=== PATIENT | male | born 1945 | race Hispanic/Latino ===

== ENCOUNTER 2018-12-12 10:04 | Observation (INO) | payer OTHER ==
--- OUTSIDE RECORDS SUMMARY | 2018-12-12 10:07 | XMS REPORT ---
:1945 [facility] Address [address] [place] [address] Care Team Providers Name Role Phone CLINT DIAZ Primary Care Provider Unavailable CLINT DIAZ Unavailable Unavailable Problems This patient has no known problems. Allergies, Adverse Reactions, Alerts This patient has no known allergies or adverse reactions. Medications This patient has no known medications. Encounters Start End Encounter Admission Attending Care Care Encounter Date/Time Date/Time Type Type Clinicians Facility Department ID 2017-08-19 2017-08-19 Outpatient C [facility] [id number] 15:42:00 15:42:00 CLINT Results Test Description Test Time Test Comments Text Results Atomic Results Result Comments Lipid Profile 2017-08-20 21:28:00 Test Item Value Reference Range Comments Cholesterol (test code=CHOL) 160 mg/dL 0-200 Triglycerides (test code=TRIG) 157 mg/dL 9-200 HDL (test code=HDL) 30 mg/dL 40-60 Chol/HDL (test code=CHOLPHDL) 5.3 Ratio 0.0-5.0 LDL, Calculated (test 99 0-130 (NOTE)RISK OF HEART DISEASEPublished code=LDLC) by [place] Heart AssociationAnalyte Optimal Boderline Increased RiskCHOL <200 200-239 >240TRIG <150 150-199 >200HDL Male: >60 <40HDL Female: >60 <50LDL <100 130-159 >160LDL NEAR OPTIMAL IS 100-129 VLDL (test code=VLDL) 31 mg/dL 5-40 LDL/HDL (test code=LDLPHDL) 3 Lipid [id number] 21:39:00 Test Item Value Reference Range Comments Cholesterol (test 102 mg/dL 0-200 code=CHOL) Triglycerides (test 220 mg/dL 9-200 code=TRIG) HDL (test code=HDL) 20 mg/dL 40-60 Chol/HDL (test 5.1 Ratio 0.0-5.0 code=CHOLPHDL) LDL, Calculated (test 38 0-130 (NOTE)RISK OF HEART code=LDLC) DISEASEPublished by [place] Heart AssociationAnalyte Optimal Boderline Increased RiskCHOL <200 200-239 >240TRIG <150 150-199 >200HDL Male: >60 <40HDL Female: >60 <50LDL <100 130-159 >160LDL NEAR OPTIMAL IS 100-129 VLDL (test code=VLDL) 44 mg/dL 5-40 LDL/HDL (test code=LDLPHDL) 2 Comprehensive Metabolic [id number] 21:39:00 Test Item Value Reference Range Comments Sodium (test code=NA) 132 mmol/L 135-145 Potassium (test code=K) 4.7 mmol/L 3.5-5.1 Chloride (test code=CL) 97 mmol/L 98-105 Carbon Dioxide (test 24 mmol/L 22-29 code=CO2) Glucose (test code=GLU) 249 mg/dL 70-115 Blood Urea Nitrogen (test 18 mg/dL 8-23 code=BUN) Creatinine (test 1.5 mg/dL 0.7-1.2 code=CREAT) Calcium (test code=CA) 9.0 mg/dL 8.3-10.5 Prot Total (test code=TP) 6.2 g/dL 6.4-8.3 Albumin (test code=ALB) 4.2 g/dL 3.5-5.2 A/G Ratio (test 2.1 Ratio code=AGRATIO) Globulin (test code=GLOB) 2.0 2.9-3.1 Bili Total (test 0.4 mg/dL 0.1-0.9 code=TBIL) Alk Phos (test 81 U/L 40-129 code=APHOS) AST (test code=AST) 19 U/L 1-40 ALT (test code=ALT) 15 U/L 1-41 BUN/Creatinine Ratio 12.0 (test code=BCRATIO) Anion Gap (test 11 mmol/L 7-16 code=AGAP) Estimated GFR (test 49 mL/min/1.73m2 eGFR (estimated Glomerular code=GFR) Filtration Rate) is an estimated value,calculated from the patient's serum creatinine using the MDRD equation.It is NOT the patient's actual GFR. The eGFR provides a more clinicallyuseful measure of kidney disease than serum creatinine alone.This calculation takes sex and race into account, if the informationis provided. If the race is not provided, and the patient isAfrican-[place], multiply by 1.212. If sex is not provided, and thepatient is female, multiply by 0.742. Results for patients <18 years ofage have not been validated by the MDRD study and should be interpretedwith caution.eGFR Result Interpretation:eGFR > or=60 is in the Normal RangeeGFR < 60 may mean kidney diseaseeGFR < 15 may mean kidney failureRanges recommended by the National Kidney Foundation,http://nkdep.nih .gov Glycosylated [id number] 21:32:00 Test Item Value Reference Range Comments HBA1c (test code=HBA1C) 7.8 % 4.8-5.9 CBC with [id number] 20:41:00 Test Item Value Reference Range Comments WBC (test code=WBC) 15.1 K/cumm 4.4-10.5 RBC (test code=RBC) 5.02 M/cumm 4.10-5.70 Hemoglobin (test code=HGB) 14.4 gm/dL 13.4-17.4 Hematocrit (test code=HCT) 46.6 % 38.7-52.0 MCV (test code=MCV) 92.7 fL 80-100 MCH (test code=MCH) 28.7 pg 27.0-32.5 MCHC (test code=MCHC) 30.9 g/dL 32.0-37.5 RDW (test code=RDW) 14.3 % 11.5-14.5 Platelet Count (test code=PLTCT) 235 K/cumm 140-440 MPV (test code=MPV) 9.0 fL Diff Method (test code=DIFFM) Auto Neutrophil (test code=NEUT) 38.3 % 36-70 Lymphocyte (test code=LYMPH) 50.0 % 12-44 Monocyte (test code=MONO) 9.3 % 0-11 Eosinophil (test code=EOS) 1.7 % 0-7 Basophil (test code=BASO) 0.8 % 0-2 Neutro Abs (test code=ANEUT) 5.8 K/cumm 1.6-7.4 Lymph Abs (test code=ALYMPH) 7.5 K/cumm 0.5-4.6 Dixon Abs (test code=AMONO) 1.4 K/cumm 0.0-1.2 Eos Abs (test code=AEOS) 0.25 K/cumm 0.00-0.74 Baso Abs (test code=ABASO) 0.1 K/cumm 0.00-0.21
[2018-12-12 11:16] LABS: Protime INR 1.15
[2018-12-12 11:23] LABS: MPV 10.4 fL (7.6-11.3); RBC Red Blood Cell Count 2.17 M/uL (4.33-5.43)
--- NOTE | 2018-12-12 11:25 | RAD REPORT ---
EXAM DESCRIPTION: RAD - Chest Single View - 12/12/2018 10:51 am CLINICAL HISTORY: Anemia, CLL, shortness of breath COMPARISON: April 2007 TECHNIQUE: AP portable chest image was obtained in 1044 hours . FINDINGS: Lungs are clear. Mediastinal and hilar regions show no mass or lymphadenopathy. Heart and vasculature are normal. No measurable pleural effusion and no pneumothorax. No acute bony abnormality seen. No acute aortic findings suspected. IMPRESSION: No acute cardiopulmonary process. No significant change from comparison.
[2018-12-12 11:31] LABS: ALT/SGPT 11 U/L (12-78); AST/SGOT 12 U/L (15-37); Alkaline Phosphatase 72 U/L (45-117); BUN Blood Urea Nitrogen 27 mg/dL (7-18); Bicarbonate 29 mmol/L (21-32); Bilirubin Direct < 0.1 mg/dL (0-0.2); Bilirubin Total 0.2 mg/dL (0.2-1.0); Glucose Level 95 mg/dL (74-106); Magnesium 2.3 mg/dL (1.8-2.4); NT PRO-BNP 386 pg/mL (<450); Potassium 4.6 mmol/L (3.5-5.1); Protein, Total 6.8 g/dL (6.4-8.2); Sodium Level 142 mmol/L (136-145); Troponin (Emerg Dept Use Only) < 0.02 ng/mL (0.0-0.045)
[2018-12-12 12:03] LABS: Platelet Estimate DECR
[2018-12-12 12:05] LABS: Anisocytosis SLIGHT; Blood Morphology Comment NOTED (NOT SEEN); Macrocytosis SLIGHT
--- NOTE | 2018-12-12 12:25 | ER ---
Nurse's Notes [facility] Name: Bhavesh Mary Jr Age: 73 yrs Sex: Male : 1945 Arrival Date: 12/12/2018 Time: 10:06 Bed 18 Private MD: Chanel Silva Diagnosis: Anemia in chronic diseases classified elsewhere Presentation: 12/12 10:37 Presenting complaint: Patient states: was sent by Dr. Riddle for anemia, pt has hx of iw CLL, had labs drawn today. Transition of care: patient was not received from another setting of care. Onset of symptoms was December 12, 2018. Risk Assessment: Do you want to hurt yourself or someone else? Patient reports no desire to harm self or others. Initial Sepsis Screen: Does the patient meet any 2 criteria? No. Patient's initial sepsis screen is negative. Does the patient have a suspected source of infection? No. Patient's initial sepsis screen is negative. Care prior to arrival: None. 10:37 Method Of Arrival: Ambulatory iw 10:37 Acuity: ALTON 3 iw Historical: - Allergies: 10:39 No Known Allergies; iw - PMHx: 13:15 Hypertension; chronic lymphocytic leukemia; Diabetes - IDDM; em - Immunization history:: Adult Immunizations unknown. - Social history:: Smoking status: Patient/guardian denies using tobacco. - Ebola Screening: : Patient negative for fever greater than or equal to 101.5 degrees Fahrenheit, and additional compatible Ebola Virus Disease symptoms Patient denies exposure to infectious person Patient denies travel to an Ebola-affected area in the 21 days before illness onset No symptoms or risks identified at this time. Screenin:19 Abuse screen: Denies threats or abuse. Nutritional screening: No deficits noted. em Tuberculosis screening: No symptoms or risk factors identified. Fall Risk None identified. Assessment: 10:30 General: Appears in no apparent distress. comfortable, Behavior is calm, cooperative, em Denies fever. Pain: Denies pain. Neuro: Level of Consciousness is awake, alert, obeys commands, Oriented to person, place, time, situation, Reports dizziness, several weeks. Cardiovascular: Capillary refill < 3 seconds Patient's skin is warm and dry. Respiratory: Airway is patent Respiratory effort is even, unlabored, Respiratory pattern is regular, symmetrical. GI: Abdomen is flat, Patient currently denies bloody stool. Derm: Skin is intact, is healthy with good turgor, Skin is dry, Skin is pale. Musculoskeletal: Capillary refill < 3 seconds, Range of motion: intact in all extremities. 11:19 Reassessment: Patient appears in no apparent distress at this time. Patient and/or em family updated on plan of care and expected duration. Pain level reassessed. Patient is alert, oriented x 3, equal unlabored respirations, skin warm/dry/pink. Patient denies pain at this time. 12:08 Reassessment: Dr. Arce at bedside. iw 13:07 Reassessment: Patient appears in no apparent distress at this time. Patient and/or em family updated on plan of care and expected duration. Pain level reassessed. Patient is alert, oriented x 3, equal unlabored respirations, skin warm/dry/pink. eating lunch tray, ate 100%, tolerated well Patient denies pain at this time. Vital Signs: 10:19 BP 136 / 43; Pulse 80; Resp 18; Pulse Ox 99% on R/A; Pain 0/10; em 11:19 BP 130 / 44; Pulse 69; Resp 18; Pulse Ox 98% on R/A; em 12:14 BP 127 / 53; Pulse 71; Resp 16; Pulse Ox 100% on R/A; em 13:09 BP 160 / 54; Pulse 80; Resp 16; Temp 97.8(O); Pulse Ox 100% on R/A; Pain 0/10; em ED Course: 10:06 Patient arrived in ED. as 10:06 Chanel Silva MD is Private Physician. as 10:15 Jeanette Suh, SHARLENE is Primary Nurse. iw 10:23 [facility]onsalez [facility]. cp 10:23 Jan Early MD is Attending Physician. cp 10:30 Patient has correct armband on for positive identification. Placed in gown. Bed in low em position. Call light in reach. Adult w/ patient. whitewater rafting guide on. Pulse ox on. NIBP on. 10:38 Triage completed. iw 10:39 Arm band placed on. iw 10:48 Initial lab(s) drawn, by me, sent to lab. T\T\S collected, blood band applied to patient. em1 10:48 Inserted saline lock: 20 gauge in right antecubital area, using aseptic technique. em1 Blood collected. 10:50 X-ray completed. Portable x-ray completed in exam room. Patient tolerated procedure jb2 well. 10:52 XRAY Chest (1 view) In Process Unspecified. EDMS 12:24 Yan Arce DO is Hospitalizing Provider. cp 12:56 EKG done, by hydroelectric plant technician. reviewed by Jerson BRUMFIELD. tc 13:30 No provider procedures requiring assistance completed. Patient admitted, IV remains in em place. Administered Medications: No medications were administered Outcome: 12:24 Decision to Hospitalize by Provider. cp 13:30 Admitted to Med/surg accompanied by tech, family with patient, via wheelchair, room em 425, with chart, Report called to SHARLENE Foster 13:30 Condition: good 13:30 Instructed on the need for admit, Demonstrated understanding of instructions. 13:48 Patient left the ED. em Signatures: Dispatcher [employer] EDMS Horacio Huerta jb2 Gualberto Camarena, LOCOMOTIVE FIRER LOCOMOTIVE FIRER em Gris Vergara Irene, RN SHARLENE Miguel Angel Vergara em1 Heidi Perales, operational risk analyst EKG Ttc Jerson Gonsalez PA PA cp
--- NOTE | 2018-12-12 12:25 | EDPHYS ---
Physician Documentation [facility] Name: Bhavesh Mary Jr Age: 73 yrs Sex: Male : 1945 Arrival Date: 12/12/2018 Time: 10:06 Bed 18 Private MD: Chanel Silva ED Physician Jan Early HPI: 12/12 10:40 This 73 yrs old Male presents to ER via Ambulatory with complaints of Abnormal cp Lab Results. 10:40 Patient reports general fatigue. cp 10:40 Onset: The symptoms/episode began/occurred gradually. Patient referred to ED from cp oncology for anemia. Patient with history of Small Lymphocytic Lymphoma. Patient not currently receiving chemo or radiation. Historical: - Allergies: 10:39 No Known Allergies; iw - PMHx: 13:15 Hypertension; chronic lymphocytic leukemia; Diabetes - IDDM; em - Immunization history:: Adult Immunizations unknown. - Social history:: Smoking status: Patient/guardian denies using tobacco. - Ebola Screening: : Patient negative for fever greater than or equal to 101.5 degrees Fahrenheit, and additional compatible Ebola Virus Disease symptoms Patient denies exposure to infectious person Patient denies travel to an Ebola-affected area in the 21 days before illness onset No symptoms or risks identified at this time. ROS: 10:45 Constitutional: Positive for fatigue, Negative for body aches, chills, fever, poor PO cp intake. 10:45 Eyes: Negative for injury, pain, redness, and discharge. cp 10:45 ENT: Negative for drainage from ear(s), ear pain, sore throat, difficulty swallowing, difficulty handling secretions. 10:45 Cardiovascular: Negative for chest pain, edema, palpitations. 10:45 Respiratory: Negative for cough, shortness of breath, wheezing. 10:45 Abdomen/GI: Negative for abdominal pain, vomiting, diarrhea, constipation, black/tarry stool, rectal bleeding. 10:45 Skin: Negative for cellulitis, rash. 10:45 Neuro: Negative for altered mental status, dizziness, headache, syncope, weakness. 10:45 All other systems are negative. Exam: 11:00 Constitutional: The patient appears in no acute distress, alert, awake, cp non-diaphoretic, non-toxic, well developed, well nourished. 11:00 Head/Face: Normocephalic, atraumatic. cp 11:00 Eyes: Periorbital structures: appear normal, Pupils: equal, round, and reactive to light and accomodation, Extraocular movements: intact throughout, Conjunctiva: normal, no exudate, no injection, Sclera: no appreciated abnormality, Lids and lashes: appear normal, bilaterally. 11:00 ENT: External ear(s): are unremarkable, Nose: is normal, Mouth: Lips: moist, Oral mucosa: moist, Posterior pharynx: Airway: no evidence of obstruction, patent. 11:00 Neck: ROM/movement: is normal, is supple, without pain, no range of motions limitations, no nuchal rigidity. 11:00 Chest/axilla: Inspection: normal, Palpation: is normal, no crepitus, no tenderness. 11:00 Cardiovascular: Rate: normal, Rhythm: regular, Edema: ankle edema, that is mild, JVD: is not appreciated. 11:00 Respiratory: the patient does not display signs of respiratory distress, Respirations: normal, no use of accessory muscles, no retractions, no splinting, no tachypnea, labored breathing, is not present, Breath sounds: are clear throughout, no decreased breath sounds, no stridor, no wheezing. 11:00 Abdomen/GI: Inspection: abdomen appears normal, Bowel sounds: active, all quadrants, Palpation: abdomen is soft and non-tender, Rectal exam: Stool: brown, guaiac negative. 11:00 Back: pain, is absent, ROM is normal. 11:00 Skin: Appearance: normal except for affected area, Color: pale. 11:00 Neuro: Orientation: to person, place \T\ time. Mentation: is normal, Cerebellar function: is grossly normal, Motor: moves all fours, strength is normal. 11:38 ECG was reviewed by the Attending Physician. cp Vital Signs: 10:19 BP 136 / 43; Pulse 80; Resp 18; Pulse Ox 99% on R/A; Pain 0/10; em 11:19 BP 130 / 44; Pulse 69; Resp 18; Pulse Ox 98% on R/A; em 12:14 BP 127 / 53; Pulse 71; Resp 16; Pulse Ox 100% on R/A; em 13:09 BP 160 / 54; Pulse 80; Resp 16; Temp 97.8(O); Pulse Ox 100% on R/A; Pain 0/10; em MDM: 10:35 Patient medically screened. cp 12:10 Data reviewed: vital signs, nurses notes, lab test result(s), EKG, radiologic studies, cp plain films. 12:10 Differential Diagnosis chronic anemia, GI bleed. Test interpretation: by ED physician cp or midlevel provider: ECG, plain radiologic studies. Counseling: I had a detailed discussion with the patient and/or guardian regarding: the historical points, exam findings, and any diagnostic results supporting the discharge/admit diagnosis, lab results, radiology results. 12:20 Physician consultation: Yan Arce DO regarding admission, to the telemetry unit. cp patient's condition, and will see patient in ED, shortly. 12/12 10:33 Order name: Basic Metabolic Panel; Complete Time: 11:40 cp 12/12 11:40 Interpretation: Normal except: BUN 27; CRE 1.94; GFR 34. cp 12/12 10:33 Order name: CBC with Diff cp 12/12 11:41 Interpretation: Normal except: WBC 21.6; RBC 2.17; HGB 7.4; HCT 23.0; MCV 105.9; MCH cp 34.3; PLT 67; RDW 15.6. 12/12 10:33 Order name: LFT's; Complete Time: 11:40 cp 12/12 11:50 Interpretation: Normal except: AST 12; ALT 11. cp 12/12 10:33 Order name: Magnesium; Complete Time: 11:40 cp 12/12 10:33 Order name: NT PRO-BNP; Complete Time: 11:40 cp 12/12 10:33 Order name: PT-INR; Complete Time: 11:40 cp 12/12 10:33 Order name: Troponin (emerg Dept Use Only); Complete Time: 11:40 cp 12/12 10:33 Order name: XRAY Chest (1 view); Complete Time: 11:40 cp 12/12 10:33 Order name: EKG; Complete Time: 10:36 cp 12/12 10:33 Order name: Cardiac monitoring; Complete Time: 12:33 cp 12/12 10:53 Order name: Type And Screen iw 12/12 12:05 Order name: Manual Differential EDMS 12/12 12:28 Order name: Diet Regular; Complete Time: 12:31 em1 12/12 13:02 Order name: ABO/RH no charge EDMT 12/12 10:33 Order name: EKG - Nurse/Tech; Complete Time: 12:33 cp 12/12 10:33 Order name: IV Saline Lock; Complete Time: 11:07 cp 12/12 10:33 Order name: Labs collected and sent; Complete Time: 11:07 cp 12/12 10:33 Order name: O2 Per Protocol; Complete Time: 12:32 cp 12/12 10:33 Order name: O2 Sat Monitoring; Complete Time: 12:32 cp EC:38 Rate is 68 beats/min. Rhythm is regular. [place] interval is normal. QRS interval is cp prolonged at 132 msec. QT interval is normal. Interpreted by me. Reviewed by me. Administered Medications: No medications were administered Disposition: 16:52 Co-signature as Attending Physician, Jan Early MD. Disposition: 12/12/18 12:24 Hospitalization ordered by Yan Arce for Observation. Preliminary diagnosis is Anemia in chronic diseases classified elsewhere. - Bed requested for Telemetry/MedSurg (observation). - Status is Observation. em - Condition is Stable. - Problem is new. - Symptoms are unchanged. UTI on Admission? No Signatures: Dispatcher [employer] [facility] Gualberto Camarena, HAZARDOUS MATERIALS WASTE TECHNICIAN HAZARDOUS MATERIALS WASTE TECHNICIAN em Jeanette Suh RN RN Jerson Monteiro PA PA cp Starr, Gregory, MD MD Hiral Alba Corrections: (The following items were deleted from the chart) 12:41 12:24 Hospitalization Ordered by Yan Arce DO for Observation. Preliminary eb diagnosis is Anemia in chronic diseases classified elsewhere. Bed requested for Telemetry/MedSurg (observation). Status is Observation. Condition is Stable. Problem is new. Symptoms are unchanged. UTI on Admission? No. cp 13:48 12:41 12/12/2018 12:24 Hospitalization Ordered by Yan Arce DO for Observation. em Preliminary diagnosis is Anemia in chronic diseases classified elsewhere. Bed requested for Telemetry/MedSurg (observation). Status is Observation. Condition is Stable. Problem is new. Symptoms are unchanged. UTI on Admission? No. eb
--- NOTE | 2018-12-12 12:42 | P.HP ---
Certification for Inpatient Patient admitted to: Observation With expected LOS: <2 Midnights Patient will require the following post-hospital care: None Practitioner: I am a practitioner with admitting privileges, knowledge of patient current condition, hospital course, and medical plan of care. Services: Services provided to patient in accordance with Admission requirements found in Title 42 Section 412.3 of the Code of Federal Regulations Patient History Date of Service: 12/12/18 Primary Care Provider: Dr. Moura([place], [place]); Oncology-Dr. Howard Reason for admission: Abnormal lab History of Present Illness: 73-year-old male presented to the emergency room due to abnormal lab. Patient has history of CLL/SLL, CAD with prior stent, diabetes mellitus type 2 insulin dependent, hypertension, stage III renal disease and hyperlipidemia. Patient has followed up with Oncology for his CLL/SLL. Patient had lab drawn today at his oncologist office which showed abnormal lab. Hemoglobin was 7.5. This has been different since his baseline. Last hemoglobin 8.3 done last week as reported by oncology. Oncology is currently working up his anemia. Oncology planned for outpatient transfusion but this could not be arranged. Therefore patient was sent for further evaluation. In the ER patient reported no nausea, vomiting, diarrhea, constipation, melena or chest pain. Patient reports no coughing up blood or vomiting of blood. Patient only reports some lightheadedness and fatigue over the last week. No shortness of breath noted. In the ER hemoglobin was 7.4, hematocrit 23. White count 21.6 with a platelet count of 67. Sodium 142, potassium 4.0. Creatinine 1.94 with a GFR 34. Glucose 94. Patient was admitted for further evaluation and transfusion. When I saw the patient ER, he appeared stable. Case discussed with oncology. Due to his cardiac disease oncology recommended admission for observation for transfusion of at least 2 units. Patient reports last EGD colonoscopy done 3 years ago, unremarkable. Home medications list reviewed: Yes - Past Medical/Surgical History Diabetic: Yes -: Diabetes mellitus type 2, insulin dependent -: Hypertension -: CAD with prior stents -: Hyperlipidemia -: CLL/SLL -: Chronic renal disease, stage III -: Heart catheterization with 4 stents -: Appendectomy -: Right knee replacement Psychosocial/ Personal History: Patient is . He has no children - Family History Father -: Cancer (Unknown etiology) - Social History Smoking Status: Former smoker Alcohol use: No CD- Drugs: No Caffeine use: Yes Place of Residence: Home Review of Systems General: Weakness, As per HPI Eyes: Unremarkable ENT: Unremarkable Respiratory: Unremarkable Cardiovascular: Light Headedness, As per HPI Gastrointestinal: Unremarkable Genitourinary: Unremarkable Musculoskeletal: Unremarkable Integumentary: Unremarkable Neurological: Unremarkable Lymphatics: Unremarkable Physical Examination - Physical Exam General: Alert, In no apparent distress, Oriented x3, Cooperative HEENT: Atraumatic, Normocephalic, PERRLA, Mucous membr. moist/pink Neck: Supple, No Thyromegaly Respiratory: Clear to auscultation bilaterally, Normal air movement Cardiovascular: Normal pulses, Regular rate/rhythm Gastrointestinal: Normal bowel sounds, Soft and benign, Non-distended, No tenderness, No masses, No rebound, No guarding Musculoskeletal: No erythema, No tenderness, No warmth Integumentary: Tenderness/swelling (Pedal edema to the lower extremities bilateral noted.) Neurological: Normal speech, Normal strength at 5/5 x4 extr, Normal tone, Normal affect - Studies Laboratory Data (last 24 hrs) 12/12/18 10:48: PT 13.5 H, INR 1.15 12/12/18 10:48: WBC 21.6 H*, Hgb 7.4 L*, Hct 23.0 L, Plt Count 67 L 12/12/18 10:48: Sodium 142, Potassium 4.6, BUN 27 H, Creatinine 1.94 H, Glucose 95, Magnesium 2.3, Total Bilirubin 0.2, AST 12 L, ALT 11 L, Alkaline Phosphatase 72 Assessment and Plan - Plan Impression: Acute on chronic anemia with thrombocytosis related to CLL/SLL CAD with prior stents Diabetes mellitus type 2, insulin-dependent Hypertension Hyperlipidemia Edema to the lower extremities Chronic renal disease, stage III Plan: Acute on chronic anemia with thrombocytosis related to CLL/SLL: Case discussed with oncology. Patient will be admitted for observation. Oncology recommends to transfuse at least 2 units. She prefers to have hemoglobin above 9.0 due to his cardiac history. Oncology is actively working up his anemia as an outpatient. Patient to have CT scans and bone marrow biopsy next week. Patient previously had EGD colonoscopy 3 years ago which was unremarkable. Patient will likely require GI evaluation as an outpatient. Will continue with transfusion. Will provide Lasix 20 mg IV after each unit. Will continue monitor closely. Anticipate discharge tomorrow. CAD with prior stents: Will review and restart home medication. Diabetes mellitus type 2, insulin-dependent: Will start basal insulin and sliding scale. Will monitor and adjust appropriately. Hypertension: Will need to review and restart home medication. Hyperlipidemia: Will need to review and restart home medication. Edema to the lower extremities: Mild pitting edema to the lower extremities bilateral. Will check echocardiogram to evaluate for underlying CHF. Patient will be given Lasix after each transfusion. Will monitor and adjust appropriately. Chronic renal disease, stage III: This can be further addressed as an outpatient. Will monitor closely. Will adjust medication per renal function. Recommended no use of nonsteroidal anti-inflammatories. Future medications will need to be renally dosed. Discharge Plan: Home Plan to discharge in: 24 Hours - Advance Directives Does patient have a Living Will: No Does patient have a Durable POA for Healthcare: No - Code Status/Comfort Care Code Status Assessed: Yes (Patient is full code.) Time Spent Managing Pts Care (In Minutes): 55
[2018-12-12] MEDS ORDERED: GLUCAGON 1 MG/VIAL IM PRN (13:16)
[2018-12-12] MEDS ORDERED: ONDANSETRON 4 MG/2 ML VIAL IV PRN (13:16)
[2018-12-12] MEDS ORDERED: ACETAMINOPHEN 500 MG TAB PO PRN (13:16)
[2018-12-12] MEDS ORDERED: D50W 25 GM/50 ML SYRINGE IV PRN (13:16)
--- NOTE | 2018-12-12 13:22 | EKG ---
Test Date: 2018-12-12 Test Time: 11:30:49 Certified Registered Locksmith: CHU MEASUREMENT RESULTS: Intervals: Rate: 68 IA: 168 QRSD: 132 QT: 422 QTc: 448 Merritt: P: 52 IA: 168 QRS: 12 T: 19 INTERPRETIVE STATEMENTS: Normal sinus rhythm Right bundle branch block Cannot rule out Inferior infarct, age undetermined Abnormal ECG No previous ECG available for comparison Electronically Signed On 12-12-18 13:22:16 CDT by Ian Johnson
[2018-12-12 13:54] VITALS: BMI 25.9
[2018-12-12] MEDS: FAMOTIDINE 20 MG TAB PO SCH (14:31)
[2018-12-12] MEDS ORDERED: NA CHLORIDE 0.9% 250 ML ONE (14:38)
[2018-12-12 14:50] LABS: Urine Appearance CLEAR; Urine Bilirubin NEGATIVE (NEG); Urine Blood NEGATIVE (NEG); Urine Color YELLOW; Urine Glucose NEGATIVE (NEG); Urine Protein TRACE (NEG); Urine Specific Gravity 1.015 (1.005-1.030); Urine pH 7.5 (5.0-7.0)
[2018-12-12 14:57] LABS: Urine Microscopic Reflex ORDER UMIC
[2018-12-12 15:06] LABS: Urine Bacteria <20 /HPF (NONE SEEN); Urine Culture Reflex Order NOT NEEDED; Urine Mucus 1+ /HPF (NONE SEEN); Urine RBC NONE SEEN /HPF (NONE SEEN)
[2018-12-12] MEDS: INSULIN -REGULAR HUMAN 50 UNIT/0.5 ML ML SQ SCH ×2 (15:55→21:00)
[2018-12-12] MEDS: FUROSEMIDE 20 MG/ 2ML VIAL IV SCH (18:39)
[2018-12-12] MEDS ORDERED: ATORVASTATIN 10 MG TAB PO SCH (21:00)
[2018-12-12] MEDS: INSULIN GLARGINE 100 UNITS/ML SQ SCH ×2 (21:00→22:03)
[2018-12-12] MEDS: GABAPENTIN 300 MG CAP PO SCH (22:02)
[2018-12-13] MEDS ORDERED: NA CHLORIDE 0.9% 250 ML ONE (00:03)
[2018-12-13] MEDS: FUROSEMIDE 20 MG/ 2ML VIAL IV SCH (02:54)
[2018-12-13 04:25] LABS: Absolute Lymphocytes (CBC) 23.4 K/uL (0.7-4.9); Basophils % 0.1 % (0-1.3); Eosinophils % 0.3 % (0-4.4); Hematocrit 31.3 % (39.6-49.0); Lymphocytes % 94.7 % (15.3-44.8); Monocytes % 0.8 % (3.3-12.3); RBC Red Blood Cell Count 3.23 M/uL (4.33-5.43)
[2018-12-13 04:33] LABS: Magnesium 2.2 mg/dL (1.8-2.4); Potassium 4.4 mmol/L (3.5-5.1)
[2018-12-13] MEDS: INSULIN -REGULAR HUMAN 50 UNIT/0.5 ML ML SQ SCH ×2 (07:30→11:30)
[2018-12-13 08:54] VITALS: TEMP 98.4
[2018-12-13] MEDS ORDERED: LISINOPRIL 10 MG TAB PO SCH ×2 (09:00)
[2018-12-13] MEDS ORDERED: TAMSULOSIN 0.4 MG SR CAP PO SCH (09:00)
[2018-12-13] MEDS ORDERED: ALLOPURINOL 100 MG TAB PO SCH (09:00)
[2018-12-13] MEDS ORDERED: ASPIRIN EC 81 MG TAB PO SCH (09:00)
[2018-12-13] MEDS ORDERED: SITAGLIPTIN PHOS 100 MG TAB PO SCH (09:00)
[2018-12-13] MEDS: GABAPENTIN 300 MG CAP PO SCH (09:09)
[2018-12-13] MEDS: FAMOTIDINE 20 MG TAB PO SCH (09:10)
[2018-12-13 10:59] VITALS: O2SAT 98
--- NOTE | 2018-12-13 11:58 | P.DS ---
Admission Date: 12/12/18 Discharge Date: 12/13/18 Primary Care Provider: Dr. Moura([place], [place]); Oncology-Dr. Howard Disposition: ROUTINE DISCHARGE Discharge Condition: GOOD Reason for Admission: Abnormal lab Consultations: Hematology/Oncology-Dr. 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 Patient has history of CLL/SLL, CAD with prior stent, diabetes mellitus type 2 insulin dependent, hypertension, stage III renal disease and hyperlipidemia. Patient has followed up with Oncology for his CLL/SLL. Patient had lab drawn today at his oncologist office which showed abnormal lab. Hemoglobin was 7.5. This has been different since his baseline. Last hemoglobin 8.3 done last week as reported by oncology. Oncology is currently working up his anemia. Oncology planned for outpatient transfusion but this could not be arranged. Therefore patient was sent for further evaluation. In the ER patient reported no nausea, vomiting, diarrhea, constipation, melena or chest pain. Patient reports no coughing up blood or vomiting of blood. Patient only reports some lightheadedness and fatigue over the last week. No shortness of breath noted. In the ER hemoglobin was 7.4, hematocrit 23. White count 21.6 with a platelet count of 67. Sodium 142, potassium 4.0. Creatinine 1.94 with a GFR 34. Glucose 94. Patient was admitted for further evaluation and transfusion. When I saw the patient ER, he appeared stable. Case discussed with oncology. Due to his cardiac disease oncology recommended admission for observation for transfusion of at least 2 units. Patient reports last EGD colonoscopy done 3 years ago, unremarkable. Hospital Course: Patient presented with acute on chronic anemia with thrombocytosis related to CLL/SLL. Patient was sent from Oncology office due to low hemoglobin. Hemoglobin was 7.4. Oncology was not able to arrange for outpatient transfusion. Patient required hospitalization for transfusion to maintain hemoglobin above 8.0 due to his underlying CAD. Patient was given 2 units of blood. Hemoglobin improved to 10.2. Patient asymptomatic at this time. Patient will be discharged home today. Patient will follow up with oncology on Saturday. Oncology plans for CT scans and bone marrow biopsy next week. Oncology to further monitor and address closely. Patient may require GI evaluation as an outpatient to further address as well. This may require EGD/ colonoscopy. Patient with history of CAD and prior stents, hypertension. Blood pressure remained stable. At discharge he will continue with lisinopril 20 mg daily. Recommend to maintain blood pressures less 150/80. Further adjustment can be done by his PCP. Patient with diabetes mellitus type 2, insulin dependent. Blood sugar remained stable. At discharge he will continue with his insulin regimen of Levemir 45 units subcu daily and 35 units subcu at supper time. Patient also takes Januvia 100 mg daily. Recommend to maintain blood sugars less 140 fasting and less than 200 after meals. Further adjustment can be done by his PCP. Patient with hyperlipidemia. Patient will continue with Lipitor 10 mg at bedtime. Patient with diabetic neuropathy. Patient will continue with gabapentin 300 mg twice daily. Patient with chronic renal disease, stage III. This remained stable. Patient will continue with allopurinol 100 mg 2 pills daily. Recommend to recheck lab- BMP in 1-2 weeks to monitor his progress. Recommend follow up with nephrology as an outpatient to further address. Recommend no further use of nonsteroidal anti-inflammatories. Future medications will need to be renally dosed. Patient likely with underlying diastolic chronic CHF. Patient will continue with his Lasix regimen as directed. Patient will continue with a 1500 cc per day fluid restriction and low-salt diet. If his weight increases by more than 5 lb he is to contact his PCP or superintendent communications to further address. Vital Signs/Physical Exam: Temp Pulse Resp BP Pulse Ox 98.4 F 66 16 158/68 H 98 12/13/18 08:00 12/13/18 09:09 12/13/18 08:00 12/13/18 09:09 12/13/18 08:00 General: Alert, In no apparent distress, Oriented x3, Cooperative HEENT: Atraumatic Neck: Supple Respiratory: Clear to auscultation bilaterally, Normal air movement Cardiovascular: Normal pulses, Regular rate/rhythm Gastrointestinal: Normal bowel sounds, Soft and benign, Non-distended, No tenderness, No masses, No rebound, No guarding Musculoskeletal: No erythema, No tenderness, No warmth Integumentary: No tenderness/swelling, No erythema, No warmth, No cyanosis Neurological: Normal speech, Normal strength at 5/5 x4 extr, Normal tone, Normal affect Laboratory Data at Discharge: WBC 24.6 K/uL (4.3-10.9) H* 12/13/18 03:50 Hgb 10.2 g/dL (13.6-17.9) L D 12/13/18 03:50 Hct 31.3 % (39.6-49.0) L D 12/13/18 03:50 Plt Count 62 K/uL (152-406) L 12/13/18 03:50 PT 13.5 SECONDS (9.5-12.5) H 12/12/18 10:48 INR 1.15 12/12/18 10:48 Sodium 140 mmol/L (136-145) 12/13/18 03:50 Potassium 4.4 mmol/L (3.5-5.1) 12/13/18 03:50 BUN 28 mg/dL (7-18) H 12/13/18 03:50 Creatinine 2.07 mg/dL (0.55-1.3) H 12/13/18 03:50 Glucose 79 mg/dL (74-106) 12/13/18 03:50 Magnesium 2.2 mg/dL (1.8-2.4) 12/13/18 03:50 Total Bilirubin 0.2 mg/dL (0.2-1.0) 12/12/18 10:48 AST 12 U/L (15-37) L 12/12/18 10:48 ALT 11 U/L (12-78) L 12/12/18 10:48 Alkaline Phosphatase 72 U/L (45-117) 12/12/18 10:48 Home Medications: Allopurinol 2 tab PO DAILY 12/12/18 Atorvastatin Calcium 1 tab PO BEDTIME 12/12/18 Furosemide 0.5 tab PO SEECOM 12/12/18 Gabapentin 1 tab PO BID 12/12/18 Insulin Detemir [Levemir Flextouch] 35 unit SQ DAILY AT SUPPER 12/12/18 Insulin Detemir [Levemir Flextouch] 45 unit SQ DAILY 12/12/18 Lisinopril [Prinivil*] 1 tab PO DAILY 12/12/18 Sitagliptin Phosphate [Januvia*] 1 tab PO DAILY 12/12/18 Tamsulosin [Flomax*] 1 tab PO DAILY 12/12/18 Patient Discharge Instructions: 1. Recommend a follow up with his PCP in 1-2 weeks to follow up this hospitalization. 2. Patient presented with acute on chronic anemia with thrombocytosis related to CLL/SLL. Patient was sent from Oncology office due to low hemoglobin. Hemoglobin was 7.4. Oncology was not able to arrange for outpatient transfusion. Patient required hospitalization for transfusion to maintain hemoglobin above 8.0 due to his underlying CAD. Patient was given 2 units of blood. Hemoglobin improved to 10.2. Patient asymptomatic at this time. Patient will be discharged home today. Patient will follow up with oncology on Saturday. Oncology plans for CT scans and bone marrow biopsy next week. Oncology to further monitor and address closely. Patient may require GI evaluation as an outpatient to further address as well. This may require EGD/colonoscopy. 3. Patient with history of CAD and prior stents, hypertension. Blood pressure remained stable. At discharge he will continue with lisinopril 20 mg daily. Recommend to maintain blood pressures less 150/80. Further adjustment can be done by his PCP. 4. Patient with diabetes mellitus type 2, insulin dependent. Blood sugar remained stable. At discharge he will continue with his insulin regimen of Levemir 45 units subcu daily and 35 units subcu at supper time. Patient also takes Januvia 100 mg daily. Recommend to maintain blood sugars less 140 fasting and less than 200 after meals. Further adjustment can be done by his PCP. 5. Patient with hyperlipidemia. Patient will continue with Lipitor 10 mg at bedtime. 6. Patient with diabetic neuropathy. Patient will continue with gabapentin 300 mg twice daily. 7. Patient with chronic renal disease, stage III. This remained stable. Patient will continue with allopurinol 100 mg 2 pills daily. Recommend to recheck lab-BMP in 1-2 weeks to monitor his progress. Recommend follow up with nephrology as an outpatient to further address. Recommend no further use of nonsteroidal anti-inflammatories. Future medications will need to be renally dosed. 8. Patient likely with underlying diastolic chronic CHF. Patient will continue with his Lasix regimen as directed. Patient will continue with a 1500 cc per day fluid restriction and low-salt diet. If his weight increases by more than 5 lb he is to contact his PCP or superintendent communications to further address. Diet: Renal Activity: Fall precautions Followup: Pant Dhodapkar,Chanel, MD [ACTIVE - CAN ADMIT] - (call to schedule appointment ) Time spent managing pt's care (in minutes): 55
[2018-12-13 12:41] VITALS: BP 154/60
--- NOTE | 2018-12-15 07:34 | ECHO ---
HEIGHT: 5 ft 8 in WEIGHT: 171 lb 0 oz DATE OF STUDY: 12/12/[address]: Yan Arce DO 2-DIMENSIONAL: YES M.MODE: YES DOPPLER: YES COLOR FLOW: YES TDS: PORTABLE: DEFINITY: BUBBLE STUDY: DIAGNOSIS: CORNARY ARTERY DISEASE, HYPERTENSION CARDIAC HISTORY: CATHERIZATION: YES SURGERY: NO PROSTHETIC VALVE: NO PACEMAKER: NO MEASUREMENTS (cm) DIASTOLIC (NORMALS) SYSTOLIC (NORMALS) IVSd 1.0 (0.6-1.2) LA Diam 4.1 (1.9-4.0) LVEF 66% LVIDd 3.9 (3.5-5.7) LVIDs 2.5 (2.0-3.5) %FS 36% LVPWd 1.0 (0.6-1.2) Ao Diam 2.8 (2.0-3.7) 2 DIMENSIONAL ASSESSMENT: RIGHT ATRIUM: NORMAL LEFT ATRIUM: DILATED RIGHT VENTRICLE: NORMAL LEFT VENTRICLE: NORMAL TRICUSPID VALVE: NORMAL MITRAL VALVE: NORMAL PULMONIC VALVE: NORMAL AORTIC VALVE: NORMAL PERICARDIAL EFFUSION: NONE AORTIC ROOT: NORMAL LEFT VENTRICULAR WALL MOTION: NORMAL DOPPLER/COLOR FLOW: MILD MITRAL AND TRICUSPID REGURGITATION. NORMAL RIGHT VENTRICULAR SYSTOLIC PRESSURE. COMMENTS: NORMAL LEFT VENTRICULAR EJECTION FRACTION. DILATED LEFT ATRIUM. MILD MITRAL AND TRICUSPID REGURGITATION. TECHNOLOGIST: CARLO GAMBOA
== END 2018-12-13 11:35 | disposition home or self-care (01) ==
LOC: ER 10:04 → ERHOLD 12:38 → 4TH 13:19
PROVIDERS: ADMIT Family Medicine; ATTEND Family Medicine
PROC: 30233N1 Transfusion of Nonautologous Red Blood Cells into Peripheral Vein, Percutaneous Approach (ICD-10-PCS; principal; 2018-12-13)
DX: D64.9 Anemia, unspecified (principal); D47.3 Essential (hemorrhagic) thrombocythemia; C91.10 Chronic lymphocytic leukemia of B-cell type not having achieved remission; I25.10 Atherosclerotic heart disease of native coronary artery without angina pectoris; E78.5 Hyperlipidemia, unspecified; R60.9 Edema, unspecified; I12.9 Hypertensive chronic kidney disease with stage 1 through stage 4 chronic kidney disease, or unspecified chronic kidney disease; E11.22 Type 2 diabetes mellitus with diabetic chronic kidney disease; N18.3 Chronic kidney disease, stage 3 (moderate); Z95.5 Presence of coronary angioplasty implant and graft; E11.40 Type 2 diabetes mellitus with diabetic neuropathy, unspecified
CPT/HCPCS: 36430 ×2; 93005; 93306; 85025 ×2; 80048 ×2; 36415 ×2; 86900; 83735 ×2; 86850; 85610; 85044; 86901; 82962 ×4; 80076; 84484; 82746; 82607; 83880; 82668; 71045; 99285; J1940 ×2; P9016 ×2; 81003; 81015

== ENCOUNTER 2018-12-29 14:22 | Emergency (ER) | payer OTHER ==
--- OUTSIDE RECORDS SUMMARY | 2018-12-29 14:27 | XMS REPORT ---
:1945 [facility] Address [address] [place] [address] [address]. [address] [place] [address] Care Team Providers Name Role Phone CLINT [...] Department ID 2017-08-19 2017-08-19 Outpatient C [facility] [id number] 15:42:00 15:42:00 CLINT Results Test Description Test Time Test Comments Text Results Atomic Results Result Comments Lipid Profile 2017-08-20 21:28:00 Test Item Value Reference Range Comments Cholesterol (test code=CHOL) 160 mg/dL 0-200 Triglycerides (test code=TRIG) 157 mg/dL 9-200 HDL (test code=HDL) 30 mg/dL 40-60 Chol/HDL (test code=CHOLPHDL) 5.3 Ratio 0.0-5.0 LDL, Calculated (test 99 0-130 (NOTE)RISK OF HEART DISEASEPublished code=LDLC) by [place] Heart AssociationAnalyte Optimal Boderline Increased RiskCHOL <200 200-239 >240TRIG <150 150-199 >200HDL Male: >60 <40HDL Female: >60 <50LDL <100 130-159 >160LDL NEAR OPTIMAL IS 100-129 VLDL (test code=VLDL) 31 mg/dL 5-40 LDL/HDL (test code=LDLPHDL) 3 Lipid [id number] 21:39:00 Test Item Value Reference Range Comments Cholesterol (test 102 mg/dL 0-200 code=CHOL) Triglycerides (test 220 mg/dL 9-200 code=TRIG) HDL (test code=HDL) 20 mg/dL 40-60 Chol/HDL (test 5.1 Ratio 0.0-5.0 code=CHOLPHDL) LDL, Calculated (test 38 0-130 (NOTE)RISK OF HEART code=LDLC) DISEASEPublished by [place] Heart AssociationAnalyte Optimal Boderline Increased RiskCHOL <200 200-239 >240TRIG <150 150-199 >200HDL Male: >60 <40HDL Female: >60 <50LDL <100 130-159 >160LDL NEAR OPTIMAL IS 100-129 VLDL (test code=VLDL) 44 mg/dL 5-40 LDL/HDL (test code=LDLPHDL) 2 Comprehensive Metabolic [id number] 21:39:00 Test Item Value Reference Range Comments [...] race is not provided, and the patient isAfrican-Congolese, multiply by 1.212. If sex is not provided, and thepatient is female, multiply by 0.742. Results for patients <18 years ofage have not been validated by the MDRD study and should be interpretedwith caution.eGFR Result Interpretation:eGFR > or=60 is in the Normal RangeeGFR < 60 may mean kidney diseaseeGFR < 15 may mean kidney failureRanges recommended by the National Kidney Foundation,http://nkdep.nih .gov Glycosylated [id number] 21:32:00 Test Item Value Reference Range Comments HBA1c (test code=HBA1C) 7.8 % 4.8-5.9 CBC with [id number] 20:41:00 Test Item Value Reference Range Comments [...] Lymph Abs (test code=ALYMPH) 7.5 K/cumm 0.5-4.6 [place] Abs (test code=AMONO) 1.4 K/cumm 0.0-1.2 Eos Abs (test code=AEOS) 0.25 K/cumm 0.00-0.74 Baso Abs (test code=ABASO) 0.1 K/cumm 0.00-0.21
[2018-12-29] MEDS ORDERED: D5 0.45 NS 1,000 ML IV ONE (15:12)
[2018-12-29 15:16] LABS: Absolute Lymphocytes (CBC) 23.7 K/uL (0.7-4.9); Eosinophils % 0.3 % (0-4.4); Hematocrit 25.1 % (39.6-49.0); Lymphocytes % 96.9 % (15.3-44.8); MPV 9.7 fL (7.6-11.3); Monocytes % 0.9 % (3.3-12.3); RBC Red Blood Cell Count 2.57 M/uL (4.33-5.43)
[2018-12-29 15:28] LABS: Potassium 4.4 mmol/L (3.5-5.1)
--- NOTE | 2018-12-29 15:45 | EDPHYS ---
Physician Documentation [facility] Name: Bhavesh Mary Jr Age: 73 yrs Sex: Male : 1945 Arrival Date: 12/29/2018 Time: 14:25 Bed 14 Private MD: ED Physician Rubio Robledo HPI: 12/29 15:52 This 73 yrs old Male presents to ER via Ambulatory with complaints of Abnormal kdr Lab Results. 15:52 The patient has been intermittently lightheaded for some weeks. He was sent for a CBC kdr today and his Hgb was noted to be 7.[address] Maldonado asked that he go to the ED. He has no acute or new aspect to his feeling or presentation. Onset: The symptoms/episode began/occurred at an unknown time. Severity of symptoms: At their worst the symptoms were very mild in the emergency department the symptoms are unchanged. The patient has experienced similar episodes in the past, several times. The patient has been recently seen by a physician: the patient's primary care provider. Historical: - Allergies: 14:32 No Known Allergies; aa5 - PMHx: 14:32 chronic lymphocytic leukemia; Diabetes - IDDM; Hypertension; aa5 - Immunization history:: Adult Immunizations unknown. - Social history:: Smoking status: Patient/guardian denies using tobacco. - Ebola Screening: : No symptoms or risks identified at this time. ROS: 15:52 Constitutional: Negative for fever, chills, and weight loss, Eyes: Negative for injury, kdr pain, redness, and discharge, ENT: Negative for injury, pain, and discharge, Neck: Negative for injury, pain, and swelling, Cardiovascular: Negative for chest pain, palpitations, and edema, Respiratory: Negative for shortness of breath, cough, wheezing, and pleuritic chest pain, Abdomen/GI: Negative for abdominal pain, nausea, vomiting, diarrhea, and constipation, Back: Negative for injury and pain, : Negative for injury, bleeding, discharge, and swelling, MS/Extremity: Negative for injury and deformity, Skin: Negative for injury, rash, and discoloration, Psych: Negative for depression, anxiety, suicide ideation, homicidal ideation, and hallucinations, Allergy/Immunology: Negative for hives, rash, and allergies, Endocrine: Negative for neck swelling, polydipsia, polyuria, polyphagia, and marked weight changes, Hematologic/Lymphatic: Negative for swollen nodes, abnormal bleeding, and unusual bruising. 15:52 Neuro: Positive for Light headed - for lack of a better description. Exam: 15:52 Constitutional: This is a well developed, well nourished patient who is awake, alert, kdr and in no acute distress. Head/Face: Normocephalic, atraumatic. Eyes: Pupils equal round and reactive to light, extra-ocular motions intact. Lids and lashes normal. Conjunctiva and sclera are non-icteric and not injected. Cornea within normal limits. Periorbital areas with no swelling, redness, or edema. Neck: Trachea midline, no thyromegaly or masses palpated, and no cervical lymphadenopathy. Supple, full range of motion without nuchal rigidity, or vertebral point tenderness. No Meningismus. Chest/axilla: Normal chest wall appearance and motion. Nontender with no deformity. No lesions are appreciated. Cardiovascular: Regular rate and rhythm with a normal S1 and S2. No gallops, murmurs, or rubs. Normal PMI, no JVD. No pulse deficits. Respiratory: Lungs have equal breath sounds bilaterally, clear to auscultation and percussion. No rales, rhonchi or wheezes noted. No increased work of breathing, no retractions or nasal flaring. Abdomen/GI: Soft, non-tender, with normal bowel sounds. No distension or tympany. No guarding or rebound. No evidence of tenderness throughout. Back: No spinal tenderness. No costovertebral tenderness. Full range of motion. Skin: Warm, dry with normal turgor. Normal color with no rashes, no lesions, and no evidence of cellulitis. MS/ Extremity: Pulses equal, no cyanosis. Neurovascular intact. Full, normal range of motion. Neuro: Awake and alert, GCS 15, oriented to person, place, time, and situation. Cranial nerves II-XII grossly intact. Motor strength 5/5 in all extremities. Sensory grossly intact. Cerebellar exam normal. Normal gait. Psych: Awake, alert, with orientation to person, place and time. Behavior, mood, and affect are within normal limits. Vital Signs: 14:32 BP 130 / 60; Pulse 78; Resp 18 S; Temp 98.8(TE); Pulse Ox 99% on R/A; Weight 78.47 kg aa5 (M); Height 5 ft. 8 in. (172.72 cm); Pain 0/10; 15:55 BP 128 / 58; Pulse 75; Resp 18; Pulse Ox 100% on R/A; hj 14:32 Body Mass Index 26.30 (78.47 kg, 172.72 cm) aa5 MDM: 15:43 ED course: Spoke with Dr. Janessa Adrian d/c and he will contact office for repeat CBC on [facility] Saturday next. 15:44 Patient medically screened. [facility] 15:56 Data reviewed: vital signs, nurses notes, lab test result(s). Counseling: I had a kdr detailed discussion with the patient and/or guardian regarding: the historical points, exam findings, and any diagnostic results supporting the discharge/admit diagnosis, lab results, the need for outpatient follow up. 12/29 14:37 Order name: CBC with Diff kdr 12/29 14:37 Order name: Chem 7; Complete Time: 15:31 kdr 12/29 14:37 Order name: Type And Screen [facility] 12/29 15:53 Order name: CBC Smear Scan EDNM Administered Medications: No medications were administered Disposition: 12/29/18 15:44 Discharged to Home. Impression: Anemia: chronic; CLL. - Condition is Stable. - Discharge Instructions: Anemia, Nonspecific, Aplastic Anemia. - Medication Reconciliation Form, Thank You Letter form. - Follow up: Private Physician; When: 2 - 3 days; Reason: If symptoms return, Further diagnostic work-up, Recheck today's complaints, Continuance of care, Re-evaluation by your physician. - Problem is an ongoing problem. - Symptoms are unchanged. - Notes: Follow-up with Dr. Riddle's office for a possible repeat CBC on Saturday Signatures: Dispatcher [employer] [facility] Rubio Robledo MD MD [facility] Velvet Christina RN RN aa5 Juan Taylor RN RN hj Corrections: (The following items were deleted from the chart) 15:53 15:27 Manual Differential ordered. [facility] 15:59 15:44 12/29/2018 15:44 Discharged to Home. Impression: Anemia: chronic; CLL. Condition hj is Stable. Forms are Medication Reconciliation Form, Thank You Letter, Antibiotic Education, Prescription Opioid Use. Follow up: Private Physician; When: 2 - 3 days; Reason: If symptoms return, Further diagnostic work-up, Recheck today's complaints, Continuance of care, Re-evaluation by your physician. Problem is an ongoing problem. Symptoms are unchanged. kdr
--- NOTE | 2018-12-29 15:45 | ER ---
Nurse's Notes [facility] Name: Bhavesh Mary Jr Age: 73 yrs Sex: Male : 1945 Arrival Date: 12/29/2018 Time: 14:25 Bed 14 Private MD: Diagnosis: Anemia: chronic; CLL Presentation: 12/29 14:30 Presenting complaint: Patient states: "I got a blood transfusion 2 weeks ago and the aa5 doctor thinks I need another one". Pt reports labs today: Hemoglobin 7.6 and Hematocrit 22.2. Pt reports feeling weak and lightheaded. Transition of care: patient was not received from another setting of care. Onset of symptoms was December 29, 2018. Risk Assessment: Do you want to hurt yourself or someone else? Patient reports no desire to harm self or others. Initial Sepsis Screen: Does the patient meet any 2 criteria? No. Patient's initial sepsis screen is negative. Does the patient have a suspected source of infection? No. Patient's initial sepsis screen is negative. Care prior to arrival: None. 14:30 Method Of Arrival: Ambulatory aa5 14:30 Acuity: ALTON 3 aa5 Triage Assessment: 14:40 General: Appears in no apparent distress. uncomfortable, Behavior is calm, cooperative, hj appropriate for age. Pain: Denies pain. Historical: - Allergies: 14:32 No Known Allergies; aa5 - PMHx: 14:32 chronic lymphocytic leukemia; Diabetes - IDDM; Hypertension; aa5 - Immunization history:: Adult Immunizations unknown. - Social history:: Smoking status: Patient/guardian denies using tobacco. - Ebola Screening: : No symptoms or risks identified at this time. Screenin:40 Abuse screen: Denies threats or abuse. Denies injuries from another. Nutritional hj screening: No deficits noted. Tuberculosis screening: No symptoms or risk factors identified. Fall Risk None identified. Assessment: 14:45 General: Appears in no apparent distress. uncomfortable, Behavior is calm, cooperative, hj appropriate for age. Pain: Denies pain. Neuro: Level of Consciousness is awake, alert, obeys commands, Oriented to person, place, time, situation, Appropriate for age. Cardiovascular: Capillary refill < 3 seconds Patient's skin is warm and dry. Respiratory: Airway is patent Respiratory effort is even, unlabored, Respiratory pattern is regular, symmetrical. GI: No signs and/or symptoms were reported involving the gastrointestinal system. : No signs and/or symptoms were reported regarding the genitourinary system. EENT: No signs and/or symptoms were reported regarding the EENT system. Derm: No signs and/or symptoms reported regarding the dermatologic system. Musculoskeletal: No signs and/or symptoms reported regarding the musculoskeletal system. Vital Signs: 14:32 BP 130 / 60; Pulse 78; Resp 18 S; Temp 98.8(TE); Pulse Ox 99% on R/A; Weight 78.47 kg aa5 (M); Height 5 ft. 8 in. (172.72 cm); Pain 0/10; 15:55 BP 128 / 58; Pulse 75; Resp 18; Pulse Ox 100% on R/A; hj 14:32 Body Mass Index 26.30 (78.47 kg, 172.72 cm) aa5 ED Course: 14:25 Patient arrived in ED. rg4 14:30 Arm band placed on. aa5 14:32 Triage completed. aa5 14:34 Juan Taylor, RN is Primary Nurse. hj 14:37 Rubio Robledo MD is Attending Physician. kdr 14:41 Patient has correct armband on for positive identification. Placed in gown. Bed in low hj position. Call light in reach. Side rails up X 1. Adult w/ patient. 14:45 Inserted saline lock: 20 gauge in left antecubital area, using aseptic technique. Blood hj collected. 14:45 Initial lab(s) drawn, by me, sent to lab. First set of blood cultures drawn by me. hj 15:59 No provider procedures requiring assistance completed. IV discontinued, intact, hj bleeding controlled, No redness/swelling at site. Pressure dressing applied. Administered Medications: No medications were administered Outcome: 15:44 Discharge ordered by . kdr 15:59 Discharged to home ambulatory, with family. hj 15:59 Condition: stable 15:59 Discharge instructions given to patient, family, Instructed on discharge instructions, follow up and referral plans. Demonstrated understanding of instructions, follow-up care. 15:59 Patient left the ED. hj Signatures: Rubio Robledo MD MD kdr Calderon, Audri RN RN aa Brandon, Jaun, RN RN hj Hal, Debra rg4
[2018-12-29 15:51] LABS: Blood Morphology Comment NOT SEEN (NOT SEEN); Platelet Estimate DECR; Urine White Blood Cell Casts OK
[2018-12-29 17:13] VITALS: BP 130/60; TEMP 98.8; O2SAT 99
== END 2018-12-29 15:59 | disposition home or self-care (01) ==
LOC: ER 14:22
DX: C91.10 Chronic lymphocytic leukemia of B-cell type not having achieved remission (principal); D63.8 Anemia in other chronic diseases classified elsewhere; I10 Essential (primary) hypertension
CPT/HCPCS: 36415; 80048; 85025; 86850; 86900; 86901; 99283

== ENCOUNTER 2019-01-02 07:22 | Day surgery (SDC) | payer OTHER ==
--- OUTSIDE RECORDS SUMMARY | 2019-01-02 07:25 | XMS REPORT ---
:1945 [facility] Address [address] [place] [address] [address]. [address] [place] [address] Care Team Providers Name Role Phone CLINT [...] Department ID 2017-08-19 2017-08-19 Outpatient C [facility] MED [id number] 15:42:00 15:42:00 CLINT Results Test Description Test Time Test Comments Text Results Atomic Results Result Comments Lipid Profile 2017-08-20 21:28:00 Test Item Value Reference Range Comments Cholesterol (test code=CHOL) 160 mg/dL 0-200 Triglycerides (test code=TRIG) 157 mg/dL 9-200 HDL (test code=HDL) 30 mg/dL 40-60 Chol/HDL (test code=CHOLPHDL) 5.3 Ratio 0.0-5.0 LDL, Calculated (test 99 0-130 (NOTE)RISK OF HEART DISEASEPublished code=LDLC) by [place] Heart AssociationAnalyte Optimal Boderline Increased RiskCHOL <200 200-239 >240TRIG <150 150-199 >200HDL Male: >60 <40HDL Female: >60 <50LDL <100 130-159 >160LDL NEAR OPTIMAL IS 100-129 VLDL (test code=VLDL) 31 mg/dL 5-40 LDL/HDL (test code=LDLPHDL) 3 Lipid [id number] 21:39:00 Test Item Value Reference Range Comments Cholesterol (test 102 mg/dL 0-200 code=CHOL) Triglycerides (test 220 mg/dL 9-200 code=TRIG) HDL (test code=HDL) 20 mg/dL 40-60 Chol/HDL (test 5.1 Ratio 0.0-5.0 code=CHOLPHDL) LDL, Calculated (test 38 0-130 (NOTE)RISK OF HEART code=LDLC) DISEASEPublished by [place] Heart AssociationAnalyte Optimal Boderline Increased RiskCHOL <200 200-239 >240TRIG <150 150-199 >200HDL Male: >60 <40HDL Female: >60 <50LDL <100 130-159 >160LDL NEAR OPTIMAL IS 100-129 VLDL (test code=VLDL) 44 mg/dL 5-40 LDL/HDL (test code=LDLPHDL) 2 Comprehensive Metabolic [id number] 21:39:00 Test Item Value Reference Range Comments [...] race is not provided, and the patient isAfrican-Brazilian, multiply by 1.212. If sex is not provided, and thepatient is female, multiply by 0.742. Results for patients <18 years ofage have not been validated by the MDRD study and should be interpretedwith caution.eGFR Result Interpretation:eGFR > or=60 is in the Normal RangeeGFR < 60 may mean kidney diseaseeGFR < 15 may mean kidney failureRanges recommended by the National Kidney Foundation,http://nkdep.nih .gov Glycosylated [id number] 21:32:00 Test Item Value Reference Range Comments HBA1c (test code=HBA1C) 7.8 % 4.8-5.9 CBC with [id number] 20:41:00 Test Item Value Reference Range Comments [...] Lymph Abs (test code=ALYMPH) 7.5 K/cumm 0.5-4.6 [place] Abs (test code=AMONO) 1.4 K/cumm 0.0-1.2 Eos Abs (test code=AEOS) 0.25 K/cumm 0.00-0.74 Baso Abs (test code=ABASO) 0.1 K/cumm 0.00-0.21
[2019-01-02] MEDS ORDERED: NA CHLORIDE 0.9% 500 ML ONE ×2 (08:16→10:49)
[2019-01-02 08:46] VITALS: O2SAT 97; BMI 26.3
[2019-01-02 13:28] VITALS: BP 140/45; TEMP 98.7
[2019-01-02 16:17] LABS: Hematocrit 29.2 % (39.6-49.0)
== END 2019-01-02 16:00 | disposition home or self-care (01) ==
LOC: DS 07:22
PROVIDERS: ATTEND Internal Medicine Medical Oncology
DX: D64.9 Anemia, unspecified (principal); C83.00 Small cell B-cell lymphoma, unspecified site; C91.10 Chronic lymphocytic leukemia of B-cell type not having achieved remission; C61 Malignant neoplasm of prostate; D72.829 Elevated white blood cell count, unspecified
CPT/HCPCS: 36415; 86900; 86850; 86901; 82962; 85018; 85014; 36430; P9016 ×2

== ENCOUNTER 2019-01-21 07:38 | Day surgery (SDC) | payer OTHER ==
[2019-01-20 15:26] LABS: Albumin 3.7 g/dL (3.4-5.0); Bilirubin Total 0.6 mg/dL (0.2-1.0); Potassium 5.1 mmol/L (3.5-5.1); Protein, Total 6.4 g/dL (6.4-8.2); Uric Acid 12.1 mg/dL (3.5-7.2)
--- OUTSIDE RECORDS SUMMARY | 2019-01-21 07:40 | XMS REPORT ---
:1945 [facility] Address [address] [place] [address] [address]. [address] [place] [address] Care Team Providers Name Role Phone CLINT [...] Department ID 2017-08-19 2017-08-19 Outpatient C [facility] MED [id number] 15:42:00 15:42:00 CLINT Results Test Description Test Time Test Comments Text Results Atomic Results Result Comments Lipid Profile 2017-08-20 21:28:00 Test Item Value Reference Range Comments Cholesterol (test code=CHOL) 160 mg/dL 0-200 Triglycerides (test code=TRIG) 157 mg/dL 9-200 HDL (test code=HDL) 30 mg/dL 40-60 Chol/HDL (test code=CHOLPHDL) 5.3 Ratio 0.0-5.0 LDL, Calculated (test 99 0-130 (NOTE)RISK OF HEART DISEASEPublished code=LDLC) by [place] Heart AssociationAnalyte Optimal Boderline Increased RiskCHOL <200 200-239 >240TRIG <150 150-199 >200HDL Male: >60 <40HDL Female: >60 <50LDL <100 130-159 >160LDL NEAR OPTIMAL IS 100-129 VLDL (test code=VLDL) 31 mg/dL 5-40 LDL/HDL (test code=LDLPHDL) 3 Lipid [id number] 21:39:00 Test Item Value Reference Range Comments Cholesterol (test 102 mg/dL 0-200 code=CHOL) Triglycerides (test 220 mg/dL 9-200 code=TRIG) HDL (test code=HDL) 20 mg/dL 40-60 Chol/HDL (test 5.1 Ratio 0.0-5.0 code=CHOLPHDL) LDL, Calculated (test 38 0-130 (NOTE)RISK OF HEART code=LDLC) DISEASEPublished by [place] Heart AssociationAnalyte Optimal Boderline Increased RiskCHOL <200 200-239 >240TRIG <150 150-199 >200HDL Male: >60 <40HDL Female: >60 <50LDL <100 130-159 >160LDL NEAR OPTIMAL IS 100-129 VLDL (test code=VLDL) 44 mg/dL 5-40 LDL/HDL (test code=LDLPHDL) 2 Comprehensive Metabolic [id number] 21:39:00 Test Item Value Reference Range Comments [...] race is not provided, and the patient isAfrican-Serbian, multiply by 1.212. If sex is not provided, and thepatient is female, multiply by 0.742. Results for patients <18 years ofage have not been validated by the MDRD study and should be interpretedwith caution.eGFR Result Interpretation:eGFR > or=60 is in the Normal RangeeGFR < 60 may mean kidney diseaseeGFR < 15 may mean kidney failureRanges recommended by the National Kidney Foundation,http://nkdep.nih .gov Glycosylated [id number] 21:32:00 Test Item Value Reference Range Comments HBA1c (test code=HBA1C) 7.8 % 4.8-5.9 CBC with [id number] 20:41:00 Test Item Value Reference Range Comments [...] Lymph Abs (test code=ALYMPH) 7.5 K/cumm 0.5-4.6 [place] Abs (test code=AMONO) 1.4 K/cumm 0.0-1.2 Eos Abs (test code=AEOS) 0.25 K/cumm 0.00-0.74 Baso Abs (test code=ABASO) 0.1 K/cumm 0.00-0.21
[2019-01-21] MEDS ORDERED: NA CHLORIDE 0.9% 500 ML ONE (08:09)
[2019-01-21 09:01] VITALS: BMI 26.3
[2019-01-21] MEDS ORDERED: NA CHLORIDE 0.9% 250 ML ONE ×2 (10:19→13:25)
[2019-01-21 14:24] VITALS: O2SAT 100
[2019-01-21 14:59] LABS: Hematocrit 24.9 % (39.6-49.0)
[2019-01-21 15:01] VITALS: BP 166/50; TEMP 97.9
[2019-01-21 15:49] LABS: Platelet Estimate DECR
== END 2019-01-21 14:57 | disposition home or self-care (01) ==
LOC: DS 07:38
PROVIDERS: ATTEND Internal Medicine Medical Oncology
DX: D64.81 Anemia due to antineoplastic chemotherapy (principal); D69.59 Other secondary thrombocytopenia; C91.10 Chronic lymphocytic leukemia of B-cell type not having achieved remission
CPT/HCPCS: 36415 ×2; 86900; 86850; 83615; 85049; 86901; 82962; 84550; 85018; 85014; 80053; 36430; P9035; P9016 ×2

== ENCOUNTER 2019-01-27 07:20 | Day surgery (SDC) | payer OTHER ==
--- OUTSIDE RECORDS SUMMARY | 2019-01-27 07:45 | XMS REPORT ---
:1945 [facility] [address] [place] [address] [address]. [address] [place] [address] Care Team Providers Name Role Phone CLINT [...] Department ID 2017-08-19 2017-08-19 Outpatient C [facility] MED [id number] 15:42:00 15:42:00 CLINT Results Test Description Test Time Test Comments Text Results Atomic Results Result Comments Lipid Profile 2017-08-20 21:28:00 Test Item Value Reference Range Comments Cholesterol (test code=CHOL) 160 mg/dL 0-200 Triglycerides (test code=TRIG) 157 mg/dL 9-200 HDL (test code=HDL) 30 mg/dL 40-60 Chol/HDL (test code=CHOLPHDL) 5.3 Ratio 0.0-5.0 LDL, Calculated (test 99 0-130 (NOTE)RISK OF HEART DISEASEPublished code=LDLC) by [place] Heart AssociationAnalyte Optimal Boderline Increased RiskCHOL <200 200-239 >240TRIG <150 150-199 >200HDL Male: >60 <40HDL Female: >60 <50LDL <100 130-159 >160LDL NEAR OPTIMAL IS 100-129 VLDL (test code=VLDL) 31 mg/dL 5-40 LDL/HDL (test code=LDLPHDL) 3 Lipid [id number] 21:39:00 Test Item Value Reference Range Comments Cholesterol (test 102 mg/dL 0-200 code=CHOL) Triglycerides (test 220 mg/dL 9-200 code=TRIG) HDL (test code=HDL) 20 mg/dL 40-60 Chol/HDL (test 5.1 Ratio 0.0-5.0 code=CHOLPHDL) LDL, Calculated (test 38 0-130 (NOTE)RISK OF HEART code=LDLC) DISEASEPublished by Lao Heart AssociationAnalyte Optimal Boderline Increased RiskCHOL <200 200-239 >240TRIG <150 150-199 >200HDL Male: >60 <40HDL Female: >60 <50LDL <100 130-159 >160LDL NEAR OPTIMAL IS 100-129 VLDL (test code=VLDL) 44 mg/dL 5-40 LDL/HDL (test code=LDLPHDL) 2 Comprehensive Metabolic [id number] 21:39:00 Test Item Value Reference Range Comments [...] race is not provided, and the patient isAfrican-Lao, multiply by 1.212. If sex is not provided, and thepatient is female, multiply by 0.742. Results for patients <18 years ofage have not been validated by the MDRD study and should be interpretedwith caution.eGFR Result Interpretation:eGFR > or=60 is in the Normal RangeeGFR < 60 may mean kidney diseaseeGFR < 15 may mean kidney failureRanges recommended by the National Kidney Foundation,http://nkdep.nih .gov Glycosylated [id number] 21:32:00 Test Item Value Reference Range Comments HBA1c (test code=HBA1C) 7.8 % 4.8-5.9 CBC with [id number] 20:41:00 Test Item Value Reference Range Comments [...] Lymph Abs (test code=ALYMPH) 7.5 K/cumm 0.5-4.6 [place] Abs (test code=AMONO) 1.4 K/cumm 0.0-1.2 Eos Abs (test code=AEOS) 0.25 K/cumm 0.00-0.74 Baso Abs (test code=ABASO) 0.1 K/cumm 0.00-0.21
[2019-01-27] MEDS ORDERED: NA CHLORIDE 0.9% 250 ML ONE ×2 (09:08→11:18)
[2019-01-27 09:43] LABS: Potassium 4.8 mmol/L (3.5-5.1)
[2019-01-27 14:35] VITALS: O2SAT 100; BMI 26.3
[2019-01-27 14:37] VITALS: BP 129/44; TEMP 98.5
== END 2019-01-27 15:30 | disposition home or self-care (01) ==
LOC: DS 07:20
PROVIDERS: ATTEND Internal Medicine Medical Oncology
DX: D63.0 Anemia in neoplastic disease (principal); C91.10 Chronic lymphocytic leukemia of B-cell type not having achieved remission
CPT/HCPCS: 80048; 36415; 86900; 86850; 86901; 85018; 85014; 36430; P9016 ×2

== ENCOUNTER 2019-06-10 21:29 | Inpatient (IN) | payer OTHER ==
--- OUTSIDE RECORDS SUMMARY | 2019-06-11 03:10 | XMS REPORT ---
:1945 [facility] Address [address] [place] [address] Dr. [address] [place] [id number] Care Team Providers Name Role Phone CLINT [...] Department ID 2017-08-19 2017-08-19 Outpatient C [facility] [id number] 15:42:00 15:42:00 CLINT Results Test Description Test Time Test Comments Text Results Atomic Results Result Comments Lipid Profile 2017-08-20 21:28:00 Test Item Value Reference Range Comments Cholesterol (test code=CHOL) 160 mg/dL 0-200 Triglycerides (test code=TRIG) 157 mg/dL 9-200 HDL (test code=HDL) 30 mg/dL 40-60 Chol/HDL (test code=CHOLPHDL) 5.3 Ratio 0.0-5.0 LDL, Calculated (test 99 0-130 (NOTE)RISK OF HEART DISEASEPublished code=LDLC) by [place]mese Heart AssociationAnalyte Optimal Boderline Increased RiskCHOL <200 200-239 >240TRIG <150 150-199 >200HDL Male: >60 <40HDL Female: >60 <50LDL <100 130-159 >160LDL NEAR OPTIMAL IS 100-129 VLDL (test code=VLDL) 31 mg/dL 5-40 LDL/HDL (test code=LDLPHDL) 3 Lipid [id number] 21:39:00 Test Item Value Reference Range Comments Cholesterol (test 102 mg/dL 0-200 code=CHOL) Triglycerides (test 220 mg/dL 9-200 code=TRIG) HDL (test code=HDL) 20 mg/dL 40-60 Chol/HDL (test 5.1 Ratio 0.0-5.0 code=CHOLPHDL) LDL, Calculated (test 38 0-130 (NOTE)RISK OF HEART code=LDLC) DISEASEPublished by Burmese Heart AssociationAnalyte Optimal Boderline Increased RiskCHOL <200 200-239 >240TRIG <150 150-199 >200HDL Male: >60 <40HDL Female: >60 <50LDL <100 130-159 >160LDL NEAR OPTIMAL IS 100-129 VLDL (test code=VLDL) 44 mg/dL 5-40 LDL/HDL (test code=LDLPHDL) 2 Comprehensive Metabolic [id number] 21:39:00 Test Item Value Reference Range Comments [...] race is not provided, and the patient isAfrican-Burmese, multiply by 1.212. If sex is not provided, and thepatient is female, multiply by 0.742. Results for patients <18 years ofage have not been validated by the MDRD study and should be interpretedwith caution.eGFR Result Interpretation:eGFR > or=60 is in the Normal RangeeGFR < 60 may mean kidney diseaseeGFR < 15 may mean kidney failureRanges recommended by the National Kidney Foundation,http://nkdep.nih .gov Glycosylated [id number] 21:32:00 Test Item Value Reference Range Comments HBA1c (test code=HBA1C) 7.8 % 4.8-5.9 CBC with [id number] 20:41:00 Test Item Value Reference Range Comments [...] Lymph Abs (test code=ALYMPH) 7.5 K/cumm 0.5-4.6 [place] Abs (test code=AMONO) 1.4 K/cumm 0.0-1.2 Eos Abs (test code=AEOS) 0.25 K/cumm 0.00-0.74 Baso Abs (test code=ABASO) 0.1 K/cumm 0.00-0.21
--- OUTSIDE RECORDS SUMMARY | 2019-06-11 03:12 | XMS REPORT | Continuity of Care Document ---
:1945 Author Organization [facility] Address [address] [place] [address] Allergies, Adverse Reactions, Alerts No known allergies. Medications Medication Status Dose Units Route Sig Qty Days Start Date End Date Instructions Acetamin/Codeine 300/30 Discontinued 1 ORAL Every 4 Hours August 15, 2018 Mg * As Needed as 3:49pm (One-Time) needed for Acetaminophen W/ Codeine Discontinued 1-2 ORAL Every 4-6 60 October Hours As 1:53pm (One-Time) Needed as needed for Pain Aspirin Active ORAL Once Daily Atorvastatin Active 10 ORAL Once Daily 30 30 Calcium At Bedtime Bacitracin Discontinued 1 TOPICAL Twice A Day 60 August apply to (Topical) for , affected Infection 2018 2018 area(s) 3:49pm Clopidogrel Active 75 ORAL Daily Bisulfate Detemir Active 45 SUBCUTANEOUS Every Insulin * Morning- Insulin Gabapentin Active 300 ORAL Twice A Day Insulin Active 35 SUBCUTANEOUS Once Daily Detemir At Bedtime Lisinopril Active ORAL Once Daily Metoprolol Active 100 ORAL Daily Succinate Ranolazine Active 500 ORAL Twice A Day Sitagliptin Active 50 ORAL Daily Phosphate Tramadol Hcl Discontinued 1-2 ORAL Every 4-6 Hours As 60 October 25, 2015 1:53pm Needed as needed (One-Time) for Pain Amlodipine Discontinued 2.5 ORAL Daily August 192013 Clindamycin Hcl Discontinued 300 ORAL Every 6 Hours 28 7 August 15April for Infection 2019 3:49pm 2018 Clopidogrel Discontinued 75 ORAL Daily November Bisulfate 2014 Doxycycline Discontinued 100 ORAL Every 12 14 7 March Hyclate Hours for 2018 Infection 6:17pm Furosemide Discontinued 20 ORAL Every Other 15 30 April Day 2018 Gabapentin Discontinued 300 ORAL Twice A Day February 17, 2019 Glipizide Discontinued 2.5 ORAL Twice A Day May 09, 2015 Isosorbide Discontinued ORAL Once Daily April Mononitrate 2014 Metformin Hcl Discontinued 1000 ORAL Twice A Day May 09, 2015 Metoprolol Discontinued 50 ORAL Daily April Tartrate 2014 Rosuvastatin Discontinued 20 ORAL Daily April Calcium 2018 Rosuvastatin Discontinued 40 ORAL Daily April Calcium 2014 Tamsulosin Hcl Discontinued 1 ORAL Once Daily April 20, 2019 Trimethoprim/Sul Discontinued 1 ORAL Twice A Day 14 7 August 15April famethoxazole for Infection 2018 3:49pm 2018 Problems Active Problems Medical Problem Onset Date Status Abdominal pain Active CLL (chronic lymphocytic leukemia) Active [id number] Active Lymphadenopathy, abdominal Active Osteoarthritis of right knee Active Osteoarthritis of right knee Active Right knee pain Active Symptomatic anemia Active UTI (urinary tract infection) Active Uncontrolled diabetes mellitus Active Total knee replacement status Active Inactive/Resolved Problems Medical Problem Onset Date Status Abrasion of leg, left Resolved Abscess Resolved Abscess of buttock, right Resolved Allergic rhinitis Resolved Anemia Resolved Anemia Resolved Balanitis Resolved CLL (chronic lymphocytic leukemia) Resolved Cellulitis and abscess of trunk Resolved Cellulitis of left leg Resolved Cellulitis of tragus of left ear Resolved Dizziness Resolved Encounter for wound re-check Resolved Fever Resolved Lira catheter in place Resolved HTN (hypertension) Resolved Hyperglycemia Resolved Hypoglycemia associated with diabetes Resolved Iron deficiency anemia Resolved Leukemia Resolved Pre-syncope Resolved Retention of urine Resolved Type II diabetes mellitus Resolved Upper respiratory infection Resolved Urinary retention Resolved Procedures Procedure Date Performed Status L HRT ARTERY/VENTRICLE ANGIO April 22, 2019 completed COMPLETE CBC W/AUTO DIFF WBC April 22, 2019 completed PROTHROMBIN TIME April 22, 2019 completed THROMBOPLASTIN TIME PARTIAL April 22, 2019 completed ROUTINE VENIPUNCTURE April 22, 2019 completed COMPREHEN METABOLIC PANEL April 22, 2019 completed X-RAY EXAM CHEST 2 VIEWS April 22, 2019 completed ELECTROCARDIOGRAM TRACING April 22, 2019 completed ASSAY GLUCOSE BLOOD QUANT April 22, 2019 completed ROUTINE VENIPUNCTURE April 22, 2019 completed April 22, 2019 completed CATHETER,TRANSLUMINAL ANGIOPLASTY April 22, 2019 completed COMPREHEN METABOLIC PANEL April 29, 2019 completed COMPLETE CBC W/AUTO DIFF WBC April 29, 2019 completed LACTATE (LD) (LDH) ENZYME April 29, 2019 completed ASSAY OF BLOOD/URIC ACID April 29, 2019 completed ROUTINE VENIPUNCTURE April 29, 2019 completed LIPID PANEL May 04, 2019 completed GLYCOSYLATED HEMOGLOBIN TEST May 04, 2019 completed ROUTINE VENIPUNCTURE May 04, 2019 completed ASSAY OF CALCIUM May 20, 2019 completed GLYCOSYLATED HEMOGLOBIN TEST May 20, 2019 completed METABOLIC PANEL TOTAL CA May 20, 2019 completed COMPLETE CBC W/AUTO DIFF WBC May 20, 2019 completed ASSAY OF MAGNESIUM May 20, 2019 completed ASSAY OF SERUM ALBUMIN May 20, 2019 completed ASSAY OF PHOSPHORUS May 20, 2019 completed ASSAY OF BLOOD/URIC ACID May 20, 2019 completed ROUTINE VENIPUNCTURE May 20, 2019 completed PROSTATE SCREENING May 20, 2019 completed X-ray of chest, two views April 20, 2019 completed X-ray of chest, single view June 09, 2019 completed X-ray of chest, single view June 10, 2019 completed Computed tomography of head without contrast June 10, 2019 completed Relevant Diagnostic Tests and/or Laboratory Data Laboratory Results Test Date/Time Result Interpretation Reference Result Comment Performing Range Site White Blood May 2.2 4.0-12.3 [facility], [address] Count 2018 6:40pm [place] [address] Red Blood May 3.66 3.80-5.80 [facility], 104 Count 2018 6:40pm [place] [address] Hemoglobin May 10.7 11.7-17.2 [facility], 104 2018 6:40pm [place] [address] Hematocrit Deangelo 34.6 35.0-51.0 [facility], 104 2018 6:40pm [place] [address] Mean May 94.5 83-100 [facility], 104 Corpuscular 2018 Volume 6:40pm [place] [address] Mean May 29.2 26.8-33.4 [facility], 104 Corpuscular 2018 Hemoglobin 6:40pm [place] [address] Mean May 30.9 30-35 [facility], 104 Corpuscular 2018 Hemoglobin 6:40pm [place] [address] Concent Red Cell May 13.5 12.0-14.0 [facility] [address] Distribution 2018 Width 6:40pm [place] [address] Platelet May 190 175-450 [facility], [address] Count 2018 6:40pm [place] [address] Absolute November 5.9 [facility], [address] [facility] Immature 2018 Platelet 11:35[place] [address] Fraction Immature April 3.9 0-8 [facility], [address] Platelet 2018 Fraction 11:35am [place] [address] Mean Deangelo 11.0 9.4-12.6 [facility], [address] Platelet 2018 Volume 6:40pm [place] [address] Neutrophils Deangelo 0.0 44.7-82.4 [facility] [address] (%) (Auto) 2018 6:40pm [place] [address] Immature Deangelo 0.0 0.0-0.4 [facility] [address] Granulocyte 2018 % (Auto) 6:40pm [place] [address] Lymphocytes Deangelo 77.6 10.0-50.0 [facility] [address] (%) (Auto) 2018 6:40pm [place] [address] Monocytes Deangelo 21.5 3.9-13.4 [facility] [address] (%) (Auto) 2018 6:40pm [place] [address] Eosinophils Deangelo 0 0.0-6.4 [facility] [address] (%) (Auto) 2018 6:40pm [place] [address] Basophils Deangelo 0.9 0.2-1.2 [facility] [address] (%) (Auto) 2018 6:40pm [place] [address] Neutrophils Deangelo 0.00 1.78-5.38 [facility] [address] # (Auto) 2018 6:40pm [place] [address] Absolute Deangelo 0.0 0.0-0.03 [facility] [address] Immature 2018 Granulocyte 6:40pm [place] [address] (auto Lymphocytes Deangelo 1.7 1.32-3.57 [facility] [address] # (Auto) 2018 6:40pm [place] [address] Monocytes # Deangelo 0.48 0.30-0.82 [facility] [address] (Auto) 2018 6:40pm [place] [address] Eosinophils Deangelo 0.00 0.04-0.54 [facility] [address] # (Auto) 2018 6:40pm [place] [address] Basophils # Deangelo 0.02 0.01-0.08 [facility] [address] (Auto) 2018 6:40pm [place] [address] Neutrophils April 5 37.0-80.0 [facility] [address] 2018 12:42pm [place] [address] Lymphocytes April 10-50 [facility] [address] (Manual) 2018 12:42pm [facility] [address] Monocytes April 3 0-12 [facility], [address] [facility] (Manual) 2018 12:42pm [facility] [address] Nucleated May 0 0-0.2 [facility], [address] [facility] Red Blood 2018 Cells % 6:40pm [facility] [address] Nucleated May 0 0 [facility], [address] [facility] Red Blood 2018 Cells # 6:40pm [facility] [address] Platelet April ADEQUATE ADEQUATE [facility], [address] [facility] Estimate 2018 12:42pm [place] [address] Abnormal April NORMAL NORMAL [facility], [address] [facility] Platelet 2018 Morphology 12:42pm [facility] [address] Hypochromasi April 17+ [facility], [address] [facility] a 2018 12:42pm [facility] [address] Macrocytosis April 17+ [facility], [address] [facility] 2018 12:42pm [facility] [address] Iron Level May 31 59-158 [facility], [address] [place] [address] 2018 9:05pm [facility] [address] Total Iron May 324 260-445 [facility], [address] [facility] Binding 2018 Capacity 9:05pm [facility] [address] Iron May 10 15-50 [facility], [address] [place] [address] Saturation 2018 9:05pm [facility] [address] Prothrombin May 11.8 10.3-12.3 THERAPEUTIC [facility], [address] [place] [address] Time 2018 LEVEL: 1.5 to 6:40pm 1.9 times [facility] [address] normal range of PT Prothromb May 1.10 Recommended [facility], [address] [place] [address] Time 2018 therapeutic Internationa 6:40pm range for [place] [id number] l Ratio patients receiving warfarin (coumadin) therapy: INR is 2.0 to 3.0Recommended range for patients with mechanical prosthetic heart valves: INR is 2.5 to 3.5 Activated May 41.4 22.5-37.0 [facility], [address] [place] [address] Partial 2018 Thromboplast 6:40pm [place] [id number] Time Urine Color May LT. YELLOW [facility], [address] [facility] 2018 6:50pm [facility] 33569 Urine May CLEAR CLEAR [facility], [address] [place] [address] Appearance 2018 6:50pm [place] [id number] Urine May 17+ (100 NEGATIVE [facility], [address] Glucose (UA) 2018 mg/dL) 6:50pm [facility] [address] Urine Deangelo NEGATIVE NEGATIVE [facility], [address] Bilirubin 2018 6:50pm [place] [address] Urine Deangelo NEGATIVE NEGATIVE [facility], [address] Ketones 2018 6:50pm [facility] 97897 Urine Deangeol 1.015 1.003-1.03 [facility], 104 Specific 2018 0 [place] 6:50pm [facility] 78995 Urine Blood Deangelo SMALL NEGATIVE [facility], 104 2018 6:50pm [place] [address] Urine pH Deangelo 5.500 5-9 [facility], 104 2018 6:50pm [place] [address] Urine Deangelo TRACE NEGATIVE [facility], [address] [facility] Protein 2018 6:50pm [facility] [address]47 Urine Deangelo 0.2 0.2-1.0 [facility], [address] Urobilinogen 2018 6:50pm [facility] [address] Urine Deangelo NEGATIVE NEGATIVE [facility], [address] [facility] [address] Nitrate 2018 6:50pm [place] [address] Urine Deangelo NEGATIVE NEGATIVE [facility], [address] [facility] Leukocyte 2018 Esterase 6:50pm [facility] [address]2628 Urine RBC Deangelo 0-3 0-5 [facility], 104 2018 6:50pm [facility] 38189 Urine WBC Deangelo 0-2 0-5 [facility], 104 2018 6:50pm [facility] [address] Urine Deangelo OCCASSIONAL 0-5 [facility], [address] [facility] Epithelial 2018 Cells 6:50pm [facility] 80707 Urine Deangelo TRACE None [facility], 104 Bacteria 2018 Detect 6:50pm [facility] [address]68[address] Urine Deangelo NO [facility], [address] [facility] Culture 2018 Reflexed 6:50pm [facility] 577[address] POC April 54 70 - 110 [facility], [address] [facility] [address] Capillary 2018 Blood 6:04am [facility] 32652 Glucose (Chem) Lactic Acid May 0.95 0.5-2.2 [facility], [address] [facility] Level 2018 6:40pm [facility] 359[address] Random Deangelo 149 82-115 [facility], [address] Glucose 2018 6:40pm [facility] 90007 Blood Urea May 32 8-23 [facility], [address] [facility] Nitrogen 2018 6:40pm [place] [address] Serum May 276 280-300 [facility], [address] [facility] Osmolality 2018 6:40pm [place] [address] Creatinine Deangelo 1.8 0.70-1.20 [facility], [address] [facility] 2018 6:40pm [place] [address] Glomerular Deangelo 36.97 GFR RESULTS ARE [facility], [address] [place] [address] Filtration 2018 REPORTED IN Rate Calc 6:40pm mL/min/1.73[place]2.[place] [address] ormal GFR: >60mL/minModera tely decreased GFR: 30-59 mL/minSeverely decreased GFR: 15-29 mL/minKidney Failure (or Dialysis): <15 mL/minThe calculated eGFR is not valid for patients younger than 18 years or older than 75 years. BUN/Creatini May 17.8 12-20 [facility], [address] [facility] ne Ratio 2018 6:40pm [facility] [address] Sodium Level May 133 135-145 [facility], [address] [place] [address] 2018 6:40pm [place] [address] Potassium Deangelo 4.8 3.5-5.2 [facility], [address] [place] [address] Level 2018 6:40pm [place] [address] Chloride May 95 98-108 [facility], [address] [facility] [address] Level 2018 6:40pm [place] [address] Carbon May 22 21-32 [facility], [address] [facility] Dioxide 2018 Level 6:40pm [place] [address] Anion Gap May 20.8 06-05 [facility], [address] [facility] 2018 6:40pm [place] [address] Uric Acid May 6.1 3.4-7.0 [facility], [address] [place] [address] 2018 8:55am [place] [address] Calcium Deangelo 9.2 8.8-10.2 [facility], [address] [place] [address] ST Level 2018 6:40pm [place] [address] Phosphorus Deangelo 4.0 2.5-4.5 [facility], [address] [place] [address] Level 2018 8:55am [place] [address] Magnesium Deangelo 2.2 1.6-2.4 [facility], [address] [place] [address] Level 2018 6:40pm [place] [address] Total Deangelo 7.1 6.6-8.7 [facility], [address] [place] [address] Protein 2018 6:40pm [facility] 94247 Albumin May 4.1 3.5-5.2 [facility], [address] [facility] 2018 6:40pm [facility] 65897 Globulin Deangelo 3.0 [facility], [address] [facility] 2018 6:40pm [facility] 65128 Albumin/Glob Deangel[facility] 1.4 >1.0 [facility] [address] [facility] ulin Ratio 2018 6:40pm [facility] 59063 Total Deangelo 0.5 0.0-1.2 [facility], [address] [facility] Bilirubin 2018 6:40pm [facility] 515[address] Direct Deangelo < 0.20 0.0-0.3 [facility], [address] [facility] Bilirubin 2018 9:05pm [facility] [address]336 Aspartate May 13 15-40 [facility], [address] [facility] Amino Transf 2018 (AST/SGOT) 6:40pm [facility] 35596 Alanine May 8 0-41 [facility], [address] [facility] Aminotransfe 2018 rase 6:40pm [facility] 91893 (ALT/SGPT) Lactate April 156 135-225 [facility], [address] [facility] Dehydrogenas 2018 e 11:35am [facility] 23853 Hemoglobin May 5.2 4.0-6.0 [facility], [address] [facility] A1c 2018 8:55am [facility] 65983 MM-Qsz-Q-Typ May 767 0-450 [facility], [address] [facility] e 2018 Natriuretic 6:40pm [facility] 21819 Peptide Prostate May 4.08 0.0-4.00 [facility], [address] [facility] Specific 2018 Antigen 8:55am [facility] 31417 Total Total May 72 40-130 [facility], [address] [facility] Alkaline 2018 Phosphatase 6:40pm [facility] 36190 Cholesterol April 90 150-200 [facility], [address] [facility] Level 2018 11:15am [facility] [address] Triglyceride April 75 <150 [facility], [address] [facility] s Level 2018 11:15am [facility] 88342 HDL April 40 >55 HDL EXPECTED [facility], [address] [facility] Cholesterol 2018 VALUES:FEMALES: 11:15am >65 mg/dL NO [facility] 28267 RISK 45-65 mg/dL MODERATE RISK <45 mg/dL HIGH RISKMALES: >55 mg/dL NO RISK 35-55 mg/dL MODERATE RISK <35 mg/dL HIGH RISK LDL April <100 LDL Expected [facility], [address] [place] [address] Cholesterol 2018 Values:Optimal 11:15am <100 mg/dLNear [place] [id number] optimal/above optimal 100-129 mg/dLBorderline high 130-159 mg/dLHigh 160-189 mg/dLVery high >190 mg/dL Coronary April 2.[address] Heart 2018 NATIONAL Disease Risk 11:15am CHOLESTEROL [place] [address] Ratio GUIDELINES [facility] ([facility]) guidelines for classificaton, testing and management of cholesterol levels in adults over 20 years of age. This new classification creates three categories of risk for coronary heart disease, regardless of age or sex, according to total and LDL cholesterols levels: Based on total cholesterol levelDesirable <200 mg/dlBorderline -high 200-239 mg/dlHigh >=240 mg/dl Based on cholesterol ratioCHD RISK CHOL/HDL RATIO ----- MALE FEMALE0.5 x Average 3.4 3.31.0 x Average 5.0 4.42.0 x Average 9.6 7.13.0 x Average 13.5 11.0 Ferritin Deangelo 45.4 30-[address] 2018 9:05pm [place] 974984 Ionized May 4.83 4.34-5.[address] Calcium 2018 8:50am [place] [address] Creatine May 45 20-[address] Kinase 2018 6:40pm [place] [address] Troponin I May < 0.30 0.0-0.[address] 2018 clinical 6:40pm studies have [place] [address] shown elevations of cTnI in patients with myocardial injury, as seen in unstable angina pectoris, cardiac contusions, and heart transplants. Elevations have also been seen in patients with rhabdomyolysis and polymyositis.El evated troponin levels point to myocardial injury, but are not necessarily indicative of an ischemic mechanism. The term AK should be used when there is evidence of cardiac damage, as detected by marker proteins in a clinical setting consistent with myocardial ischemia. If the clinical circumstance suggests that an ischemic mechanism is unlikely, other causes of cardiac injury should be considered.For diagnostic purposes, the results should always be assessed in conjunction with the patient's medical history, clinical examination and other findings. Creatine Deangelo < 1.0 0.0-3.6 DIAGNOSTIC [facility], [address] Kinase MB 2018 CITERIA: 6:40pm [facility] [place] [address] CK[facility] RELATIVE INDEX -----SUGGESTIVE OF NON-AMI < or=5 N/AGRAY ZONE (INCONCLUSIVE) > 5 < or=4SUGGESTIVE OF AMI >5 > 4 Microbiology Results Procedure Source Result Collection Result Result Performing Date/Time Date/Time Comment Site Blood Culture BLOOD SPECIMEN HAS June 10May [facility], [address] BEEN 2018 6:40pm 2018 RECEIVED IN 6:48pm [place] [address] LAB AND IS IN PROGRESS. Diagnostic Imaging Reports Report Dictated Date/Time Dictated By Status April 20, 2019 4:08pm Devon Penaloza MD completed Patient: BHAVESH MARY JR MR#: [id number] : 1945 Ordering DrGraciela: CLINT FONTAINE MD Pt Status : PRE [facility] Pt Location: [facility] Date/Time: 04/20/19 1231 Primary Care Physician: ELISABETH JOSEPH MD Technologist(s): JAN DAVIS Procedure(s): [id number] RAD/CHEST 2 VIEWS Signed CHEST 2 VIEWS 04/20/2019 12:31 PM HISTORY: Preoperative. COMPARISON(S): None available. FINDINGS: The lungs are adequately inflated and clear. There is no pneumothorax or pleural effusion. The cardiomediastinal silhouette and pulmonary vasculature are within normal limits. The bones and upper abdomen are unremarkable. IMPRESSION: No acute cardiopulmonary abnormality. Signed by: Devon Penaloza MD on 04/20/2019 4:08 PM Transcribed By: [employer] SIGNED <electronically signed by Devon Penaloza MD> [id number] Devon Penaloza MD April 22, 2019 4:43am CLINT FONTAINE MD completed Patient: BHAVESH MARY JR MR#: [id number] : 1945 Pt Location: [facility] Date/Time: 04/20/19 122 Primary Care Physician: ELISABETH JOSEPH MD Signed [facility] Test Date: 2019-04-19 Pat Name: BHAVESH MARY Department: Room: Gender: Male Activity Assistant: : 1945 Requested By: Braden FONTAINE Order Number: [id number] Reading MD: Verna Beck.A.A.C Measurements Intervals [place] Rate: 72 P: 68 AK: 167 QRS: 87 QRSD: 134 T: 31 QT: 391 QTc: 428 Interpretive Statements Sinus rhythm Right bundle branch block Electronically Signed On 04-22-2019 4:43:30 PROPERTY ECONOMIST by Clint Fontaine M.D. F.A.A.C Transcribed By: [employer] SIGNED <electronically signed by CLINT FONTAINE MD> 2 2 CLINT FONTAINE MD June 09, 2019 12:53am KD MORA MD completed Patient: BHAVESH MARY JR MR#: [id number] : [address] ADEEL TRUJILLO MD Pt Status: REG ER Pt Location: [facility] Date/Time: 06/09/19 0034 Primary Care Physician: ELISABETH JOSEPH MD Technologist(s): PAPITO DAVISON Procedure(s): [id number] RAD/CHEST 1 VIEW Signed Examination: Single AP view of the chest. COMPARISON: Chest 2 views 04/20/2019 INDICATION: Fever IMPRESSION: 1. Lines and Tubes: None 2. Lungs are grossly clear. No consolidation or effusion. 3. Cardiomediastinal silhouette is normal. Pulmonary vasculature is normal. 4. No acute bony abnormalities. Signed by: Dr. Kd Mora M.D. on 06/09/2019 12:53 AM Transcribed By: [employer] SIGNED <electronically signed by KD MORA MD> [id number] KD MORA MD Health Concerns No known health concerns documented Advance Directives Advance Directive Response Recorded Date/Time Advance Directives No October 24, 2015 1:56pm Advance Directive on File No June 10, 2019 5:26pm Directive to Physicians/Living Will No October 24, 2015 1:56pm Organ Donor No October 24, 2015 5:49am Medical Power of Space Buyer No October 24, 2015 5:49am Chief Complaint and Reason for Visit Chief Complaint Abdominal/GI/Nausea/Vomiting Reason for Visit [id number] Encounters Encounter Location(s) Arrival/Admit Date Discharge/Depart Date Provider(s) [facility]arted [place] June 10, [facility] 2018 5:22pm 1:45am [facility] Departed [place] June 08, June 09, [facility] 2019 8:01pm 3:06am [facility] Registered [place] May 20, 2019 NIKOS DUPREE [facility] 8:43am Ctr [facility] [place] [facility] [place] [facility] Registered [place] April 22, 2019 CLINT FONTAINE [facility] 5:34am MD Care Ctr Assessments No Assessments Information Available Functional Status No Functional Status information available Goals No Goals Information Available Immunizations No Immunization Information Available Mental Status No Mental Status Information Available Medical Equipment No Medical Equipment Information available Insurance Providers Guarantor Bhavesh Mary Jr Address [address] [place] [id number] Contact Info. Home Phone: Payer Policy Id Coverage Id Subscriber's Subscriber Id Effective Expiration Name Date Date Medicare [id number] Usman Briggs, [id number] Bhavesh Medicaid [id number] Usman Briggs, [id number] Bhavesh Plan of Treatment Future Tests Future scheduled test information is unavailable Pending Tests Test Name Date ordered Differential Comment April 20, 2019 12:42pm Future Visits Future appointment information is unavailable Referrals to Other Providers Reason for Referral Start Provider Provider Contact Provider Address Referral Date Information ELISABETH JOSEPH Work Phone: [address] [facility] [address] Future Procedures Future procedure information is unavailable Future Medications Future medication information is unavailable Patient Instructions Patient instructions are unavailable Social History Smoking Status Status Date of Observation Ex-smoker (finding) June 10, 2019 5:26pm Observation Status Observation Response Date of Response Hx Alcohol Use N - QUIT DRINKING 10 YEARS AGO April 20, 2019 12:10pm Hx Physical Abuse No June 10, 2019 5:26pm Assigned Sex Male Vital Signs Vital Reading Result Collection Date/Time
--- OUTSIDE RECORDS SUMMARY | 2019-06-11 03:12 | XMS REPORT | Continuity of Care Document ---
:1945 Author Organization [facility] Address [address] [place] [address] Allergies, Adverse Reactions, Alerts No known allergies. [...] pain Active CLL (chronic lymphocytic leukemia) Active [id number] Active Lymphadenopathy, abdominal Active Osteoarthritis of right knee Active Osteoarthritis of right knee Active Right knee pain Active Symptomatic anemia Active UTI (urinary tract infection) Active Uncontrolled diabetes mellitus Active Total knee replacement status Active Inactive/Resolved Problems Medical Problem Onset Date Status Abrasion of leg, left Resolved Abscess Resolved Abscess of buttock, right Resolved Allergic rhinitis Resolved Anemia Resolved Balanitis Resolved CLL (chronic lymphocytic leukemia) Resolved Cellulitis and abscess of trunk Resolved Cellulitis of left leg Resolved Cellulitis of tragus of left ear Resolved Encounter for wound re-check Resolved Lira catheter in place Resolved HTN (hypertension) Resolved Hyperglycemia Resolved Hypoglycemia associated with diabetes Resolved Iron deficiency anemia Resolved Retention of urine Resolved Type II [...] chest, single view June 09, 2019 completed Relevant Diagnostic Tests and/or Laboratory Data Laboratory Results Test Date/Time Result Interpretation Reference Result Comment Performing Range Site White Blood Deangelo 3.1 4.0-12.3 [facility], [address] [facility] Count 2018 9:05pm [place] [address] Red Blood Count May 3.45 3.80-5.80 [facility], [address] [facility] 2018 9:05pm [place] [address] Hemoglobin May 10.1 11.7-17.2 [facility], [address] [facility] 2018 9:05pm [place] [address] Hematocrit May 33.9 35.0-51.0 [facility], [address] [facility] 2018 9:05pm [place] [address] Mean May 98.3 83-100 [facility], [address] [facility] Corpuscular 2018 Volume 9:05pm [place] [address] Mean May 29.3 26.8-33.4 [facility], [address] [facility] Corpuscular 2018 Hemoglobin 9:05pm [place] [address] Mean May 29.8 30-35 [facility], [address] [facility] Corpuscular 2018 Hemoglobin 9:05pm [place] [address] Concent Red Cell May 13.4 12.0-14.0 [facility] [address] [facility] Distribution 2018 Width 9:05pm [place] [address] Platelet Count May 190 175-450 [facility], [address] [facility] 2018 9:05pm [place] [address] Absolute April 5.9 [facility], [address] [facility] Immature 2018 Platelet 11:35am [place] [address] Fraction Immature April 3.9 0-8 [facility], [address] [facility] Platelet 2018 Fraction 11:35am [place] [address] Mean Platelet May 11.1 9.4-12.6 [facility], [address] [facility] Volume 2018 9:05pm [place] [address] Neutrophils (%) Deangelo 1.3 44.7-82.4 [facility], [address] (Auto) 2018 9:05pm [place] [address] Immature Deangelo 0.0 0.0-0.4 [facility], [address] [facility] [address] [address] Granulocyte % 2018 (Auto) 9:05pm [place] [address] Lymphocytes (%) Deangelo 75.7 10.0-50.0 [facility], [address] (Auto) 2018 9:05pm [place] [address] Monocytes (%) Deangelo 21.6 3.9-13.4 [facility], [address] (Auto) 2018 9:05pm [place] [address] Eosinophils (%) Deangelo 0.7 0.0-6.4 [facility], [address] (Auto) 2018 9:05pm [place] [address] Basophils (%) Deangelo 0.7 0.2-1.2 [facility], [address] (Auto) 2018 9:05pm [place] [address] Neutrophils # Deangelo 0.04 1.78-5.38 [facility], [address] (Auto) 2018 9:05pm [place] [address] Absolute Deangelo 0.0 0.0-0.03 [facility], [address] Immature 2018 Granulocyte 9:05pm [place] [address] (auto Lymphocytes # Deangelo 2.3 1.32-3.57 [facility], [address] (Auto) 2018 9:05pm [place] [address] Monocytes # Deangelo 0.66 0.30-0.82 [facility], [address] (Auto) 2018 9:05pm [place] [address] Eosinophils # Deangelo 0.02 0.04-0.54 [facility], [address] (Auto) 2018 9:05pm [place] [address] Basophils # Deangelo 0.02 0.01-0.08 [facility], [address] (Auto) 2018 9:05pm [place] [address] Neutrophils April 21 37.0-80.0 [facility], [address] 2018 12:42pm [place] [address] Lymphocytes April 10-50 [facility] [address] [facility] (Manual) 2018 12:42pm [place] [address] Monocytes November 3 0-12 [facility], [address] [facility] (Manual) 2018 12:42pm [facility] [address] Nucleated Red May 0 0-0.2 [facility], [address] [facility] Blood Cells % 2018 9:05pm [facility] [address] Nucleated Red May 0 0 [facility], [address] [facility] Blood Cells # 2018 9:05pm [facility] [address] Platelet April ADEQUATE ADEQUATE [facility], [address] [facility] Estimate 2018 12:42pm [facility] [address] Abnormal April NORMAL NORMAL [facility], [address] [facility] Platelet 2018 Morphology 12:42pm [place] [id number] Hypochromasia April 17+ [facility], [address] [place] [address] 2018 12:42pm [facility] [address] Macrocytosis April 17+ [facility], [address] [facility] 2018 12:42pm [facility] [address] Iron Level June 16 59-158 [facility], [address] [facility] 2018 9:05pm [facility] [address] Total Iron May 324 260-445 [facility], [address] [facility] Binding 2018 Capacity 9:05pm [place] [id number] Iron Saturation May 26 15-50 [facility], [address] [facility] 2018 9:05pm [facility] [address] Prothrombin April 11.3 10.3-12.3 THERAPEUTIC [facility], [address] [place] [address] Time 2018 LEVEL: 1.5 to 12:42pm 1.9 times [place] [address] normal range of PT Prothromb Time April 1.05 Recommended [facility], [address] [facility] International 2018 therapeutic Ratio 12:42pm range for [place] [address] patients receiving warfarin (coumadin) therapy: INR is 2.0 to 3.0Recommended range for patients with mechanical prosthetic heart valves: INR is 2.5 to 3.5 Activated April 32.1 22.5-37.0 [facility], [address] [facility] Partial 2018 Thromboplast 12:42pm [place] [id number] Time Urine Color May YELLOW [facility], [address] [facility] 2018 12:50am [facility] [address] Urine May CLEAR CLEAR [facility], [address] [facility] Appearance 2018 12:50am [place] [id number] Urine Glucose May 2+ (250 NEGATIVE [facility], [address] [place] [address] (UA) 2018 mg/dL) 12:[address] [place], [place] [id number] Urine Bilirubin Deangelo NEGATIVE NEGATIVE [facility], 104 2018 12:[address] [place], [place] [id number] Urine Ketones Deangelo TRACE NEGATIVE [facility], 104 2018 12:[address] [place], [place] [id number] Urine Specific Deangelo 1.020 1.003-1.03 [facility], [address] [place] 2018 0 12:[address] [place] [address] Urine Blood Deangelo TRACE-INT NEGATIVE [facility], 104 2018 ACT 12:[address] [place], [place] [id number] Urine pH May 6.000 5-9 [facility], 104 2018 12:[address] [place] [address] Urine Protein May 1+ (30 NEGATIVE [facility], 104 2018 mg/dL) 12:[address] [place] [address] Urine Deangelo 1.0 0.2-1.0 [facility], Urobilinogen 2018 12:[address] [place], [place] [id number] Urine Nitrate Deangelo NEGATIVE NEGATIVE [facility], 104 2018 12:[address] [place], [place] [id number] Urine Leukocyte Deangelo NEGATIVE NEGATIVE [facility], [address] Esterase 2018 12:[address] [place], [place] [id number] Urine RBC May 6-10 0-5 [facility], 104 2018 12:[address] [place], [place] [id number] Urine WBC May 0-5 0-5 [facility], 104 2018 12:[address] [place], [place] [id number] Urine Deangelo 6-10 0-5 [facility], 104 Epithelial 2018 Cells 12:[address] [place], [place] [id number] Urine Bacteria May TRACE None [facility], 104 2018 Detect 12:[address] [place] [address] Urine Culture May NO [facility], 104 Reflexed 2018 12:[address] [place] [address] POC Capillary April 54 70 - 110 [facility], 104 Blood Glucose 2018 (Chem) 6:[place] [id number] Lactic Acid May 0.99 0.5-2.2 [facility], 104 Level 2018 12:50[place] [address] Random Glucose May 192 82-115 [facility], 104 2018 9:05pm [place] [address] Blood Urea June 10-23 [facility], [address] [facility] Nitrogen 2018 9:05pm [facility] [address] Serum May 284 280-300 [facility], [address] [facility] Osmolality 2018 9:05pm [facility] [address] Creatinine Deangelo 1.7 0.70-1.20 [facility], [address] [facility] 2018 9:05pm [facility] [address] Glomerular Deangelo 39.49 GFR RESULTS ARE [facility], [address] [place] [address] Filtration Rate 2018 REPORTED IN Calc 9:05pm mL/min/1.73m2.N [facility] [address] ormal GFR: >60mL/minModera tely decreased GFR: 30-59 mL/minSeverely decreased GFR: 15-29 mL/minKidney Failure (or Dialysis): <15 mL/minThe calculated eGFR is not valid for patients younger than 18 years or older than 75 years. BUN/Creatinine May 14.7 06-05 [facility], [address] [facility] Ratio 2018 9:05pm [facility] [address] Sodium Level May 137 135-145 [facility], [address] [facility] 2018 9:05pm [facility] [address] Potassium Level May 4.7 3.5-5.2 [facility], [address] [facility] 2018 9:05pm [facility] [address] Chloride Level May 100 98-108 [facility], [address] [facility] 2018 9:05pm [facility] [address] Carbon Dioxide May 22 21-32 [facility], [address] [place] [address] 2018 9:05pm [facility] [address] Anion Gap May 19.7 06-05 [facility], [address] [facility] 2018 9:05pm [facility] [address] Uric Acid May 6.1 3.4-7.0 [facility], [address] [place] [address] 2018 8:55am [facility] [address] Calcium Level May 8.6 8.8-10.2 [facility], [address] [place] [address] 2018 9:05pm [facility] [address] Phosphorus Deangelo 4.0 2.5-4.5 [facility], [address] [place] [address] 2018 8:55am [facility] [address] Magnesium Level May 2.2 1.6-2.4 [facility], [address] [place] [address] 2018 8:55am [facility] [address] Total Protein May 6.6 6.6-8.7 [facility], [address] [facility] 2018 9:05pm [facility] [address] Albumin Deangelo 4.0 3.5-5.2 [facility], [address] [facility] 2018 9:05[facility] [address] Globulin April 2.1 [facility], [address] [facility] 2018 11:35am [facility] [address] Albumin/Globuli April 2.0 >1.0 [facility], [address] [facility] n Ratio 2018 11:35am [facility] [address] Total Bilirubin May 0.3 0.0-1.2 [facility], [address] [facility] 2018 9:05pm [facility] [address] Direct Deangelo < 0.20 0.0-0.3 [facility], [address] [place] [address] Bilirubin 2018 9:05[facility] [address] Aspartate Amino May 11 15-40 [facility], [address] [facility] Transf 2018 (AST/SGOT) 9:05[facility] [address] Alanine May 8 0-41 [facility], [address] [facility] Aminotransferas 2018 e (ALT/SGPT) 9:05[facility] [address] Lactate April 156 135-225 [facility], [address] [place] [address] Dehydrogenase 2018 11:35am [facility] [address] Hemoglobin A1c May 5.2 4.0-6.0 [facility], [address] [place] [address] 2018 8:55[facility] [address] Prostate May 4.08 0.0-4.00 [facility], [address] [facility] Specific 2018 Antigen Total 8:55am [facility] [address] Total Alkaline May 89 40-130 [facility], [address] [facility] Phosphatase 2018 9:05[facility] [address] Cholesterol April 90 150-200 [facility], [address] [facility] Level 2018 11:15am [facility] [address] Triglycerides April 75 <150 [facility], [address] [facility] Level 2018 11:15am [facility] [address]63[address] HDL Cholesterol April 40 >55 HDL EXPECTED [facility] [address] [facility] 2018 VALUES:FEMALES: 11:15am >65 mg/dL NO [facility] [address] RISK 45-65 mg/dL MODERATE RISK <45 mg/dL HIGH RISKMALES: >55 mg/dL NO RISK 35-55 mg/dL MODERATE RISK <35 mg/dL HIGH RISK LDL Cholesterol April <100 LDL Expected [address] 2018 Values:Optimal 11:15am <100 mg/dLNear [facility] [address] optimal/above optimal 100-129 mg/dLBorderline high 130-159 mg/dLHigh 160-189 mg/dLVery high >190 mg/dL Coronary Heart April 2.[address] Disease Risk 2018 NATIONAL Ratio 11:15am CHOLESTEROL [place] [id number] [facility]EL[facility] [...] 9.6 7.13.0 x Average 13.5 11.0 Ferritin May 45.4 30-[address] 2018 9:05pm [place] [id number] Ionized Calcium May 4.83 4.34-5.[address] 2018 8:50am [place] [id number] Diagnostic Imaging Reports Report Dictated Date/Time Dictated By Status April 20, 2019 4:08pm Devon Penaloza MD completed Patient: BHAVESH MARY JR MR#: [id number] : 1945 Ordering DrGraciela: CLINT FONTAINE MD [place] [facility] [place] Location[place] [facility] Date/Time: 04/20/19 1231 Primary Care Physician: ELISABETH JOSEPH MD Technologist(s): JAN DAVIS Procedure(s): [id number] RAD/CHEST 2 VIEWS Signed CHEST 2 VIEWS 04/20/2019 12:31 PM HISTORY: Preoperative. COMPARISON(S): None available. FINDINGS: The lungs are adequately inflated and clear. There is no pneumothorax or pleural effusion. The cardiomediastinal silhouette and pulmonary vasculature are within normal limits. The bones and upper abdomen are unremarkable. IMPRESSION: No acute cardiopulmonary abnormality. 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 F.A.A.C Measurements Intervals [place] Rate: 72 P: 68 ID: [id number] QRS: 87 QRSD: 134 T: 31 QT: 391 QTc: 428 Interpretive Statements Sinus rhythm Right bundle branch block Electronically Signed On 04-22-2019 4:43:30 WATER RESOURCE ENGINEERING SPECIALIST by Clint Fontaine M.D. F.A.A.C Transcribed By: Avesthagen SIGNED <electronically signed by CLINT FONTAINE MD> [id number] CLINT FONTAINE MD Health Concerns No known health concerns documented Advance Directives Advance Directive Response Recorded Date/Time Advance Directives No October 24, 2015 1:56pm Advance Directive on File No June 08, 2019 8:15pm Directive to Physicians/Living Will No October 24, 2015 1:56pm Organ Donor No October 24, 2015 5:49am Medical Power of Synthetic Soil Blocks Pulper No October 24, 2015 5:49am Chief Complaint and Reason for Visit Chief Complaint General Complaint Reason for Visit [id number] Encounters Encounter Location(s) Arrival/Admit Date Discharge/Depart Date Provider(s) Departed June 08, June 09, 2019 ADEEL TRUJILLO Emergency Room [facility] 2018 8:01pm 3:06am Chastity LABOY Ctr Registered [place] May 20, 2019 NIKOS DUPREE [facility] 8:43am Ctr [facility] [place] [facility] [place] [facility] ABRAHAM [facility] Ctr Registered [place] April 22, 2019 CLINT FONTAINE Surgical Day [facility] 5:34am Care Ctr Assessments No Assessments Information Available Functional Status No Functional Status information available Goals No Goals Information Available Immunizations No Immunization Information Available Mental Status No Mental Status Information Available Medical Equipment No Medical Equipment Information available Insurance Providers Guarantor Bhavesh Mary Jr Address [address] [place] [id number] Contact Info. Home Phone: Payer Policy Id Coverage Id Subscriber's Subscriber Id Effective Expiration Name Date Date Medicare [id number] Usman Briggs [id number] Bhavesh Medicaid [id number] Usman Briggs [id number] Bhavesh Plan of Treatment Recommend that you take the [place] 150 2 times daily until you have followed up with your Cancer doctor in [place]. Otherwise return to the ED if your condition worsens. Future Tests Future scheduled test information is unavailable Pending Tests Test Name Date ordered Differential Comment April 20, 2019 12:42pm Future Visits Future appointment information is unavailable Referrals to Other Providers Reason for Referral Start Provider Provider Contact Provider Address Referral Date Information ELISABETH JOSEPH Work Phone: [address] [facility] [address] [facility] [address] Future Procedures Future procedure information is unavailable Future Medications Future medication information is unavailable Patient Instructions Preventing Iron Deficiency Anemia, Adult Iron-Rich Diet Social History Smoking Status Status Date of Observation Ex-smoker (finding) June 08, 2019 8:15pm Observation Status Observation Response Date of Response Hx Alcohol Use N - QUIT DRINKING 10 YEARS AGO April 20, 2019 12:10pm Hx Physical Abuse No June 08, 2019 8:15pm Assigned Sex Male Vital Signs Vital Reading Result Collection Date/Time
[2019-06-11] MEDS ORDERED: ONDANSETRON 4 MG/2 ML VIAL IV PRN (03:24)
--- NOTE | 2019-06-11 03:42 | P.HP ---
Certification for Inpatient Patient admitted to: Inpatient With expected LOS: >2 Midnights Practitioner: I am a practitioner with admitting privileges, knowledge of patient current condition, hospital course, and medical plan of care. Services: Services provided to patient in accordance with Admission requirements found in Title 42 Section 412.3 of the Code of Federal Regulations Patient History Date of Service: 06/11/19 Reason for admission: Neutropenia, fever, generalized weakness History of Present Illness: 73-year-old male with past medical history of CLL/SLL, CAD , history of stent, diabetes, hypertension, CKD stage 3, hyperlipidemia who presented to [place] ER with dizziness and generalized weakness associated with mild cough, workup was showing neutropenia and leukopenia and was sent over here for further management. Patient received last chemo 1 week back. Also had fever associated with some chills. Denies any chest pain or shortness of breath. Patient denies any sore throat. cough is productive with mucoid expectoration. No hemoptysis. Denies any dysuria. No sick contacts. no running nose or flu-like symptoms. Allergies No Known Allergies Allergy (Verified 01/02/19 16:55) Home medications list reviewed: Yes Home Medications: Atorvastatin Calcium 1 tab PO BEDTIME 12/12/18 Furosemide 0.5 tab PO SEECOM 12/12/18 Gabapentin 1 tab PO BID 12/12/18 Insulin Detemir [Levemir Flextouch] 35 unit SQ DAILY AT SUPPER 12/12/18 Insulin Detemir [Levemir Flextouch] 45 unit SQ DAILY 12/12/18 Sitagliptin Phosphate [Januvia*] 1 tab PO DAILY 12/12/18 Tamsulosin [Flomax*] 1 tab PO DAILY 12/12/18 allopurinoL [Allopurinol] 2 tab PO DAILY 12/12/18 lisinopriL [Prinivil*] 1 tab PO DAILY 12/12/18 - Past Medical/Surgical History Diabetic: Yes Past Medical History: Reviewed- Non-Contributory -: Diabetes mellitus type 2, insulin dependent -: Hypertension -: CAD with prior stents -: Hyperlipidemia -: CLL/SLL -: Chronic renal disease, stage III Past Surgical History: Reviewed- Non-Contributory -: Heart catheterization with 4 stents -: Appendectomy -: Right knee replacement Psychosocial/ Personal History: Patient is . He has no children - Family History Family History: Reviewed- Non-Contributory - Family History Father -: Cancer Mother -: Cancer - Social History Smoking Status: Never smoker Alcohol use: No CD- Drugs: No Caffeine use: Yes Place of Residence: Home Review of Systems 10-point ROS is otherwise unremarkable General: Fever, Chills, Weakness, Malaise Respiratory: Cough, Sputum Gastrointestinal: Unremarkable Musculoskeletal: Unremarkable Integumentary: Unremarkable Physical Examination - Vital Signs Temperature: 99.2 F Blood Pressure: 150/68 Pulse: 76 Respirations: 20 - Physical Exam General: Alert, Oriented x3, Mild distress HEENT: Atraumatic, Normocephalic Neck: Supple, 2+ carotid pulse no bruit Respiratory: Normal air movement, Crackles/rales Cardiovascular: Normal pulses, Regular rate/rhythm Capillary refill: <2 Seconds Gastrointestinal: Soft and benign, W/out hepatosplenomegaly Musculoskeletal: No clubbing, No swelling Integumentary: No rashes, No significant lesion Neurological: Normal speech, Normal strength at 5/5 x4 extr Lymphatics: No axilla or inguinal lymphadenopathy Urinary: Other (No bladder distention) External genitalia: Deferred Rectal: Deferred Assessment and Plan - Problems (Diagnosis) (1) Neutropenic fever Current Visit: Yes Status: Acute (2) CLL (chronic lymphocytic leukemia) Current Visit: Yes Status: Chronic (3) Diabetes Current Visit: Yes Status: Chronic (4) Hypertension Current Visit: Yes Status: Chronic (5) CKD stage 3 due to type 2 diabetes mellitus Current Visit: Yes Status: Chronic (6) History of coronary artery disease Current Visit: Yes Status: Chronic - Plan Neutropenic fever Hypotension CLL/SLL on chemotherapy Diabetes History of Hypertension Hyperlipidemia CKD stage 3 History of CAD Plan Monitored in telemetry IV hydration Start on Cefepime , azithromycin to cover for neutropenic fever/ CAP Will get a UA, chest x-ray, LDH, procalcitonin Continue home medications and titrate as stated Will get a hematology consult Insulin sliding scale GI/DVT prophylaxis Advanced directives full code - Advance Directives Does patient have a Living Will: No Does patient have a Durable POA for Healthcare: No Time Spent Managing Pts Care (In Minutes): 46
[2019-06-11] MEDS: NA CHLORIDE 0.9% 1,000 ML IV SCH ×2 (03:55→17:23)
[2019-06-11 04:06] LABS: Absolute Lymphocytes (CBC) 2.4 K/uL (0.7-4.9); Basophils % 0.1 % (0-1.3); Lymphocytes % 89.9 % (15.3-44.8); MPV 9.2 fL (7.6-11.3); Protime INR 1.33; RBC Red Blood Cell Count 3.31 M/uL (4.33-5.43)
[2019-06-11 04:27] LABS: Albumin 3.2 g/dL (3.4-5.0); Bilirubin Total 0.6 mg/dL (0.2-1.0); Magnesium 2.2 mg/dL (1.8-2.4); Phosphorus 4.5 mg/dL (2.5-4.9); Potassium 3.8 mmol/L (3.5-5.1); Protein, Total 6.4 g/dL (6.4-8.2); Thyroid Stimulating Hormone 1.32 uIU/mL (0.360-3.740)
[2019-06-11] MEDS ORDERED: D50W 25 GM/50 ML SYRINGE/VIAL IV PRN (04:33)
[2019-06-11] MEDS ORDERED: GLUCAGON 1 MG/VIAL IM PRN (04:33)
[2019-06-11 05:15] LABS: Blood Morphology Comment NOTED (NOT SEEN); Ovalocytes 2+; Platelet Estimate ADEQ
[2019-06-11] MEDS: ACETAMINOPHEN 500 MG TAB PO PRN ×3 (06:41→16:23)
[2019-06-11 06:52] LABS: Urine Appearance CLEAR; Urine Bilirubin NEGATIVE (NEG); Urine Blood 1+ (NEG); Urine Color YELLOW; Urine Glucose NEGATIVE (NEG); Urine Protein 1+ (NEG); Urine Urobilinogen 0.2 mg/dL (0.2-1.0); Urine pH 5.5 (5.0-7.0)
[2019-06-11 06:59] LABS: Urine Microscopic Reflex ORDER UMIC
[2019-06-11] MEDS: INSULIN -REGULAR HUMAN 50 UNIT/0.5 ML ML SQ SCH ×4 (07:30→21:17)
[2019-06-11 07:35] LABS: Urine Amorphous Sediment 1+ /HPF (NONE SEEN); Urine Bacteria NONE SEEN /HPF (NONE SEEN); Urine Culture Reflex Order NOT NEEDED; Urine Mucus LIGHT /HPF (NONE SEEN); Urine RBC <5 /HPF (NONE SEEN)
[2019-06-11] MEDS: ALBUTEROL 2.5 MG/3 ML NEB SOL NEB PRN ×3 (08:14→19:30)
[2019-06-11] MEDS: IPRATROPIUM BROM 0.5MG/2.5ML NEB SCH ×3 (08:14→19:30)
--- NOTE | 2019-06-11 08:23 | P.PN ---
Subjective Date of Service: 06/11/19 Chief Complaint: Neutropenia, fever, generalized weakness Subjective: No new changes, Doing well (s/p hypoglycemia , improved with meals - report nx and vx at home since yesterday -s/p dat for cardiac cath at [facility] - on reported oral chemo pills with possible iriburicemia) Review of Systems Unremarkable Physical Examination - Vital Signs Temperature: 100.5 F Blood Pressure: 188/55 Pulse: 97 Respirations: 18 Pulse Ox (%): 100 - Physical Exam General: Alert, Oriented x3 HEENT: Atraumatic, Normocephalic, PERRLA Neck: Supple, 2+ carotid pulse no bruit Respiratory: Clear to auscultation bilaterally, Normal air movement Cardiovascular: No edema, Normal pulses Gastrointestinal: Normal bowel sounds, Soft and benign, No tenderness Neurological: Normal gait, Normal speech - Studies Laboratory Data (last 24 hrs) 06/11/19 03:44: Sodium 138, Potassium 3.8, BUN 39 H, Creatinine 2.01 H, Glucose 59 L, Phosphorus 4.5, Magnesium 2.2, Total Bilirubin 0.6, AST 18, ALT 10 L, Alkaline Phosphatase 59 06/11/19 03:44: PT 15.5 H, INR 1.33 06/11/19 03:44: WBC 2.6 L, Hgb 9.9 L, Hct 30.0 L, Plt Count 159 Assessment & Plan - Problems (Diagnosis) (1) Neutropenic fever Current Visit: Yes Status: Acute (2) CKD stage 3 due to type 2 diabetes mellitus Current Visit: Yes Status: Chronic (3) CLL (chronic lymphocytic leukemia) Current Visit: Yes Status: Chronic (4) Diabetes Current Visit: Yes Status: Chronic (5) History of coronary artery disease Current Visit: Yes Status: Chronic (6) Hypertension Current Visit: Yes Status: Chronic Discharge Plan: Home Plan to discharge in: 72 Hours Physician Review: Patient Assessed, Agree with Above Assessment and Plan Physician Review Additional Text: - switch abx to vanco and cefepime since no pna on CXR -follow UA - follow blood cx - will consult Dr Saleem -pt oncologist - resume home regime except hold levemir - c/w to hold chemo - c/w IVF and po intake with antiemetics Critical Care: Yes
[2019-06-11] MEDS ORDERED: NITROGLYCERIN 0.4 MG/TAB SL PRN (08:27)
[2019-06-11] MEDS ORDERED: VANCOMYCIN/NS 1 gm 1 GM/250 ML BAG IVPB SCH (08:30)
--- NOTE | 2019-06-11 08:47 | RAD REPORT ---
EXAM DESCRIPTION: RAD - Chest Single View - 06/11/2019 7:55 am CLINICAL HISTORY: newly admit for sepsis Chest pain. COMPARISON: Chest Single View dated 12/12/2018; Chest Pa And Lat (2 Views) dated 05/16/2017 FINDINGS: Portable technique limits examination quality. Mild opacity is present in the left apex suspicious for developing infiltrate/ pneumonia. The lungs a re otherwise clear. The heart is normal in size. No displaced fractures.
[2019-06-11] MEDS: TAMSULOSIN 0.4 MG SR CAP PO SCH (08:52)
[2019-06-11] MEDS: ASPIRIN EC 81 MG TAB PO SCH (08:52)
[2019-06-11] MEDS: CLOPIDOGREL 75 MG TABLET PO SCH (08:52)
[2019-06-11] MEDS: ATORVASTATIN 10 MG TAB PO SCH (08:52)
[2019-06-11] MEDS: AMLODIPINE 5 MG TAB PO SCH (08:53)
[2019-06-11] MEDS: GABAPENTIN 300 MG CAP PO SCH ×2 (08:53→21:17)
[2019-06-11] MEDS ORDERED: AZITHROMYCIN IV 500 MG in NA CHLORIDE 0.9% 250 ML IVPB SCH (09:00)
[2019-06-11] MEDS ORDERED: CEFEPIME 1 GM/VIAL IV SCH (09:00)
[2019-06-11] MEDS: VANCOMYCIN 1.25 GM in NA CHLORIDE 0.9% 250 ML IVPB SCH (09:44)
[2019-06-11] MEDS ORDERED: CODEINE 30MG/APAP 300MG TAB PO PRN (14:36)
[2019-06-11] MEDS: IBUPROFEN 600 MG TAB PO PRN (19:14)
[2019-06-11] MEDS ORDERED: FAMOTIDINE 20 MG TAB PO SCH (21:00)
[2019-06-11] MEDS: FAMOTIDINE 20 MG TAB PO SCH (21:15)
[2019-06-11] MEDS: CEFEPIME/SWI 1gm 10 ML IV SCH (21:17)
[2019-06-12] MEDS: IPRATROPIUM BROM 0.5MG/2.5ML NEB SCH ×4 (01:45→19:40)
[2019-06-12] MEDS: NA CHLORIDE 0.9% 1,000 ML IV SCH ×3 (02:41→10:00)
[2019-06-12 06:43] LABS: Absolute Lymphocytes (CBC) 1.9 K/uL (0.7-4.9); Hematocrit 27.5 % (39.6-49.0); Lymphocytes % 95.5 % (15.3-44.8); MPV 9.7 fL (7.6-11.3); RBC Red Blood Cell Count 3.06 M/uL (4.33-5.43)
[2019-06-12 06:55] LABS: ALT/SGPT 10 U/L (12-78); AST/SGOT 13 U/L (15-37); Albumin 2.5 g/dL (3.4-5.0); Alkaline Phosphatase 47 U/L (45-117); BUN Blood Urea Nitrogen 38 mg/dL (7-18); Bicarbonate 23 mmol/L (21-32); Bilirubin Total 0.7 mg/dL (0.2-1.0); Glucose Level 53 mg/dL (74-106); HDL Cholesterol 19 mg/dL (40-60); Potassium 4.8 mmol/L (3.5-5.1); Protein, Total 5.6 g/dL (6.4-8.2); Sodium Level 140 mmol/L (136-145)
[2019-06-12 06:57] LABS: LDL Cholesterol, Calculated 21 (<130)
[2019-06-12] MEDS: INSULIN -REGULAR HUMAN 50 UNIT/0.5 ML ML SQ SCH ×2 (07:30→12:00)
[2019-06-12] MEDS: ALBUTEROL 2.5 MG/3 ML NEB SOL NEB PRN ×2 (07:30→13:15)
[2019-06-12] MEDS ORDERED: D5W 1,000 ML IV SCH (09:00)
[2019-06-12] MEDS: TAMSULOSIN 0.4 MG SR CAP PO SCH (09:09)
[2019-06-12] MEDS: ATORVASTATIN 10 MG TAB PO SCH (09:09)
[2019-06-12] MEDS: ASPIRIN EC 81 MG TAB PO SCH (09:10)
[2019-06-12] MEDS: CLOPIDOGREL 75 MG TABLET PO SCH (09:10)
[2019-06-12] MEDS: AMLODIPINE 5 MG TAB PO SCH (09:10)
[2019-06-12] MEDS: GABAPENTIN 300 MG CAP PO SCH ×2 (09:10→21:03)
[2019-06-12] MEDS: FAMOTIDINE 20 MG TAB PO SCH (09:10)
--- NOTE | 2019-06-12 10:50 | P.PN ---
Subjective Date of Service: 06/12/19 Chief Complaint: Neutropenia, fever, generalized weakness Subjective: No new changes, Doing well (no more fever -tolerating po well , ate 100% of meal today - noted low glucose early this am , D50 given) Review of Systems 10-point ROS is otherwise unremarkable Physical Examination - Vital Signs Temperature: 98.9 F Blood Pressure: 154/68 Pulse: 100 Respirations: 17 Pulse Ox (%): 100 - Physical Exam HEENT: Atraumatic, Normocephalic Neck: 2+ carotid pulse no bruit, JVD not distended Respiratory: Clear to auscultation bilaterally, Normal air movement Cardiovascular: Normal pulses, Regular rate/rhythm, Normal S1 S2 Gastrointestinal: Normal bowel sounds, Soft and benign Musculoskeletal: No clubbing, No swelling Neurological: Normal gait, Normal speech, Normal strength at 5/5 x4 extr External genitalia: No edema, No lesions - Studies Laboratory Data (last 24 hrs) 06/12/19 08:38: Glucose 93 06/12/19 05:48: WBC 2.0 L D, Hgb 9.0 L, Hct 27.5 L, Plt Count 146 L 06/12/19 05:48: Sodium 140, Potassium 4.8, BUN 38 H, Creatinine 1.66 H, Glucose 53 L, Total Bilirubin 0.7, AST 13 L, ALT 10 L, Alkaline Phosphatase 47, Triglycerides 52, Cholesterol < 50, HDL Cholesterol 19 L, Cholesterol/HDL Ratio 2.63 06/11/19 20:19: Troponin I < 0.02 06/11/19 11:13: Troponin I < 0.02 Microbiology Data (last 24 hrs): 06/11/19 06:20 Blood - Blood Anaerobic Blood Culture - Final 06/11/19 06:28 Blood - Blood Anaerobic Blood Culture - Final Medications List Reviewed: Yes Assessment & Plan - Problems (Diagnosis) (1) Neutropenic fever Current Visit: Yes Status: Acute (2) CKD stage 3 due to type 2 diabetes mellitus Current Visit: Yes Status: Chronic (3) CLL (chronic lymphocytic leukemia) Current Visit: Yes Status: Chronic (4) Diabetes Current Visit: Yes Status: Chronic (5) History of coronary artery disease Current Visit: Yes Status: Chronic (6) Hypertension Current Visit: Yes Status: Chronic - Code Status/Comfort Care Code Status: Full Code Physician Review: Patient Assessed, Agree with Above Assessment and Plan Physician Review Additional Text: # Neutropneic fever -improving -c/w current abx regime - vanco and levaquin -resolevd fever , still persistent low neutrophilc ount , follow oncology # Hypoglycemia - hold insulin regime -start gentle D5W -c/w regular intake for now # CLL - on chemo as oupt
[2019-06-12] MEDS: IBUPROFEN 600 MG TAB PO PRN (12:01)
[2019-06-12] MEDS: ACETAMINOPHEN 500 MG TAB PO PRN (13:24)
[2019-06-12] MEDS: HYDRALAZINE HCL 20 MG/ML VIAL IV PRN (13:24)
[2019-06-12] MEDS ORDERED: MORPHINE 2 MG/ML SYR IV ONE (14:14)
[2019-06-12] MEDS ORDERED: MORPHINE 2 MG/ML SYR IV PRN (14:27)
[2019-06-12] MEDS ORDERED: GUAIFENESIN/DM 5 ML UCUP PO PRN (14:35)
--- NOTE | 2019-06-12 15:41 | RAD REPORT ---
EXAM DESCRIPTION: CT - Chest For Pe Angio - 06/12/2019 3:17 pm CLINICAL HISTORY: Chest pain COMPARISON: February 2019 TECHNIQUE: Dynamically enhanced axial 3 mm thick images of the chest were obtained during administra tion of <100> mL Isovue 370 IV contrast. Coronal and oblique reconstruction images were generated and reviewed. Exam utilizes a protocol for optimal evaluation of pulmonary arterial tree. The referring physician was aware of the elevated creatinine but preferred that the exam be performed in order to detect a potentially life-threatening pulmonary embolus Maximum intensity projections 3D imaging was utilized All CT scans are performed using dose optimization technique as appropriate and may include automated exposure control or mA/KV adjustment according to patient size. FINDINGS: A pulmonary embolus is not seen. A thoracic aortic aneurysm is not noted. A pleural effusion is not seen. A pericardial effusion is not seen. 7 centimeter lingular consolidation. Additional left upper lobe consolidation Mild mediastinal lymphadenopathy IMPRESSION: Negative for a pulmonary embolism. Left lung consolidations may represent pneumonia. As a mass has a similar appearance this should be f ollowed until it has cleared to help exclude a post obstructive process/underlying mass
[2019-06-12] MEDS: Levofloxacin500mg IV 500 MG/100 ML BAG IV SCH (16:47)
[2019-06-12] MEDS: GUAIFENESIN/CODEINE 5ML UCUP PO PRN ×2 (16:47→21:06)
[2019-06-12] MEDS: VANCOMYCIN 1.25 GM in NA CHLORIDE 0.9% 250 ML IVPB SCH (21:06)
[2019-06-12] MEDS: CEFEPIME/SWI 1gm 10 ML IV SCH (21:06)
[2019-06-13] MEDS: IPRATROPIUM BROM 0.5MG/2.5ML NEB SCH ×4 (02:30→20:18)
[2019-06-13 06:34] LABS: Absolute Lymphocytes (CBC) 1.4 K/uL (0.7-4.9); Hematocrit 25.1 % (39.6-49.0); Lymphocytes % 94.4 % (15.3-44.8)
[2019-06-13 06:38] LABS: Potassium 4.7 mmol/L (3.5-5.1)
[2019-06-13] MEDS: ASPIRIN EC 81 MG TAB PO SCH (08:44)
[2019-06-13] MEDS: ATORVASTATIN 10 MG TAB PO SCH (08:44)
[2019-06-13] MEDS: FAMOTIDINE 20 MG TAB PO SCH (08:44)
[2019-06-13] MEDS: GABAPENTIN 300 MG CAP PO SCH ×2 (08:45→21:41)
[2019-06-13] MEDS: TAMSULOSIN 0.4 MG SR CAP PO SCH (08:45)
[2019-06-13] MEDS: CLOPIDOGREL 75 MG TABLET PO SCH (08:45)
[2019-06-13] MEDS: AMLODIPINE 5 MG TAB PO SCH (08:56)
--- NOTE | 2019-06-13 10:18 | P.PN ---
Subjective Date of Service: 06/13/19 Chief Complaint: Neutropenia, fever, generalized weakness Subjective: No new changes, Improving (feels much better , no new fever since added levaquin -chest pain resolved now , cough improved) Review of Systems 10-point ROS is otherwise unremarkable Physical Examination - Vital Signs Temperature: 98.8 F Blood Pressure: 140/54 Pulse: 106 Respirations: 18 Pulse Ox (%): 93 - Physical Exam General: Alert, Oriented x3, Cooperative HEENT: Atraumatic, Normocephalic, PERRLA Neck: Supple, 2+ carotid pulse no bruit Respiratory: Clear to auscultation bilaterally, Normal air movement, Crackles/ rales (left base ) Cardiovascular: Normal pulses, Regular rate/rhythm, Normal S1 S2 Gastrointestinal: Normal bowel sounds, Soft and benign Musculoskeletal: No clubbing, No swelling Neurological: Normal gait, Normal speech - Studies Laboratory Data (last 24 hrs) 06/13/19 05:34: Sodium 135 L, Potassium 4.7, BUN 38 H, Creatinine 1.66 H, Glucose 101 06/13/19 05:34: WBC 1.5 L* D, Hgb 8.3 L, Hct 25.1 L, Plt Count 137 L 06/12/19 17:55: Troponin I < 0.02 06/12/19 14:07: Troponin I < 0.02 Microbiology Data (last 24 hrs): 06/11/19 06:20 Blood - Blood Anaerobic Blood Culture - Final 06/11/19 06:28 Blood - Blood Anaerobic Blood Culture - Final Medications List Reviewed: Yes Assessment & Plan - Problems (Diagnosis) (1) Neutropenic fever Current Visit: Yes Status: Acute (2) CKD stage 3 due to type 2 diabetes mellitus Current Visit: Yes Status: Chronic (3) CLL (chronic lymphocytic leukemia) Current Visit: Yes Status: Chronic (4) Diabetes Current Visit: Yes Status: Chronic (5) History of coronary artery disease Current Visit: Yes Status: Chronic (6) Hypertension Current Visit: Yes Status: Chronic Physician Review: Patient Assessed, Agree with Above Assessment and Plan Physician Review Additional Text: # Neutropenic fever - due to pneumonia- improving -c/w levaquin and cefepime , can dc vanco now - no fever since last 16 hrs , follow for another 24 hrs -still persistent low neutrophil count , since yet to see oncology , will dose neupogen x1 today for worsneing leucopenia # Left Pneumonia - with 2 areas of consolidation , unclear of postobstructive pna vs multifocal pna -c/w levaquin abx -will need repeat CT chest after pna resolved in 3 weeks # Hypoglycemia - resolved -c/w Regular po intake now - hold long acting insulin # HTN -controlled , resolved urgency # CLL - on chemo as oupt Time Spent Managing Pts Care (In Minutes): 40
[2019-06-13] MEDS: TBO-FILGRASTIM 480 MCG/0.8 ML SYR SQ SCH (11:44)
[2019-06-13] MEDS: Levofloxacin500mg IV 500 MG/100 ML BAG IV SCH (16:35)
[2019-06-13] MEDS: ACETAMINOPHEN 500 MG TAB PO PRN ×2 (16:35→21:41)
[2019-06-13] MEDS: HYDRALAZINE HCL 20 MG/ML VIAL IV PRN (16:37)
[2019-06-13] MEDS: METOPROLOL TAR 25 MG TAB PO SCH (18:19)
[2019-06-13] MEDS: IBUPROFEN 600 MG TAB PO PRN (18:24)
[2019-06-13] MEDS ORDERED: VANCOMYCIN 1.25 GM in NA CHLORIDE 0.9% 250 ML IVPB SCH (21:00)
[2019-06-13] MEDS: CEFEPIME/SWI 1gm 10 ML IV SCH (21:41)
[2019-06-14] MEDS: IPRATROPIUM BROM 0.5MG/2.5ML NEB SCH ×5 (01:40→20:10)
[2019-06-14] MEDS: METOPROLOL TAR 25 MG TAB PO SCH ×2 (05:10→17:21)
[2019-06-14 05:47] LABS: Absolute Lymphocytes (CBC) 1.3 K/uL (0.7-4.9); Lymphocytes % 93.7 % (15.3-44.8); MPV 9.8 fL (7.6-11.3)
[2019-06-14 05:58] LABS: Magnesium 2.7 mg/dL (1.8-2.4); Phosphorus 3.3 mg/dL (2.5-4.9); Potassium 4.9 mmol/L (3.5-5.1)
[2019-06-14 07:18] VITALS: BMI 26.8
[2019-06-14] MEDS: ALBUTEROL 2.5 MG/3 ML NEB SOL NEB PRN ×2 (07:25→13:00)
[2019-06-14] MEDS: AMLODIPINE 5 MG TAB PO SCH (08:58)
[2019-06-14] MEDS: ASPIRIN EC 81 MG TAB PO SCH (08:59)
[2019-06-14] MEDS: TBO-FILGRASTIM 480 MCG/0.8 ML SYR SQ SCH (08:59)
[2019-06-14] MEDS: TAMSULOSIN 0.4 MG SR CAP PO SCH (08:59)
[2019-06-14] MEDS: CLOPIDOGREL 75 MG TABLET PO SCH (08:59)
[2019-06-14] MEDS: FAMOTIDINE 20 MG TAB PO SCH (08:59)
[2019-06-14] MEDS: GABAPENTIN 300 MG CAP PO SCH ×2 (08:59→19:57)
[2019-06-14] MEDS: ATORVASTATIN 10 MG TAB PO SCH (08:59)
--- NOTE | 2019-06-14 10:58 | P.PN ---
Subjective Date of Service: 06/14/19 Chief Complaint: Neutropenia, fever, generalized weakness Subjective: No new changes (seen, no new chnages -s/p fever last pm , none since) Review of Systems Unremarkable Physical Examination - Vital Signs Temperature: 97.4 F Blood Pressure: 145/65 Pulse: 80 Respirations: 18 Pulse Ox (%): 99 - Physical Exam General: Alert, Oriented x3 HEENT: Atraumatic, Normocephalic Respiratory: Clear to auscultation bilaterally, Normal air movement Cardiovascular: No edema, Normal pulses Gastrointestinal: Normal bowel sounds, Soft and benign Musculoskeletal: No clubbing, No swelling Neurological: Normal speech, Normal strength at 5/5 x4 extr, Normal tone - Studies Laboratory Data (last 24 hrs) 06/14/19 05:20: Sodium 134 L, Potassium 4.9, BUN 44 H, Creatinine 1.69 H, Glucose 95, Phosphorus 3.3, Magnesium 2.7 H D 06/14/19 05:20: WBC 1.4 L*, Hgb 8.0 L, Hct 24.0 L, Plt Count 126 L Medications List Reviewed: Yes Assessment & Plan - Problems (Diagnosis) (1) Neutropenic fever Current Visit: Yes Status: Acute (2) CKD stage 3 due to type 2 diabetes mellitus Current Visit: Yes Status: Chronic (3) CLL (chronic lymphocytic leukemia) Current Visit: Yes Status: Chronic (4) Diabetes Current Visit: Yes Status: Chronic (5) History of coronary artery disease Current Visit: Yes Status: Chronic (6) Hypertension Current Visit: Yes Status: Chronic Physician Review: Patient Assessed, Agree with Above Assessment and Plan Physician Review Additional Text: # Neutropenic fever - still some fevers but pattern improving -due to pneumonia -c/w levaquin and cefepime -follow for fever free for next 24 hrs - continue started neupogen # Left Pneumonia -improving -c/w abx 06/14- with 2 areas of consolidation , unclear of postobstructive pna vs multifocal pna -c/w levaquin abx -will need repeat CT chest after pna resolved in 3 weeks # Hypoglycemia - resolved 06/13-c/w Regular po intake now - hold long acting insulin # HTN -controlled , resolved urgency # CLL - on chemo as oupt
--- NOTE | 2019-06-14 11:48 | EKG ---
Test Date: 2019-06-12 Test Time: 13:51:27 Machinist General: PAGE MEASUREMENT RESULTS: Intervals: Rate: 114 LA: 148 QRSD: 128 QT: 320 QTc: 441 [place]ver: P: 51 LA: 148 QRS: 81 T: 18 INTERPRETIVE STATEMENTS: Sinus tachycardia Right bundle branch block Cannot rule out Inferior infarct, age undetermined Abnormal ECG Compared to ECG 04/13/2019 12:47:26 Myocardial infarct finding now present Sinus rhythm no longer present Electronically Signed On 06-14-19 11:42:40 [employer] by Ian Johnosn
[2019-06-14] MEDS: Levofloxacin500mg IV 500 MG/100 ML BAG IV SCH (17:21)
[2019-06-14] MEDS: CEFEPIME/SWI 1gm 10 ML IV SCH (19:57)
[2019-06-14] MEDS: ACETAMINOPHEN 500 MG TAB PO PRN (20:52)
[2019-06-15 04:41] LABS: Absolute Lymphocytes (CBC) 0.9 K/uL (0.7-4.9); Basophils % 1.2 % (0-1.3); Hematocrit 24.1 % (39.6-49.0); MPV 9.4 fL (7.6-11.3)
[2019-06-15 04:47] LABS: Albumin 2.1 g/dL (3.4-5.0); Bilirubin Total 0.7 mg/dL (0.2-1.0); Magnesium 2.4 mg/dL (1.8-2.4); Potassium 4.3 mmol/L (3.5-5.1); Protein, Total 5.6 g/dL (6.4-8.2)
[2019-06-15 04:50] LABS: Lymphocytes % 92.3 % (15.3-44.8)
[2019-06-15] MEDS: METOPROLOL TAR 25 MG TAB PO SCH ×2 (05:02→18:35)
[2019-06-15] MEDS: IPRATROPIUM BROM 0.5MG/2.5ML NEB SCH ×3 (08:20→19:30)
--- NOTE | 2019-06-15 08:20 | RAD REPORT ---
EXAM DESCRIPTION: RAD - Chest Pa And Lat (2 Views) - 06/15/2019 8:11 am CLINICAL HISTORY: follow up pneumonia, shortness of breath COMPARISON: CT study June 12, portable chest June 11 TECHNIQUE: PA and lateral views of the chest were obtained. FINDINGS: The lungs are normal volume. Areas of consolidated parenchyma in the posterosuperior left upper lobe and anterior inferior left upper lobe not substantially different from the CT imaging. No evidence for progression. Right lung field remains clear. Heart size is normal and central vasculature is within normal limits. No pleural effusion or pneu mothorax seen. No acute bony finding noted. No aortic abnormality. IMPRESSION: No improvement in the areas of consolidated parenchyma in the left upper lobe. Continued close follow-up is needed to assure clearing of the lung masses.
[2019-06-15] MEDS: AMLODIPINE 5 MG TAB PO SCH (08:50)
[2019-06-15] MEDS: CLOPIDOGREL 75 MG TABLET PO SCH (08:51)
[2019-06-15] MEDS: ASPIRIN EC 81 MG TAB PO SCH (08:51)
[2019-06-15] MEDS: TAMSULOSIN 0.4 MG SR CAP PO SCH (08:51)
[2019-06-15] MEDS: ATORVASTATIN 10 MG TAB PO SCH (08:51)
[2019-06-15] MEDS: FAMOTIDINE 20 MG TAB PO SCH (08:51)
[2019-06-15] MEDS: GABAPENTIN 300 MG CAP PO SCH ×2 (08:51→19:56)
[2019-06-15] MEDS ORDERED: TRAMADOL HCL 50 MG TAB PO PRN (09:29)
--- NOTE | 2019-06-15 09:34 | P.PN ---
Subjective Date of Service: 06/15/19 Primary Care Provider: Dr. Hi([place]); Oncology-Dr. Howard Chief Complaint: Neutropenia, fever, generalized weakness Subjective: Improving, Doing well Physical Examination - Vital Signs Temperature: 97.8 F Blood Pressure: 150/58 Pulse: 83 Respirations: 18 Pulse Ox (%): 99 - Physical Exam General: Alert, In no apparent distress, Oriented x3, Cooperative HEENT: Atraumatic Neck: Supple Respiratory: Clear to auscultation bilaterally, Normal air movement Cardiovascular: Normal pulses, Regular rate/rhythm Gastrointestinal: Normal bowel sounds, Soft and benign, Non-distended Neurological: Normal speech, Normal strength at 5/5 x4 extr, Normal tone, Normal affect - Studies Laboratory Data (last 24 hrs) 06/15/19 04:05: Sodium 133 L, Potassium 4.3, BUN 39 H, Creatinine 1.61 H, Glucose 116 H, Magnesium 2.4, Total Bilirubin 0.7, AST 58 H, ALT 48, Alkaline Phosphatase 77 D 06/15/19 04:05: WBC 1.0 L* D, Hgb 7.9 L*, Hct 24.1 L, Plt Count 123 L Medications List Reviewed: Yes Assessment & Plan Discharge Plan: Home Plan to discharge in: 24 Hours Physician Review Additional Text: Impression: Neutropenic fever secondary to left upper lobe pneumonia Hypoglycemia resolved Acute on chronic renal disease stage III Anemia of chronic disease Hypertension History of CLL on chemotherapy CAD Hyperlipidemia GERD Plan: Neutropenic fever secondary to left upper lobe pneumonia: Continue with antibiotic therapy. Antibiotics adjusted. Continue medication for neutropenia. Continue with medication for cough, congestion. Wean off oxygen. Patient shows improvement. Will monitor closely. Likely discharge in the next 24-48 hr pending clinical improvement. Hypoglycemia resolved: Encourage oral intake. Acute on chronic renal disease stage III: Adjust IV fluids. Encourage oral intake. Will monitor electrolytes. Anemia of chronic disease: Continue monitor closely. Patient may require transfusion if hemoglobin continues to drop. Hypertension: Continue medication. History of CLL on chemotherapy: Will discuss with Oncology. Continue monitor closely. Patient gets chemotherapy as outpatient. CAD: Continue with medication. Hyperlipidemia: Continue with medication. GERD: Continue with medication. Time Spent Managing Pts Care (In Minutes): 55
[2019-06-15 12:00] LABS: Hematocrit 24.5 % (39.6-49.0)
[2019-06-15] MEDS: TBO-FILGRASTIM 480 MCG/0.8 ML SYR SQ SCH (14:13)
[2019-06-15] MEDS: Levofloxacin500mg IV 500 MG/100 ML BAG IV SCH (16:38)
[2019-06-15] MEDS: ACETAMINOPHEN 500 MG TAB PO PRN (19:56)
[2019-06-16] MEDS: IPRATROPIUM BROM 0.5MG/2.5ML NEB SCH ×4 (01:30→19:35)
[2019-06-16] MEDS: METOPROLOL TAR 25 MG TAB PO SCH ×2 (05:20→17:53)
[2019-06-16 06:54] LABS: Absolute Lymphocytes (CBC) 1.1 K/uL (0.7-4.9); Hematocrit 23.1 % (39.6-49.0); Lymphocytes % 92.9 % (15.3-44.8); MPV 10.4 fL (7.6-11.3); Magnesium 2.1 mg/dL (1.8-2.4); Potassium 4.5 mmol/L (3.5-5.1); RBC Red Blood Cell Count 2.63 M/uL (4.33-5.43)
[2019-06-16 08:58] LABS: Anisocytosis 1+; Blood Morphology Comment NOTED (NOT SEEN); Ovalocytes 1+; Platelet Estimate ADEQ; Urine White Blood Cell Casts OK
[2019-06-16] MEDS ORDERED: HYDRALAZINE HCL 20 MG/ML VIAL IV PRN (09:31)
[2019-06-16] MEDS: GABAPENTIN 300 MG CAP PO SCH ×2 (09:35→20:48)
[2019-06-16] MEDS: AMLODIPINE 5 MG TAB PO SCH (09:35)
[2019-06-16] MEDS: TBO-FILGRASTIM 480 MCG/0.8 ML SYR SQ SCH (09:35)
[2019-06-16] MEDS: ASPIRIN EC 81 MG TAB PO SCH (09:36)
[2019-06-16] MEDS: FAMOTIDINE 20 MG TAB PO SCH (09:36)
[2019-06-16] MEDS: CLOPIDOGREL 75 MG TABLET PO SCH (09:36)
[2019-06-16] MEDS: TAMSULOSIN 0.4 MG SR CAP PO SCH (09:36)
[2019-06-16] MEDS: ATORVASTATIN 10 MG TAB PO SCH (09:37)
[2019-06-16] MEDS ORDERED: FUROSEMIDE 40 MG/4 ML VIAL IV ONE (09:37)
--- NOTE | 2019-06-16 09:37 | P.PN ---
Subjective Date of Service: 06/16/19 Primary Care Provider: Dr. Hi([place]); Oncology-Dr. Howard Chief Complaint: Neutropenia, fever, generalized weakness Subjective: No new changes, Tolerating diet (seen , on neb tx feels fine) Review of Systems 10-point ROS is otherwise unremarkable Physical Examination - Vital Signs Temperature: 99.3 F Blood Pressure: 163/56 Pulse: 95 Respirations: 18 Pulse Ox (%): 97 - Physical Exam General: Alert, Oriented x3 HEENT: Atraumatic, PERRLA Neck: Supple, 2+ carotid pulse no bruit Respiratory: Normal air movement, Diminished, Expiratory wheezes Cardiovascular: Normal pulses, Regular rate/rhythm, Normal S1 S2 Gastrointestinal: Normal bowel sounds, Soft and benign Musculoskeletal: No clubbing, No swelling Integumentary: No rashes, No breakdown Neurological: Normal gait, Normal speech External genitalia: No edema, No lesions - Studies Laboratory Data (last 24 hrs) 06/16/19 05:43: Sodium 134 L, Potassium 4.5, BUN 38 H, Creatinine 1.70 H, Glucose 146 H, Magnesium 2.1 06/16/19 05:43: WBC 1.2 L* D, Hgb 7.7 L*, Hct 23.1 L, Plt Count 133 L 06/15/19 11:52: Hgb 8.3 L, Hct 24.5 L Microbiology Data (last 24 hrs): 06/11/19 06:20 Blood - Blood Aerobic Blood Culture - Final No growth in 5 days. 06/11/19 06:20 Blood - Blood Anaerobic Blood Culture - Final 06/11/19 06:28 Blood - Blood Aerobic Blood Culture - Final No growth in 5 days. 06/11/19 06:28 Blood - Blood Anaerobic Blood Culture - Final Medications List Reviewed: Yes Assessment & Plan - Problems (Diagnosis) (1) Neutropenic fever Current Visit: Yes Status: Acute (2) CKD stage 3 due to type 2 diabetes mellitus Current Visit: Yes Status: Chronic (3) CLL (chronic lymphocytic leukemia) Current Visit: Yes Status: Chronic (4) Diabetes Current Visit: Yes Status: Chronic (5) History of coronary artery disease Current Visit: Yes Status: Chronic (6) Hypertension Current Visit: Yes Status: Chronic Physician Review: Patient Assessed, Agree with Above Assessment and Plan Physician Review Additional Text: Impression: Neutropenic fever secondary to left upper lobe pneumonia Hypoglycemia resolved Acute on chronic renal disease stage III Anemia of chronic disease Hypertension History of CLL on chemotherapy CAD Hyperlipidemia GERD Plan: - continue abx -trending done h/h likely due to chemo , will obtain occult blood - will dose Epogen 20k x1 today -c/w neupogen - will dose lasix x1 today for mild pul edema - c/w BP meds - will keep patient until sat well and absence of fever for 24 hrs
[2019-06-16] MEDS ORDERED: EPOETIN ALFA 20,000 UNIT/ML SQ SCH (10:00)
[2019-06-16] MEDS: Levofloxacin500mg IV 500 MG/100 ML BAG IV SCH (17:53)
[2019-06-17] MEDS: ACETAMINOPHEN 500 MG TAB PO PRN (00:46)
[2019-06-17] MEDS: IPRATROPIUM BROM 0.5MG/2.5ML NEB SCH ×4 (01:15→19:40)
[2019-06-17] MEDS: METOPROLOL TAR 25 MG TAB PO SCH ×2 (05:39→18:00)
[2019-06-17 07:00] LABS: Albumin 2.3 g/dL (3.4-5.0); Bilirubin Total 0.8 mg/dL (0.2-1.0); Magnesium 2.3 mg/dL (1.8-2.4); Potassium 4.3 mmol/L (3.5-5.1); Protein, Total 5.9 g/dL (6.4-8.2)
[2019-06-17 07:13] LABS: Absolute Lymphocytes (CBC) 1.6 K/uL (0.7-4.9); Hematocrit 26.6 % (39.6-49.0); Lymphocytes % 92.8 % (15.3-44.8); MPV 10.4 fL (7.6-11.3); RBC Red Blood Cell Count 3.04 M/uL (4.33-5.43)
[2019-06-17] MEDS: CLOPIDOGREL 75 MG TABLET PO SCH (09:03)
[2019-06-17] MEDS: TBO-FILGRASTIM 480 MCG/0.8 ML SYR SQ SCH (09:03)
[2019-06-17] MEDS: ATORVASTATIN 10 MG TAB PO SCH (09:04)
[2019-06-17] MEDS: ASPIRIN EC 81 MG TAB PO SCH (09:04)
[2019-06-17] MEDS: GABAPENTIN 300 MG CAP PO SCH ×2 (09:04→20:54)
[2019-06-17] MEDS: FAMOTIDINE 20 MG TAB PO SCH (09:04)
[2019-06-17] MEDS: TAMSULOSIN 0.4 MG SR CAP PO SCH (09:05)
[2019-06-17] MEDS: AMLODIPINE 5 MG TAB PO SCH (09:05)
[2019-06-17] MEDS: Levofloxacin500mg IV 500 MG/100 ML BAG IV SCH (16:52)
[2019-06-18] MEDS: IPRATROPIUM BROM 0.5MG/2.5ML NEB SCH ×4 (01:15→20:00)
[2019-06-18 05:06] LABS: Absolute Lymphocytes (CBC) 1.5 K/uL (0.7-4.9); Hematocrit 24.3 % (39.6-49.0); Lymphocytes % 90.6 % (15.3-44.8); MPV 10.1 fL (7.6-11.3); RBC Red Blood Cell Count 2.79 M/uL (4.33-5.43)
[2019-06-18] MEDS: METOPROLOL TAR 25 MG TAB PO SCH ×2 (06:12→18:10)
[2019-06-18] MEDS: TAMSULOSIN 0.4 MG SR CAP PO SCH (08:45)
[2019-06-18] MEDS: FAMOTIDINE 20 MG TAB PO SCH (08:45)
[2019-06-18] MEDS: TBO-FILGRASTIM 480 MCG/0.8 ML SYR SQ SCH (08:45)
[2019-06-18] MEDS: AMLODIPINE 5 MG TAB PO SCH (08:46)
[2019-06-18] MEDS: ATORVASTATIN 10 MG TAB PO SCH (08:46)
[2019-06-18] MEDS: ASPIRIN EC 81 MG TAB PO SCH (08:46)
[2019-06-18] MEDS: GABAPENTIN 300 MG CAP PO SCH ×2 (08:46→21:42)
[2019-06-18] MEDS: CLOPIDOGREL 75 MG TABLET PO SCH (08:46)
--- NOTE | 2019-06-18 10:08 | P.PN ---
Date of Service: 06/17/19 Subjective Subjective: No significant changes. Absolute neutrophil count is zero. Patient is still febrile. No response to Neupogen. Will need to notify Oncology in get their opinion Review of Systems 10-point ROS is otherwise unremarkable Physical Examination - Vital Signs reviewed - Physical Exam General: Alert, Oriented x3 Respiratory: Normal air movement, Diminished, Expiratory wheezes Cardiovascular: Normal pulses, Regular rate/rhythm, Normal S1 S2 Gastrointestinal: Normal bowel sounds, Soft and benign Musculoskeletal: No clubbing, No swelling Assessment & Plan - Problems (Diagnosis) (1) Neutropenic fever secondary to left upper lobe pneumonia Current Visit: Yes Status: Acute (2) CKD stage 3 due to type 2 diabetes mellitus with anemia of CKD Current Visit: Yes Status: Chronic (3) CLL (chronic lymphocytic leukemia) Current Visit: Yes Status: Chronic (4) Diabetes Current Visit: Yes Status: Chronic (5) History of coronary artery disease Current Visit: Yes Status: Chronic (6) Hypertension Current Visit: Yes Status: Chronic Physician Review: Patient Assessed, Agree with Above Assessment and Plan Physician Review Additional Text: Plan: - continue abx - ANC=0; no response to Neupogen; - anemia of CKD; dosed Epogen - c/w neupogen; awaitng BM response; awaiting oncology recommendation - c/w BP meds - will keep patient until ANC increases and absence of fever for 24 hrs
--- NOTE | 2019-06-18 12:22 | P.PN ---
Date of Service: 06/18/19 Subjective Subjective: Patient with no significant changes w/ lab findings. Will consult Oncology. Appears bone marrow is not responding to Neupogen. May need transfer as well. Review of Systems 10-point ROS is otherwise unremarkable Physical Examination - Vital Signs reviewed - Physical Exam General: Alert, Oriented x3 Respiratory: Normal air movement, Diminished, Expiratory wheezes Cardiovascular: Normal pulses, Regular rate/rhythm, Normal S1 S2 Gastrointestinal: Normal bowel sounds, Soft and benign Musculoskeletal: No clubbing, No swelling Assessment & Plan - Problems (Diagnosis) (1) Neutropenic fever secondary to left upper lobe pneumonia Current Visit: Yes Status: Acute (2) CKD stage 3 due to type 2 diabetes mellitus with anemia of CKD Current Visit: Yes Status: Chronic (3) CLL (chronic lymphocytic leukemia) Current Visit: Yes Status: Chronic (4) Diabetes Current Visit: Yes Status: Chronic (5) History of coronary artery disease Current Visit: Yes Status: Chronic (6) Hypertension Current Visit: Yes Status: Chronic Physician Review: Patient Assessed, Agree with Above Assessment and Plan Physician Review Additional Text: Plan: - continue broad-spectrum antibiotic coverage - ANC=0; no response to Neupogen; possible transfer - anemia of CKD; dosed Epogen - c/w neupogen; awaitng BM response; awaiting oncology recommendation - c/w BP meds - will keep patient until ANC increases to 500 or greater and absence of fever for 24 hrs
--- NOTE | 2019-06-18 12:33 | RAD REPORT ---
EXAM DESCRIPTION: RAD - Chest Pa And Lat (2 Views) - 06/18/2019 12:24 pm CLINICAL HISTORY: Follow up pneumonia, neutropenia COMPARISON: Two view chest June 15, CT chest June 12 TECHNIQUE: PA and lateral views of the chest were obtained. FINDINGS: The lungs are fibrotic as a baseline. Consolidated parenchyma seen in the mid and upper po rtions of the left upper lobe have partially cleared since the June 15 imaging. There is mild to moderate infiltrate remaining. No progressive process. Heart size is normal and central vasculature is within normal limits. No pleural effusion or pneumothorax seen. No acute bony finding noted. N o aortic abnormality. IMPRESSION: Significant but incomplete clearing of the left upper lobe infiltrative process since e June 15 imaging. Continued follow-up is needed to assure complete clearing.
--- NOTE | 2019-06-18 12:45 | P.CNS ---
Date of Consult: 06/18/19 Primary Care Provider: Dr. Hi([place]); Oncology-Dr. Howard Chief Complaint: Neutropenia, fever, generalized weakness History of Present Illness: Patient is 74 years of age id treated for leukemia developed sudden onset of fever chills and left-sided chest pain admitted with a diagnosis of left-sided pneumonia denies any hemoptysis doing better neutropenic no prior history of any pulmonary complaints Allergies No Known Allergies Allergy (Verified 06/11/19 04:56) Home Medications: Atorvastatin Calcium 1 tab PO DAILY 12/12/18 Gabapentin 1 tab PO BID 12/12/18 Tamsulosin [Flomax*] 1 tab PO DAILY 12/12/18 Amlodipine [Norvasc*] 2 tab PO DAILY 06/11/19 Aspirin [Adult Aspirin Regimen] 81 mg PO DAILY 06/11/19 Clopidogrel Bisulfate [Plavix*] 75 mg PO DAILY 06/11/19 Insulin Degludec [Tresiba Flextouch U-100] 50 unit SQ DAILY 06/11/19 Nitroglycerin 0.4 mg SL PRN PRN 06/11/19 - Past Medical/Surgical History Diabetic: Yes -: Diabetes mellitus type 2, insulin dependent -: Hypertension -: CAD with prior stents -: Hyperlipidemia -: CLL/SLL -: Chronic renal disease, stage III -: Heart catheterization with 4 stents -: Appendectomy -: Right knee replacement Psychosocial/ Personal History: Patient is . He has no children - Family History Father Medical History: Cancer Mother Medical History: Cancer - Social History Alcohol use: No CD- Drugs: No Caffeine use: Yes Place of Residence: Home Review of Systems 10-point ROS is otherwise unremarkable General: Weakness Respiratory: Cough, Shortness of Breath Cardiovascular: Chest Pain Physical Examination Temp Pulse Resp BP Pulse Ox 98.8 F 76 18 149/67 H 94 06/18/19 08:00 06/18/19 08:46 06/18/19 08:00 06/18/19 08:46 06/18/19 08:00 General: Alert, Oriented x3 HEENT: Atraumatic Neck: Supple Respiratory: Clear to auscultation bilaterally Cardiovascular: No edema, Regular rate/rhythm, Normal S1 S2 Gastrointestinal: Normal bowel sounds, Soft and benign Laboratory Data (last 24 hrs) 06/18/19 04:14: WBC 1.7 L*, Hgb 8.0 L, Hct 24.3 L, Plt Count 115 L - Problems (1) Pneumonia Current Visit: Yes Status: Acute Plan: Patient is 74 years of age admitted with sudden onset of left-sided chest pain fever chills infiltrate clinical symptoms and chest x-ray suspicious for acute community-acquired pneumonia baseline chronic renal failure cultures negative vital signs oxygenation stable can change to p.o. levofloxacin plan for discharge follow up with me in 1 weeks for Plavix for now may need a bronchoscopy Qualifiers: Pneumonia type: due to unspecified organism Laterality: left
--- NOTE | 2019-06-18 14:01 | P.PN ---
Subjective Date of Service: 06/18/19 Primary Care Provider: Dr. Hi([place]); Oncology-Dr. Howard Chief Complaint: Neutropenia, fever, generalized weakness Subjective: Improving, Doing well Physical Examination - Vital Signs Temperature: 98.8 F Blood Pressure: 149/67 Pulse: 76 Respirations: 18 Pulse Ox (%): 94 - Physical Exam General: Alert, In no apparent distress, Oriented x3 HEENT: Atraumatic Neck: Supple Respiratory: Clear to auscultation bilaterally, Normal air movement Cardiovascular: Normal pulses, Regular rate/rhythm Gastrointestinal: Normal bowel sounds, Soft and benign, Non-distended Neurological: Normal speech, Normal strength at 5/5 x4 extr, Normal tone, Normal affect - Studies Laboratory Data (last 24 hrs) 06/18/19 04:14: WBC 1.7 L*, Hgb 8.0 L, Hct 24.3 L, Plt Count 115 L Medications List Reviewed: Yes Assessment & Plan Discharge Plan: Home Plan to discharge in: 24 Hours Physician Review Additional Text: Impression: Neutropenic fever secondary to left upper lobe pneumonia Hypoglycemia resolved Acute on chronic renal disease stage III Anemia of chronic disease Hypertension History of CLL on chemotherapy CAD Hyperlipidemia GERD Plan: Continue antibiotic therapy and Neupogen. Absolute neutrophil count still 0. Case discussed with oncology. Pulmonology consulted. Pulmonology recommends no further workup. Community-acquired pneumonia likely. No need for bronchoscopy. Anticipate discharge once absolute neutrophil count improved and patient without fever. Will discuss further with Oncology. Time Spent Managing Pts Care (In Minutes): 55
[2019-06-18] MEDS: Levofloxacin500mg IV 500 MG/100 ML BAG IV SCH (17:14)
--- NOTE | 2019-06-18 18:20 | CON ---
History Of Present Illness: This is a 73-year-old male with recent diagnosis of chronic lymphocytic leukemia 6 months ago, for which patient is getting chemotherapy by a local oncologist. Patient comi ng in with fever, pneumonia and pancytopenia. He was started on Levaquin and the patient is improvin g since yesterday. Denies any headache, nausea, vomiting, chest pain, abdominal pain, constipation, or diarrhea. Past Medical History: Includes CLL, hypercholesterolemia, diabetes mellitus, benign prostatic hypert rophy. Social History: Nonsmoker, nondrinker. Family History: Noncontributory. Medications: Levaquin. See MAR for other medications. Allergies: NO KNOWN DRUG ALLERGIES. Review of Systems: 10-point review was performed. Physical Examination: General: This is a 74-year-old male, lying in bed, not in any acute cardiopulmonary distress. Vital Signs: Temperature 98.8, pulse 76, respirations 18, blood pressure 149/67. HEENT: Unremarkable. Neck: Supple. Lungs: Basal crackles. Heart: S1, S2, regular. Abdomen: Soft, nontender. Bowel sounds present. Extremities: No edema. Laboratory Data: Shows WBC 1.7, hemoglobin 8, platelets are 115. Chemistry shows sodium 133, potass ium 4.3, chloride 103, bicarb 21, BUN 39, creatinine 1.8, glucose is 148, albumin is 2.3. Cultures a re negative for up to date. Assessment And Plan: 74-year-old male with recent diagnosis of chronic lymphocytic leukemia, coming in with pancytopenia, fever and pneumonia, currently being treated with Levaquin. Consider switching it to cefepime 1 g q.12 hours and continue current management. Monitor for neutropenia, neutropenic fever, pending culture results. We will follow the patient closely. Thank you Dr. Arce and Dr. Pulido for consult. NF/MODL Voice ID: [id number] Report ID: [id number]
[2019-06-19] MEDS: IPRATROPIUM BROM 0.5MG/2.5ML NEB SCH ×2 (02:15→08:20)
[2019-06-19] MEDS: METOPROLOL TAR 25 MG TAB PO SCH ×2 (05:11→18:22)
[2019-06-19 06:15] LABS: Magnesium 2.4 mg/dL (1.8-2.4); Potassium 4.8 mmol/L (3.5-5.1)
[2019-06-19 06:27] LABS: Absolute Lymphocytes (CBC) 1.3 K/uL (0.7-4.9); Basophils % 0.3 % (0-1.3); Hematocrit 24.9 % (39.6-49.0); Lymphocytes % 90.9 % (15.3-44.8); RBC Red Blood Cell Count 2.84 M/uL (4.33-5.43)
[2019-06-19] MEDS: ALBUTEROL 2.5 MG/3 ML NEB SOL NEB PRN (08:20)
[2019-06-19] MEDS: AMLODIPINE 5 MG TAB PO SCH (08:22)
[2019-06-19] MEDS: ASPIRIN EC 81 MG TAB PO SCH (08:23)
[2019-06-19] MEDS: TAMSULOSIN 0.4 MG SR CAP PO SCH (08:23)
[2019-06-19] MEDS: ATORVASTATIN 10 MG TAB PO SCH (08:23)
[2019-06-19] MEDS: FAMOTIDINE 20 MG TAB PO SCH (08:23)
[2019-06-19] MEDS: GABAPENTIN 300 MG CAP PO SCH ×2 (08:23→20:16)
[2019-06-19] MEDS: CLOPIDOGREL 75 MG TABLET PO SCH (08:23)
[2019-06-19] MEDS ORDERED: CEFEPIME 1 GM/VIAL IV SCH (09:00)
[2019-06-19] MEDS ORDERED: CEFEPIME/SWI 1gm 10 ML IV SCH (09:00)
[2019-06-19 09:24] LABS: Blood Morphology Comment NOTED (NOT SEEN); Ovalocytes 2+; Platelet Estimate DECR; Rouleau SLIGHT
[2019-06-19] MEDS: TBO-FILGRASTIM 480 MCG/0.8 ML SYR SQ SCH (10:00)
--- NOTE | 2019-06-19 11:00 | P.PN ---
Date of Service: 06/18/19 (Hematology/Oncology) Subjective: Patient known to me from clinic for his h/o Chronic lymphocytic leukemia/ small lymphocytic lymphoma. He has been on ibrutinib (oral luisa tyrosine kinase inhibitor) since Jan 2019 with good response in disease, improvement in cytpenias and reduction in lymphadenopathy. On 05/25/19, he c/o recurrent chest/ angina pains and due to concerns of cardiovascular side effects of ibrutinib, plan was to hold ibrutinib for a few weeks and assess his symptoms. Given his significant CAD with multiple stents, he was currently undergoing medical management (possible cath) with his fine hairer Dr Fontaine. On 06/11/19, he presented to ER and was noted to have a AMMY pneumonia, in severe leucopenia with WBC 2600 with predominantly lymphocytes of 92% severe neutropenia with ANC of 0. Hb between 8-9gm and plt gradually downtrending currently ~110,000. He is on broad spectrum antibiotics for the pneumonia initially started with levaquin and now transitioned to cefepime. He has baseline CKD with renal functions gradually worsening currently BUN/cr 45/1.9 Objective: When seen today, he seems quite comfortable, denies any discomfort and in reverse isolation. Feels much better since admission. Remains afebrile for >24 hours. EXAM: Hemodynamically stable Gen: Appears compfrtable, lying in bed with , and 3 other family members at bedside. HEENT: A/NC, MMM, throat clear RS: CTA CVS: S1S2, no added sounds Abd: Soft, NT,ND, NO HS Neuro: AAOx3, NFND Ext: No edema, no calf tenderness Labs: WBC 1.4/ ANC 0/ Lymphocytes 92% Hb 8g Plt 109 Bun/cr 45/1.[address] chest 7cm AMMY opacity Assessment/ Recommendations: 74 year old man with significant other co-morbidities, including CAD s/p multiple PCI, PVD, HTN, and CLL/SLL currently admitted with neutropenic fever, pancytopenia and AMMY pneumonia. 1. 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 BM in December 2018 with 95% BM involvement with CLL Patient currently severely neutropenic with ANC of 0 and no response with filgrastim 480mcg daily given atleast for the past 5 days. WBC 1.4 today with predominantly > 90% lymphocytes. On 05/25/19 his wbc 23K, Lymphocytes 78%, ANC 4.1; Hb 9.2g; plt 151,000. He has been off ibrutinib since. He has become pancytopenic in 3 weeks. Likely, his BM is infiltrated with CLL making poor response to filgrastim. > Given he had a previously good response to ibrutinib with improvement in cytopenias, I am inclining to re-start him back on ibrutinib 140mg as an attempt to decrease disease load and may be improve the severe cytopenias. >Recommend broad spectrum coverage with antibacterial, antiviral and antifungal antibiotics, renal dose adjusted. > c/w daily filgrastim 480mcg until ANC > 2000 2. Leucopenia: as per #1 3. Anemia: From underlying neoplasm and also CKD >Daily cbc >Transfuse PRBC if Hb less than 8gm (as he has CAD) 4. Thrombocytopenia: Gradually trending down- partly from sepsis, antibitocis and also underlying progression of neoplasm. No need for any intervention for now. Will consider single donor plt transfusion if plt count < 15,000, or if bleeding when plt count less than 50,000 5. 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 This is part of the CLL disease as well. Will consider IVIG if needed, but to keep in bibi risk of possible renal failure/ other etc. 6. Pneumonia: On cefepime 1g q12h. ID and Pulmonary recommendations appreciated. >If no improvement, he might need bronchoscopy to assess disease. >Get sputum cultures/ sensitivity. To keep in mind, risk of opportunistic infections while on ibrutinib. 7. Acute on CKD: Recommend renal input as he is on multiple antibiotics with worsening renal functions. Please renal dose adjust and monitor renal functions while on antibiotics. We will continue to follow closely. Plan discussed with family and house staff. Also discussed advanced care directives, goals of care with patient and his family. He has expressed to have DNR status. Dr Arce will arrange SW discussion. Plan discussed at length with Dr Arce who was also part of the discussion today with family.
--- NOTE | 2019-06-19 11:42 | P.PN ---
Subjective Date of Service: 06/19/19 Primary Care Provider: Dr. Hi([place]); Oncology-Dr. Howard Chief Complaint: Neutropenia, fever, generalized weakness Subjective: Improving, Doing well Physical Examination - Vital Signs Temperature: 98.3 F Blood Pressure: 130/60 Pulse: 76 Respirations: 20 Pulse Ox (%): 97 - Physical Exam General: Alert, In no apparent distress, Oriented x3, Cooperative HEENT: Atraumatic Neck: Supple Respiratory: Clear to auscultation bilaterally, Normal air movement Cardiovascular: Normal pulses, Regular rate/rhythm Gastrointestinal: Normal bowel sounds, Soft and benign, Non-distended Neurological: Normal speech, Normal strength at 5/5 x4 extr, Normal tone, Normal affect - Studies Laboratory Data (last 24 hrs) 06/19/19 05:23: Sodium 133 L, Potassium 4.8, BUN 45 H, Creatinine 1.90 H, Glucose 203 H, Magnesium 2.4 06/19/19 05:23: WBC 1.4 L* D, Hgb 8.1 L, Hct 24.9 L, Plt Count 109 L Microbiology Data (last 24 hrs): 06/18/19 08:07 Blood - Blood Anaerobic Blood Culture - Final Medications List Reviewed: Yes Assessment & Plan Discharge Plan: Home Plan to discharge in: 48 Hours Physician Review Additional Text: Impression: Neutropenic fever secondary to left upper lobe pneumonia Hypoglycemia resolved Acute on chronic renal disease stage III Anemia of chronic disease Hypertension History of CLL on chemotherapy CAD Hyperlipidemia GERD Plan: Neutropenic fever secondary to left upper lobe pneumonia: Spoke with oncology and pulmonology. Pulmonology recommends to continue antibiotic therapy. No need for bronchoscopy. Oncology recommends IV antibiotic therapy. Oncology also recommends starting antiviral and antifungal treatment due to neutropenia. Continue medication for neutropenia. Continue to monitor CBC. Oncology recommends nephrology consultation to further monitor and address his chronic renal disease as the patient is on multiple medications. Oncology also plans to restart chemotherapy medication. Will monitor closely. Anticipate discharge once neutrophil count significantly improved.. Hypoglycemia resolved: Encourage oral intake. Acute on chronic renal disease stage III: Nephrology consulted to further address and evaluate. Will adjust medications accordingly. Anemia of chronic disease: Will monitor closely. Hypertension: Continue medication. History of CLL on chemotherapy: Oncology plans to restart chemotherapy medication at a lower dose. CAD: Continue medication. Hyperlipidemia: Continue medication. GERD: Continue medication. Time Spent Managing Pts Care (In Minutes): 55
--- NOTE | 2019-06-19 14:48 | PN ---
Subjective: Patient is lying in bed, family by the bedside, not in any acute distress. Objective: Vital Signs: Temperature 98, pulse 76, respiration 16, blood pressure 130/60. Lungs: Basal crackles. Heart: S1, S2. Regular. Abdomen: Soft, nontender. Bowel sounds present. Extremities: No edema. Laboratory Data: WBC 1.4, hemoglobin 8.1, platelets are 109. Chemistry shows sodium 133, potassium 4.8, chloride 104, bicarb 21, BUN 45, creatinine 1.9, glucose is 203. Current Medications: Include cefepime, Valtrex, fluconazole. Microbiology Data: Blood culture is growing no growth. Assessment And Plan: Patient with pancytopenia with significant history of chronic lymphocytic leuke cecil. Fever has resolved. Pneumonia, continue on cefepime for now. Monitor for neutropenic fever. NF/MODL Voice ID: [id number] Report ID: [id number]
[2019-06-19] MEDS ORDERED: ALBUTEROL 2.5 MG/3 ML NEB SOL NEB PRN (15:00)
[2019-06-19] MEDS ORDERED: GLUCAGON 1 MG/VIAL IM PRN (18:23)
[2019-06-19] MEDS ORDERED: D50W 25 GM/50 ML SYRINGE/VIAL IV PRN (18:23)
--- NOTE | 2019-06-19 18:28 | P.PN ---
Subjective Date of Service: 06/19/19 Primary Care Provider: Dr. Hi([place]); Oncology-Dr. Howard Chief Complaint: Neutropenia, fever, generalized weakness Subjective: Improving Physical Examination - Vital Signs Temperature: 98.2 F Blood Pressure: 156/69 Pulse: 77 Respirations: 20 Pulse Ox (%): 100 - Physical Exam General: Alert, In no apparent distress, Oriented x3, Cooperative HEENT: Atraumatic Neck: Supple Respiratory: Clear to auscultation bilaterally, Normal air movement Cardiovascular: Normal pulses, Regular rate/rhythm Gastrointestinal: Normal bowel sounds Musculoskeletal: No erythema, No tenderness, No warmth Integumentary: No tenderness/swelling, No erythema, No warmth, No cyanosis Neurological: Normal speech, Normal strength at 5/5 x4 extr, Normal tone - Studies Laboratory Data (last 24 hrs) 06/19/19 05:23: Sodium 133 L, Potassium 4.8, BUN 45 H, Creatinine 1.90 H, Glucose 203 H, Magnesium 2.4 06/19/19 05:23: WBC 1.4 L* D, Hgb 8.1 L, Hct 24.9 L, Plt Count 109 L Microbiology Data (last 24 hrs): 06/18/19 08:07 Blood - Blood Anaerobic Blood Culture - Final Medications List Reviewed: Yes Assessment & Plan Discharge Plan: Home Plan to discharge in: 48 Hours Physician Review Additional Text: Impression: Neutropenic fever secondary to left upper lobe pneumonia Hypoglycemia resolved Acute on chronic renal disease stage III Anemia of chronic disease Hypertension History of CLL on chemotherapy CAD Hyperlipidemia GERD Plan: Neutropenic fever secondary to left upper lobe pneumonia: Spoke with oncology and pulmonology at length with plan of care. Due to no change in neutropenia, will adjust IV antibiotic therapy. Will add medication for antifungal and antiviral. Oncology and I discussed plan of care with patient. Options including restarting chemotherapy medication. Oncology recommends to restart chemotherapy at this time. Will recheck blood cultures, sputum cultures. Will continue to monitor closely. Advanced directives addressed with the patient. Patient wishes to be do not resuscitate. Hypoglycemia resolved: Encourage oral intake. Acute on chronic renal disease stage III: Nephrology consulted to further address and evaluate. Will adjust medications accordingly. Anemia of chronic disease: Will monitor closely. Hypertension: Continue medication. History of CLL on chemotherapy: Oncology discuss plan of care with patient. Patient still with neutropenia. CLL still compromising patient. Continue as above. If still with poor response patient may require hospice. Advanced directives address in detail. Patient is do not resuscitate. CAD: Continue medication. Hyperlipidemia: Continue medication. GERD: Continue medication. Time Spent Managing Pts Care (In Minutes): 55
[2019-06-19] MEDS: VALACYCLOVIR 500 MG TAB PO SCH (20:16)
--- NOTE | 2019-06-19 20:54 | P.CNS ---
Date of Consult: 06/19/19 Reason for Consult: haydee Primary Care Provider: Dr. Hi([place]); Oncology-Dr. Howard Chief Complaint: Neutropenia, fever, generalized weakness History of Present Illness: A 74-year-old with PMHX of DM with neuropathy, CKD III baseline Cr ~1.5 , HLD CAD S/p PCI and CLL Pt presented with fever , weakness and cough pt was complaining of flu like symptoms associated with fever , on admission Cr was 1.9 , improved and now elevated no nsaid or contrast exposure pt also denied chest pain, palpitation, nausea or vomiting Allergies No Known Allergies Allergy (Verified 06/11/19 04:56) Home Medications: Atorvastatin Calcium 1 tab PO DAILY 12/12/18 Gabapentin 1 tab PO BID 12/12/18 Tamsulosin [Flomax*] 1 tab PO DAILY 12/12/18 Amlodipine [Norvasc*] 2 tab PO DAILY 06/11/19 Aspirin [Adult Aspirin Regimen] 81 mg PO DAILY 06/11/19 Clopidogrel Bisulfate [Plavix*] 75 mg PO DAILY 06/11/19 Insulin Degludec [Tresiba Flextouch U-100] 50 unit SQ DAILY 06/11/19 Nitroglycerin 0.4 mg SL PRN PRN 06/11/19 - Past Medical/Surgical History Diabetic: Yes -: Diabetes mellitus type 2, insulin dependent -: Hypertension -: CAD with prior stents -: Hyperlipidemia -: CLL/SLL -: Chronic renal disease, stage III -: Heart catheterization with 4 stents -: Appendectomy -: Right knee replacement Psychosocial/ Personal History: Patient is . He has no children - Family History Father Medical History: Cancer Mother Medical History: Cancer - Social History Alcohol use: No CD- Drugs: No Caffeine use: Yes Place of Residence: Home Review of Systems General: Weakness Eyes: Unremarkable ENT: Unremarkable Respiratory: Unremarkable Cardiovascular: Unremarkable Gastrointestinal: Unremarkable Musculoskeletal: Unremarkable Neurological: Unremarkable Physical Examination Temp Pulse Resp BP Pulse Ox 98.2 F 77 20 156/69 H 100 06/19/19 18:27 06/19/19 18:27 06/19/19 18:27 06/19/19 18:27 06/19/19 18:27 General: In no apparent distress, Oriented x3 HEENT: Atraumatic, Normocephalic Neck: Supple, Without JVD or thyroid abnormality Respiratory: Clear to auscultation bilaterally, Normal air movement Cardiovascular: No edema, Regular rate/rhythm, Normal S1 S2, No gallops, No rubs , No murmurs Gastrointestinal: Normal bowel sounds, Soft and benign, Non-distended, No ascites, No tenderness, No masses Musculoskeletal: No swelling Integumentary: No rashes, No breakdown Neurological: Normal gait, Normal speech Laboratory Data (last 24 hrs) 06/19/19 05:23: Sodium 133 L, Potassium 4.8, BUN 45 H, Creatinine 1.90 H, Glucose 203 H, Magnesium 2.4 06/19/19 05:23: WBC 1.4 L* D, Hgb 8.1 L, Hct 24.9 L, Plt Count 109 L Conclusions/Impression: HAYDEE on CKD III baseline Cr ~1.5 liekly due to dehydration will start IVF renal US renal dose medications UA +1 prot and bld Neutroprnic fever on Granix on cefepime, diflucan, and valtrex ID and hematology on [place] CLL with pancytopenia Might start on IVIG hematology on board
[2019-06-19] MEDS: INSULIN -REGULAR HUMAN 50 UNIT/0.5 ML ML SQ SCH (21:45)
[2019-06-19] MEDS: NA CHLORIDE 0.9% 1,000 ML IV SCH (21:46)
[2019-06-20] MEDS: METOPROLOL TAR 25 MG TAB PO SCH ×2 (05:40→18:48)
[2019-06-20] MEDS: ACETAMINOPHEN 500 MG TAB PO PRN (05:41)
[2019-06-20 06:00] LABS: Magnesium 2.4 mg/dL (1.8-2.4); Potassium 5.4 mmol/L (3.5-5.1)
[2019-06-20 06:04] LABS: Absolute Lymphocytes (CBC) 2.3 K/uL (0.7-4.9); Hematocrit 23.9 % (39.6-49.0); Lymphocytes % 89.7 % (15.3-44.8); MPV 9.6 fL (7.6-11.3); RBC Red Blood Cell Count 2.71 M/uL (4.33-5.43)
[2019-06-20 06:24] LABS: Urine Protein/Creatinine Ratio 0.27 ratio (<0.15)
[2019-06-20] MEDS: INSULIN -REGULAR HUMAN 50 UNIT/0.5 ML ML SQ SCH ×4 (07:30→21:17)
[2019-06-20] MEDS ORDERED: IMBRUVICA 140 MG PO SCH (09:00)
[2019-06-20] MEDS: TBO-FILGRASTIM 480 MCG/0.8 ML SYR SQ SCH (10:21)
[2019-06-20] MEDS: AMLODIPINE 5 MG TAB PO SCH (10:21)
[2019-06-20] MEDS: FLUCONAZOLE 100 MG TAB PO SCH (10:21)
[2019-06-20] MEDS: FLUDROCORTISONE 0.1 MG TAB PO SCH (10:21)
[2019-06-20] MEDS: VALACYCLOVIR 500 MG TAB PO SCH (10:22)
[2019-06-20] MEDS: CLOPIDOGREL 75 MG TABLET PO SCH (10:22)
[2019-06-20] MEDS: FAMOTIDINE 20 MG TAB PO SCH (10:22)
[2019-06-20] MEDS: ASPIRIN EC 81 MG TAB PO SCH (10:22)
[2019-06-20] MEDS: CEFEPIME/SWI 1gm 10 ML IV SCH (10:23)
[2019-06-20] MEDS: ATORVASTATIN 10 MG TAB PO SCH (10:23)
[2019-06-20] MEDS: TAMSULOSIN 0.4 MG SR CAP PO SCH (10:23)
[2019-06-20] MEDS: GABAPENTIN 300 MG CAP PO SCH ×2 (10:23→21:13)
[2019-06-20 10:28] LABS: Blood Morphology Comment NOTED (NOT SEEN); Platelet Estimate DECR
[2019-06-20 10:29] LABS: Ovalocytes 2+
[2019-06-20 11:28] LABS: RBC Red Blood Cell Count 2.84 M/uL (4.33-5.43)
[2019-06-20] MEDS: NA CHLORIDE 0.9% 1,000 ML IV SCH (12:02)
--- NOTE | 2019-06-20 14:12 | P.PN ---
Subjective Date of Service: 06/20/19 Primary Care Provider: Dr. Hi([place]); Oncology-Dr. Howard Chief Complaint: Neutropenia, fever, generalized weakness Subjective: Doing well Physical Examination - Vital Signs Temperature: 98.1 F Blood Pressure: 148/67 Pulse: 68 Respirations: 18 Pulse Ox (%): 100 - Physical Exam General: Alert, In no apparent distress, Cooperative HEENT: Atraumatic Neck: Supple Respiratory: Clear to auscultation bilaterally, Normal air movement Cardiovascular: Normal pulses, Regular rate/rhythm Gastrointestinal: Normal bowel sounds, Soft and benign, Non-distended - Studies Laboratory Data (last 24 hrs) 06/20/19 11:10: WBC Cancelled, Hgb Cancelled, Hct Cancelled, Plt Count Cancelled 06/20/19 11:10: Hgb 8.2 L, Hct 25.0 L 06/20/19 08:32: Potassium Cancelled 06/20/19 05:23: Sodium 135 L, Potassium 5.4 H, BUN 37 H, Creatinine 1.72 H, Glucose 181 H, Magnesium 2.4 06/20/19 05:23: WBC 2.6 L D, Hgb 7.8 L*, Hct 23.9 L, Plt Count 100 L Microbiology Data (last 24 hrs): 06/19/19 05:15 Sputum Gram Stain - Final 06/18/19 08:07 Blood - Blood Anaerobic Blood Culture - Final Medications List Reviewed: Yes Assessment & Plan Discharge Plan: Home Plan to discharge in: 48 Hours Physician Review Additional Text: Impression: Neutropenic fever secondary to left upper lobe pneumonia Diabetes mellitus type 2 insulin dependent Acute on chronic renal disease stage III with hyperkalemia Anemia of chronic disease Hypertension History of CLL on chemotherapy CAD Hyperlipidemia GERD Plan: Neutropenic fever secondary to left upper lobe pneumonia: Spoke with oncology and pulmonology at length with plan of care yesterday. Due to no change in neutropenia, patient remains on IV antibiotic therapy, antifungal and antiviral medication as well. Will continue to monitor and adjust accordingly. Neutropenia still present with absolute neutrophil of 0. Continue Granix. Will monitor hemoglobin. Will maintain hemoglobin above 8.0. Chemotherapy has been restarted. Continue monitor closely. Diabetes mellitus type 2 insulin-dependent: Encourage oral intake. Will restart basal insulin. Continue sliding scale. Acute on chronic renal disease stage III with hyperkalemia: Will recheck potassium. If still elevated will provide Kayexalate. IV fluids adjusted. Await further recommendations by nephrology. Medications adjusted according to renal dosed Anemia of chronic disease: Will monitor closely. Hypertension: Continue medication. History of CLL on chemotherapy: Patient now on chemotherapy medication. Continue monitor closely. Maintain hemoglobin above 8.0. Continue monitor neutropenia. CAD: Continue medication. Hyperlipidemia: Continue medication. GERD: Continue medication. Time Spent Managing Pts Care (In Minutes): 55
[2019-06-20] MEDS ORDERED: VALACYCLOVIR 500 MG TAB PO SCH (15:00)
[2019-06-20] MEDS: IMBRUVICA 140 MG PO SCH (16:01)
--- NOTE | 2019-06-20 20:05 | RAD REPORT ---
EXAM DESCRIPTION: US - Renal Ultrasound-Complete - 06/20/2019 6:34 pm CLINICAL HISTORY: Acute kidney injury COMPARISON: None. FINDINGS: The right kidney measures approximately 11 x 5 x 5 cm. The left kidney measures approxima tely 11 x 5 x 5 cm. Cortical thickness is normal. Echogenicity is also normal. Lobulated contours are seen as a normal variant. No hydronephrosis or suspicious renal mass. A small 7 mm cyst is present l ower pole right kidney. No bladder wall thickening or mass. No intraluminal stone or mass. Bladder volume was 180 milliliters . IMPRESSION: No hydronephrosis or suspicious renal mass. No other significant findings.
[2019-06-20] MEDS: INSULIN GLARGINE 100 UNITS/ML SQ SCH (21:00)
[2019-06-21 01:04] LABS: Bilirubin Total 0.8 mg/dL (0.2-1.0); Potassium 4.7 mmol/L (3.5-5.1); Protein, Total 4.7 g/dL (6.4-8.2)
[2019-06-21] MEDS: NA CHLORIDE 0.9% 1,000 ML IV SCH (01:04)
--- NOTE | 2019-06-21 03:02 | PN ---
Date of Progress Note: 06/20/2019 Chief Complaint: Diabetes mellitus with renal manifestation, chronic kidney disease stage 3. Baseli ne creatinine level 1.5. Patient has history of coronary artery disease, previous intervention for coronary artery disease wit h PCI. Patient presented to the hospital with fever, weakness and cough. On admission, creatinine l evel was 1.9. Patient was found to have acute on chronic kidney injury, nonoliguric. Renal function has not improved significantly over the last 24 hours. Patient has nonoliguric urine output for tod ay. He was found to have mild hyperkalemia and was started on low-potassium diet. Renal ultrasound was done to rule out hydronephrosis. There is no urinary retention. Renal ultrasound was negative f or kidney mass, hydronephrosis. Review of Systems: Denies fever, chills. Physical Examination: Lungs: Few crackles at bases. Rhonchi present. Heart: S1, S2. No pericardial friction rub. Abdomen: Soft, benign. Extremities: No edema. Laboratory Data: WBC 2.6, hemoglobin 7.8, platelet count 100,000. Potassium was today 5.4, sodium 1 35, chloride 106, CO2 23, BUN 37, creatinine 1.72, glucose 181, calcium 7.6, magnesium 2.4, recheck p otassium was 4.9, glucose 240. Urine protein creatinine ratio 0.27. Urinalysis showed a specific gr avity 1.020, blood 1+, nitrites negative, bilirubin negative, wbc less than 5, rbc less than 5. Impression And Plan: Acute on chronic kidney injury, likely due to prerenal azotemia and hyperkalemi a, improved with diet modification. Patient was also started on Florinef. Renal ultrasound did not show hydronephrosis. Urinalysis was positive 1+ blood. Plan is to check CK level to rule out rhabdo myolysis. Continue IV fluids to prevent renal hypoperfusion and to treat acute kidney injury. The p atient has chronic kidney disease stage 3. There is proteinuria present, likely patient has diabetic kidney disease. Plan is to check urine protein electrophoresis with immunofixation. Neutropenia, the patient is undergoing workup ordered by primary team. Platelet count is a slightly diminished. Recommend a hematology consult. AYESHA/YVETTE Voice ID: [id number] Report ID: [id number]
[2019-06-21] MEDS: METOPROLOL TAR 25 MG TAB PO SCH ×2 (06:00→18:00)
[2019-06-21 06:22] LABS: Magnesium 2.2 mg/dL (1.8-2.4); Potassium 4.8 mmol/L (3.5-5.1)
[2019-06-21 06:35] LABS: Absolute Lymphocytes (CBC) 3.3 K/uL (0.7-4.9); Hematocrit 21.9 % (39.6-49.0); Lymphocytes % 93.2 % (15.3-44.8); MPV 10.1 fL (7.6-11.3); RBC Red Blood Cell Count 2.51 M/uL (4.33-5.43)
[2019-06-21] MEDS: INSULIN -REGULAR HUMAN 50 UNIT/0.5 ML ML SQ SCH ×4 (07:30→20:47)
[2019-06-21] MEDS ORDERED: VALACYCLOVIR 500 MG TAB PO SCH (09:00)
[2019-06-21] MEDS: FLUCONAZOLE 100 MG TAB PO SCH (09:36)
[2019-06-21] MEDS: TAMSULOSIN 0.4 MG SR CAP PO SCH (09:36)
[2019-06-21] MEDS: TBO-FILGRASTIM 480 MCG/0.8 ML SYR SQ SCH (09:36)
[2019-06-21] MEDS: AMLODIPINE 5 MG TAB PO SCH (09:37)
[2019-06-21] MEDS: FAMOTIDINE 20 MG TAB PO SCH (09:37)
[2019-06-21] MEDS: GABAPENTIN 300 MG CAP PO SCH ×2 (09:37→21:24)
[2019-06-21] MEDS: CLOPIDOGREL 75 MG TABLET PO SCH (09:37)
[2019-06-21] MEDS: ASPIRIN EC 81 MG TAB PO SCH (09:37)
[2019-06-21] MEDS: FLUDROCORTISONE 0.1 MG TAB PO SCH (09:37)
[2019-06-21] MEDS: VALACYCLOVIR 500 MG TAB PO SCH (09:38)
[2019-06-21] MEDS: ATORVASTATIN 10 MG TAB PO SCH (09:38)
[2019-06-21] MEDS: CEFEPIME/SWI 1gm 10 ML IV SCH (09:39)
--- NOTE | 2019-06-21 11:16 | P.PN ---
Subjective Date of Service: 06/21/19 Primary Care Provider: Dr. Hi([place]); Oncology-Dr. Howard Chief Complaint: Neutropenia, fever, generalized weakness Subjective: Improving, Doing well Physical Examination - Vital Signs Temperature: 98.9 F Blood Pressure: 134/62 Pulse: 68 Respirations: 17 Pulse Ox (%): 96 - Physical Exam General: Alert, In no apparent distress, Oriented x3, Cooperative HEENT: Atraumatic Neck: Supple Respiratory: Clear to auscultation bilaterally, Normal air movement Cardiovascular: Normal pulses, Regular rate/rhythm Gastrointestinal: Normal bowel sounds, Soft and benign, Non-distended Neurological: Normal speech, Normal strength at 5/5 x4 extr, Normal tone - Studies Laboratory Data (last 24 hrs) 06/21/19 05:39: Sodium 135 L, Potassium 4.8, BUN 28 H, Creatinine 1.33 H, Glucose 165 H, Magnesium 2.2 06/21/19 05:39: WBC 3.5 L D, Hgb 7.1 L*, Hct 21.9 L, Plt Count 103 L 06/21/19 00:29: Sodium 135 L, Potassium 4.7, BUN 30 H, Creatinine 1.32 H, Glucose 191 H, Total Bilirubin 0.8, AST 19 D, ALT 73, Alkaline Phosphatase 86 06/20/19 14:30: Potassium 4.9 06/20/19 11:10: WBC Cancelled, Hgb Cancelled, Hct Cancelled, Plt Count Cancelled 06/20/19 11:10: Hgb 8.2 L, Hct 25.0 L Microbiology Data (last 24 hrs): 06/19/19 05:15 Sputum Gram Stain - Final 06/19/19 05:15 Sputum Culture & Sensitivity - Final Medications List Reviewed: Yes Assessment & Plan Discharge Plan: Home Plan to discharge in: 48 Hours Physician Review Additional Text: Impression: Neutropenic fever secondary to left upper lobe pneumonia Diabetes mellitus type 2 insulin dependent Acute on chronic renal disease stage III with hyperkalemia Anemia of chronic disease Hypertension History of CLL on chemotherapy CAD Hyperlipidemia GERD Plan: Neutropenic fever secondary to left upper lobe pneumonia: Will recheck chest x- ray today. Due to neutropenia, patient remains on IV antibiotic therapy, antifungal and antiviral medication as well. Spoke with oncology today. Will hold Neupogen. Continue chemotherapy medication. Hemoglobin low today. Will transfuse 2 units of blood. Will hold IV fluids. Continue to monitor closely. Anticipate improvement. Possible discharge in the next 1-2 days pending improvement with absolute neutrophil count. I will turn the service over to the hospitalist team tomorrow. I will go over the plan of care with him. Diabetes mellitus type 2 insulin-dependent: Encourage oral intake. Continue with n. Continue sliding scale. Acute on chronic renal disease stage III with hyperkalemia: Overall stable. Will discontinue IV fluids. Anemia of chronic disease: Hemoglobin low today. Will transfuse 2 units of blood. Maintain hemoglobin above 8.0. Hypertension: Continue medication. History of CLL on chemotherapy: Patient now on chemotherapy medication. Continue monitor closely. Maintain hemoglobin above 8.0. Continue monitor neutropenia. Spoke with hematology/oncology today. Will hold Neupogen at this time. Continue with above plan of care. CAD: Continue medication. Hyperlipidemia: Continue medication. GERD: Continue medication. Time Spent Managing Pts Care (In Minutes): 55
[2019-06-21] MEDS ORDERED: NA CHLORIDE 0.9% 250 ML ONE ×2 (13:20→19:29)
[2019-06-21] MEDS: IMBRUVICA 140 MG PO SCH (15:35)
[2019-06-21] MEDS ORDERED: FUROSEMIDE 20 MG/ 2ML VIAL IV ONE ×2 (17:38→19:43)
--- NOTE | 2019-06-21 19:17 | RAD REPORT ---
EXAM DESCRIPTION: RAD - Chest Pa And Lat (2 Views) - 06/21/2019 6:59 pm CLINICAL HISTORY: Follow up pneumonia Chest pain. COMPARISON: Chest Pa And Lat (2 Views) dated 06/18/2019; Chest Pa And Lat (2 Views) dated 06/15/2019; Chest Single View dated 06/11/2019; Chest Single View dated 12/12/2018 FINDINGS: Mild interstitial lung opacities on the left appear unchanged since comparative study. The right lung appears clear. The heart is normal in size. No displaced fractures. IMPRESSION: Stable chest since 06/18/2019 study.
[2019-06-21] MEDS: INSULIN GLARGINE 100 UNITS/ML SQ SCH (21:31)
--- NOTE | 2019-06-21 23:53 | PN ---
Date of Progress Note: 06/21/2019 Chief Complaint: Diabetes mellitus with renal manifestation, chronic kidney disease stage 3. History: Patient developed acute on chronic kidney injury, improving with IV fluids. Patient has nonoliguric urine output. Renal function has improved somewhat over the last 48 hours. Renal ultrasound was done to rule out hydronephrosis. There is no urinary retention. Renal ultrasou nd is negative for kidney mass or hydronephrosis. Review of Systems: Denies headaches, vision changes. Denies PND or orthopnea. Physical Examination: Lungs: Clear to auscultation bilaterally. Heart: S1-S2. Abdomen: Soft, benign. Extremities: No edema. Laboratory Data: Hemoglobin 7.1, WBC 3.5, platelet count 103,000. Sodium 135, potassium 4.9, chlori de 107, CO2 23, BUN 28, creatinine 1.33, glucose 165. Impression And Plan: 1.Acute on chronic kidney injury. Renal function has stabilized. Creatinine improved from 2.01 to 1.33. BUN is improving from 35 to 28. Continue IV fluids. 2.Diabetes mellitus with renal manifestation. Continue insulin. 3.Generalized weakness. Workup per primary team. Patient has multiple medical problems. On arriva l to the hospital patient was found to have hyperkalemia. Potassium level has improved. Continue lo w-potassium diet. Urinalysis was positive for 1+ blood. Plan is rule out rhabdomyolysis and CK leve l was obtained. There is proteinuria pattern likely secondary to diabetic kidney disease. Plan is to check urine protein electrophoresis with immunofixation to screen for monoclonal gammopath y of unknown significance. EB/MODL Voice ID: [id number] Report ID: [id number]
[2019-06-22 01:23] LABS: Hematocrit 32.1 % (39.6-49.0)
[2019-06-22] MEDS: METOPROLOL TAR 25 MG TAB PO SCH ×2 (05:34→17:45)
[2019-06-22] MEDS: INSULIN -REGULAR HUMAN 50 UNIT/0.5 ML ML SQ SCH ×4 (07:30→20:33)
[2019-06-22 09:13] LABS: Absolute Lymphocytes (CBC) 3.4 K/uL (0.7-4.9); Basophils % 1.3 % (0-1.3); Lymphocytes % 92.3 % (15.3-44.8); MPV 9.4 fL (7.6-11.3); RBC Red Blood Cell Count 3.62 M/uL (4.33-5.43)
[2019-06-22] MEDS: CEFEPIME/SWI 1gm 10 ML IV SCH (09:15)
[2019-06-22] MEDS: VALACYCLOVIR 500 MG TAB PO SCH (09:16)
[2019-06-22] MEDS: ATORVASTATIN 10 MG TAB PO SCH (09:17)
[2019-06-22] MEDS: FLUDROCORTISONE 0.1 MG TAB PO SCH (09:17)
[2019-06-22] MEDS: FAMOTIDINE 20 MG TAB PO SCH (09:17)
[2019-06-22] MEDS: FLUCONAZOLE 100 MG TAB PO SCH (09:18)
[2019-06-22] MEDS: TAMSULOSIN 0.4 MG SR CAP PO SCH (09:18)
[2019-06-22] MEDS: AMLODIPINE 5 MG TAB PO SCH (09:18)
[2019-06-22] MEDS: GABAPENTIN 300 MG CAP PO SCH ×2 (09:18→20:33)
[2019-06-22] MEDS: ASPIRIN EC 81 MG TAB PO SCH (09:18)
[2019-06-22] MEDS: CLOPIDOGREL 75 MG TABLET PO SCH (09:19)
--- NOTE | 2019-06-22 12:03 | P.PN ---
Subjective Date of Service: 06/22/19 Primary Care Provider: Dr. Hi([place]); Oncology-Dr. Howard Chief Complaint: Neutropenia, fever, generalized weakness Subjective: Doing well Physical Examination - Vital Signs Temperature: 98.5 F Blood Pressure: 134/62 Pulse: 68 Respirations: 20 Pulse Ox (%): 98 - Physical Exam General: Alert, In no apparent distress, Oriented x3 HEENT: Atraumatic Neck: Supple Respiratory: Clear to auscultation bilaterally, Normal air movement Cardiovascular: Normal pulses, Regular rate/rhythm Neurological: Normal speech, Normal strength at 5/5 x4 extr, Normal tone, Normal affect - Studies Laboratory Data (last 24 hrs) 06/22/19 09:05: WBC 3.6 L, Hgb 10.4 L, Hct 31.0 L, Plt Count 90 L 06/22/19 00:53: Hgb 10.6 L D, Hct 32.1 L D Microbiology Data (last 24 hrs): 06/19/19 05:15 Sputum Gram Stain - Final 06/19/19 05:15 Sputum Culture & Sensitivity - Final Medications List Reviewed: Yes Assessment & Plan Discharge Plan: Home Plan to discharge in: 24 Hours Physician Review Additional Text: Impression: Neutropenic fever secondary to left upper lobe pneumonia Diabetes mellitus type 2 insulin dependent Acute on chronic renal disease stage III with hyperkalemia Anemia of chronic disease Hypertension History of CLL on chemotherapy CAD Hyperlipidemia GERD Plan: Neutropenic fever secondary to left upper lobe pneumonia: Patient clinically stable this time. Patient afebrile. No respiratory distress noted for several days. Due to neutropenia, patient remains on IV antibiotic therapy, antifungal and antiviral medication. I have been in correspondence with oncology. Granix has been discontinued. Absolute neutrophil count at 0.1. Patient has been transfused 2 units of blood. Likely discharge once absolute neutrophil count above 0.5. Will continue to discuss with Oncology. Likely discharge within the next 1-2 days. Diabetes mellitus type 2 insulin-dependent: Encourage oral intake. Continue with basal insulin. Continue sliding scale. Acute on chronic renal disease stage III with hyperkalemia: Overall stable. Anemia of chronic disease: Stable. Patient has received 2 units of blood. Maintain hemoglobin above 8.0. Hypertension: Continue medication. History of CLL on chemotherapy: Patient now on chemotherapy medication. Continue monitor closely. Maintain hemoglobin above 8.0. Continue to monitor neutropenia. Continue with above plan of care. Discharge once absolute neutrophil count above 0.1. CAD: Continue medication. Hyperlipidemia: Continue medication. GERD: Continue medication. Time Spent Managing Pts Care (In Minutes): 55
[2019-06-22] MEDS: IMBRUVICA 140 MG PO SCH (16:38)
[2019-06-22 18:52] VITALS: O2SAT 96
[2019-06-22] MEDS: INSULIN GLARGINE 100 UNITS/ML SQ SCH (20:33)
--- NOTE | 2019-06-22 21:41 | P.PN ---
Date of Service: 06/22/19 (Hem/Onc) Please see my note from 06/19/2019 for details on patient's CLL history, presentation and treatment plan. When seen today, he seems quite comfortable, denies any discomfort and in reverse isolation. Feels much better since admission. Remains afebrile for >24 hours. He was restarted back on ibrutinib 140mg daily since 06/19/19. Received 2 PRBC 06/21/19 Improvement in pneumonia. Has remained afebrile. On broad spectrum antibiotics. Improvement in renal functions. EXAM: Hemodynamically stable Gen: Appears compfrtable, lying in bed, talking over phone HEENT: A/NC, MMM, throat clear RS: CTA CVS: S1S2, no added sounds Abd: Soft, NT,ND, NO HS Neuro: AAOx3, NFND Ext: No edema, no calf tenderness Labs and imaging reviewed. Assessment/ Recommendations: 74 year old man with significant other co-morbidities, including CAD s/p multiple PCI, PVD, HTN, and CLL/SLL currently admitted with neutropenic fever, pancytopenia and AMMY pneumonia. 1. 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 BM in December 2018 with 95% BM involvement with CLL Started back on ibrutinib with slight improvement/ uptrend in WBC and ANC. Smear reviewed. Though smear packed with matural CLL lymphocytes, a few atypical lymphocytes noted. I am awaiting flow cytometry report to make sure no transformation. C/w broad spectrum antibiotics and reverse isolation. Will follow up ANC tomorrow and likely decide on discharge based on labs, flow cytometry results. 2. Leucopenia: as per #1 3. Anemia: From underlying neoplasm and also CKD. S/p 2 units prbc with clinical improvement of s/s. >Daily cbc >Transfuse PRBC if Hb less than 8gm (as he has CAD) 4. Thrombocytopenia: Gradually trending down- partly from sepsis, antibiotics and also underlying progression of neoplasm. Some giant platelets also noted on smear. No need for any intervention for now. Will consider single donor plt transfusion if plt count < 15,000, or if bleeding when plt count less than 50,000 5. 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 This is part of the CLL disease as well. Will consider IVIG if needed, but to keep in bibi risk of possible renal failure/ other etc. 6. Pneumonia: On cefepime 1g q12h. ID and Pulmonary recommendations appreciated. Clinical and radiological improvement noted. 7. Acute on CKD: REnal functions improved.. Appreciate nephrology input. We will continue to follow closely.
--- NOTE | 2019-06-22 23:33 | PN ---
Date of Progress Note: 06/22/2019 Chief Complaint: Acute kidney injury, chronic kidney disease, diabetes mellitus with renal manifesta tion. Acute kidney injury has improved. Renal function stabilized in response to IV fluids. Review of Systems: Patient denies PND, orthopnea. Physical Examination: LUNGS: Clear to auscultation bilaterally. Heart: S1, S2. Abdomen: Soft, benign. Extremities: No edema. Impression And Plan: 1.Acute kidney injury. Renal function has stabilized. Creatinine improved from 2.01 to 1.33. BUN has improved to 28. 2.Diabetes mellitus. Continue insulin. 3.Generalized weakness. Workup per primary team. On arrival to the hospital, patient was found to have hyperkalemia. Potassium level improved. [place] nue low-potassium diet. Plan is to check urine protein electrophoresis with immunofixation to screen for monoclonal gammopath y. EB/MODL Voice ID: [id number] Report ID: [id number]
[2019-06-23] MEDS: ACETAMINOPHEN 500 MG TAB PO PRN (05:11)
[2019-06-23] MEDS: METOPROLOL TAR 25 MG TAB PO SCH (05:11)
[2019-06-23 05:53] LABS: Absolute Lymphocytes (CBC) 4.3 K/uL (0.7-4.9); Hematocrit 30.9 % (39.6-49.0); Lymphocytes % 93.9 % (15.3-44.8); MPV 9.1 fL (7.6-11.3); RBC Red Blood Cell Count 3.58 M/uL (4.33-5.43)
[2019-06-23 06:32] LABS: Blood Morphology Comment NOTED (NOT SEEN); Ovalocytes 1+; Platelet Estimate DECR
[2019-06-23] MEDS: INSULIN -REGULAR HUMAN 50 UNIT/0.5 ML ML SQ SCH ×2 (07:30→11:16)
[2019-06-23 07:42] LABS: Magnesium 2.2 mg/dL (1.8-2.4); Phosphorus 3.1 mg/dL (2.5-4.9); Potassium 4.5 mmol/L (3.5-5.1)
--- NOTE | 2019-06-23 08:16 | PN ---
Subjective: Patient denies any headache, nausea, vomiting, chest pain, abdominal pain, constipation, diarrhea. Receive 2 units of blood transfusion yesterday. Objective: Vital Signs: Temperature 98, pulse 68, respirations 20, blood pressure 134/62. Lungs: Basal crackles. Heart: S1, S2. Regular. Abdomen: Soft, nontender. Bowel sounds present. Extremities: No edema. Laboratory Data: WBC 3.6, but neutrophil remain 9.2% of the total and 92% lymphocyte; hemoglobin 10. 4, status post transfusion; platelets are 90. Blood cultures remain negative. Chest x-ray done yest erday shows patient's chest x-ray has remained stable with mild interstitial lung opacities on the le ft. The right lung remains clear. Assessment And Plan: Pancytopenia with persistent neutropenia in a patient with chronic lymphocytic leukemia, fever has resolved, pneumonia with patient currently being treated with IV cefepime and Brenda trex. Continue antibiotic and supportive care. We will continue to monitor for neutrophil count. NF/MODL Voice ID: [id number] Report ID: [id number]
[2019-06-23] MEDS: CEFEPIME/SWI 1gm 10 ML IV SCH (09:15)
[2019-06-23] MEDS: FLUDROCORTISONE 0.1 MG TAB PO SCH (09:15)
[2019-06-23] MEDS: FAMOTIDINE 20 MG TAB PO SCH (09:15)
[2019-06-23] MEDS: VALACYCLOVIR 500 MG TAB PO SCH (09:15)
[2019-06-23] MEDS: CLOPIDOGREL 75 MG TABLET PO SCH (09:16)
[2019-06-23] MEDS: ATORVASTATIN 10 MG TAB PO SCH (09:16)
[2019-06-23] MEDS: GABAPENTIN 300 MG CAP PO SCH (09:16)
[2019-06-23] MEDS: TAMSULOSIN 0.4 MG SR CAP PO SCH (09:16)
[2019-06-23] MEDS: FLUCONAZOLE 100 MG TAB PO SCH (09:16)
[2019-06-23] MEDS: ASPIRIN EC 81 MG TAB PO SCH (09:16)
[2019-06-23] MEDS: AMLODIPINE 5 MG TAB PO SCH (09:16)
[2019-06-23 12:27] VITALS: BP 151/70; TEMP 97.1
--- NOTE | 2019-06-23 13:04 | PN ---
Date of Progress Note: 06/23/2019 Subjective: The patient was admitted with acute kidney injury. Creatinine upon arrival was up to th e 2s. Currently creatinine down to his baseline. Objective: Vital Signs: Blood pressure 117/53, pulse of 51. Chest: Clear to auscultation. Heart: S1, S2 regular. Abdomen: Soft, nontender. Extremities: No edema. Laboratory Data: Sodium 134, potassium 4.5, bicarb 23, BUN 29, creatinine 1.4, calcium 8, phos 3.1, magnesium 2.2. WBC 4.6, H and H 10.3/30.9, platelet 95. Current Medications: The patient on include cefepime, fluconazole, valacyclovir, Flomax, Norvasc 5, atorvastatin, metoprolol 25 b.i.d., gabapentin, Pepcid, Zofran, Florinef. Assessment And Plan: 1.Acute kidney injury secondary to prerenal, recovered, resolved, back to baseline. We will continu e to monitor. 2.Hyperkalemia, resolved. I am going to go ahead and discontinue Florinef to avoid worsening blood pressure. 3.Chronic kidney disease stage 3 secondary to diabetes, nephropathy. 4.Status post acute kidney injury, recovered, back to baseline. 5.Thrombocytopenia as by Hematology. ZITA/YVETTE Voice ID: [id number] Report ID: [id number]
--- NOTE | 2019-06-23 13:21 | P.DS ---
Admission Date: 06/11/19 Discharge Date: 06/23/19 Primary Care Provider: Dr. Hi([place]); Oncology-Dr. Howard Disposition: ROUTINE DISCHARGE Discharge Condition: FAIR Reason for Admission: Neutropenia, fever, generalized weakness Brief History of Present Illness: Patient is a 74-year-old male with a known past medical history of CLL/ SLL was admitted to the hospital with neutropenic fever, pancytopenia and left upper lobe pneumonia. Hospital Course: Patient was started on polymicrobial regimen including cefepime, valacyclovir and fluconazole. He also required injections of granulocyte stimulating agents and blood transfusion during this hospital stay. Count recovery was difficult to achieve. He is still neutropenic despite improvement of WBC. Patient was started back on tyrosine kinase inhibitor during this admission. Hematology recommended discharging patient on anti-microbial therapy with a close follow- up as outpatient. Flow cytometry sent, results are still pending. On the day of discharge, patient was in her usual state of health. Appeared asymptomatic in no cardiopulmonary distress. Id recommended holding cefepime to avoid worsening thrombocytopenia. Vital Signs/Physical Exam: Temp Pulse Resp BP Pulse Ox 97.1 F 64 20 151/70 H 100 06/23/19 12:00 06/23/19 12:00 06/23/19 12:00 06/23/19 12:00 06/23/19 12:00 General: Alert, In no apparent distress, Cooperative HEENT: Atraumatic, Normocephalic, EOMI Neck: Supple Respiratory: Clear to auscultation bilaterally, Normal air movement Cardiovascular: Normal pulses, Regular rate/rhythm, Normal S1 S2 Gastrointestinal: Normal bowel sounds, Soft and benign, Non-distended Musculoskeletal: No swelling, No contractures, No tenderness Integumentary: Warmth Neurological: Normal speech, Normal affect Laboratory Data at Discharge: WBC 4.6 K/uL (4.3-10.9) D 06/23/19 05:25 Hgb 10.3 g/dL (13.6-17.9) L 06/23/19 05:25 Hct 30.9 % (39.6-49.0) L 06/23/19 05:25 Plt Count 95 K/uL (152-406) L 06/23/19 05:25 PT 15.5 SECONDS (9.5-12.5) H 06/11/19 03:44 INR 1.33 06/11/19 03:44 Sodium 134 mmol/L (136-145) L 06/23/19 05:25 Potassium 4.5 mmol/L (3.5-5.1) 06/23/19 05:25 BUN 29 mg/dL (7-18) H 06/23/19 05:25 Creatinine 1.43 mg/dL (0.55-1.3) H 06/23/19 05:25 Glucose 140 mg/dL (74-106) H 06/23/19 05:25 Phosphorus 3.1 mg/dL (2.5-4.9) 06/23/19 05:25 Magnesium 2.2 mg/dL (1.8-2.4) 06/23/19 05:25 Total Bilirubin 0.8 mg/dL (0.2-1.0) 06/21/19 00:29 AST 19 U/L (15-37) D 06/21/19 00:29 ALT 73 U/L (12-78) 06/21/19 00:29 Alkaline Phosphatase 86 U/L (45-117) 06/21/19 00:29 Troponin I < 0.02 ng/mL (0.0-0.045) 06/12/19 17:55 Triglycerides 52 mg/dL (<150) 06/12/19 05:48 Cholesterol < 50 mg/dL (<200) 06/12/19 05:48 HDL Cholesterol 19 mg/dL (40-60) L 06/12/19 05:48 Cholesterol/HDL Ratio 2.63 06/12/19 05:48 Home Medications: Atorvastatin Calcium 1 tab PO DAILY 12/12/18 Gabapentin 1 tab PO BID 12/12/18 Tamsulosin [Flomax*] 1 tab PO DAILY 12/12/18 Amlodipine [Norvasc*] 2 tab PO DAILY 06/11/19 Aspirin [Adult Aspirin Regimen] 81 mg PO DAILY 06/11/19 Clopidogrel Bisulfate [Plavix*] 75 mg PO DAILY 06/11/19 Nitroglycerin 0.4 mg SL PRN PRN 06/11/19 Amlodipine [Norvasc*] 5 mg PO DAILY tab 06/23/19 Fluconazole [Diflucan] 100 mg PO DAILY 14 Days tablet 06/23/19 Hydralazine [Apresoline*] 10 mg IV Q6HP PRN vial 06/23/19 Metoprolol Tartrate [Lopressor*] 25 mg PO BID 6AM 6PM tab 06/23/19 Valacyclovir [Valtrex*] 1,000 mg PO DAILY 14 Days tab 06/23/19 traMADol HCL [Ultram*] 50 mg PO TID PRN tab 06/23/19 New Medications: Fluconazole [Diflucan] 100 mg PO DAILY 14 Days tablet Valacyclovir [Valtrex*] 1,000 mg PO DAILY 14 Days tab Patient Discharge Instructions: Patient to follow up with Hematology in 1-2 days. Avoid sick contact or exposure to anyone or anything potentially infectious. Diet: Regular
--- NOTE | 2019-06-23 17:25 | PN ---
Subjective: The patient sitting by the bedside, not in any acute distress. No new complaints. Objective: Vital Signs: Temperature 97, pulse 64, respirations 18, blood pressure 151/73. Lungs: Basal crackles. Heart: S1 and S2 are regular. Abdomen: Soft, nontender. Bowel sounds present. Extremities: No edema. Laboratory Data: WBC 4.6, hemoglobin 10.6, platelets 95, neutrophil count 0.4. Patient with neutrop enia with no fevers. Blood cultures are negative. Assessment And Plan: Patient being discharged from Oncology Team. We will discontinue antibiotics a s patient has no fevers and doing well. Recommend to keep himself away from any sick people or going out in public. We will follow the patient as needed. SHIVAM/MODL Voice ID: [id number] Report ID: [id number]
[2019-06-26 22:02] LABS: Beta Globulin 24 HR Urine 0 %; Gamma Globulin, 24hr Urine 0 %; Interpretation: REPORT; Urine Alpha-2-Globulins, 24 Hr 0 %; Urine PEP Abn Protein Band1 REPORT; Urine Protein/Creat Ratio 24Hr 324 mg/g creat (<115); Urine Total Volume 24 Hours 3200 mL
== END 2019-06-23 15:40 | disposition home or self-care (01) | DRG 194 ==
LOC: 3RD-ICU 06-11 03:08 → 2ND 06-11 12:00
PROVIDERS: ADMIT Family Medicine; ATTEND Internal Medicine
DX: J18.9 Pneumonia, unspecified organism (principal); C91.10 Chronic lymphocytic leukemia of B-cell type not having achieved remission; N17.9 Acute kidney failure, unspecified; D80.1 Nonfamilial hypogammaglobulinemia; D70.9 Neutropenia, unspecified; R50.81 Fever presenting with conditions classified elsewhere; E11.22 Type 2 diabetes mellitus with diabetic chronic kidney disease; I12.9 Hypertensive chronic kidney disease with stage 1 through stage 4 chronic kidney disease, or unspecified chronic kidney disease; N18.3 Chronic kidney disease, stage 3 (moderate); E78.5 Hyperlipidemia, unspecified; I25.10 Atherosclerotic heart disease of native coronary artery without angina pectoris; E11.649 Type 2 diabetes mellitus with hypoglycemia without coma; D63.1 Anemia in chronic kidney disease; K21.9 Gastro-esophageal reflux disease without esophagitis; D69.6 Thrombocytopenia, unspecified; E86.0 Dehydration; E87.5 Hyperkalemia
CPT/HCPCS: 36415; 36430; 71045; 71046; 71275; 76770; 80048; 80053; 80061; 80202; 81003; 81015; 82274; 82550; 82570; 82728; 82784; 82947; 83036; 83540; 83605; 83615; 83735; 83880; 84100; 84132; 84145; 84156; 84166; 84443; 84466; 84484; 84550; 85014; 85018; 85025; 85044; 85610; 86334; 86850; 86900; 86901; 87040; 87070; 87205; 93005; 94640; 94760; J0360; J0456; J0692; J0885; J1447; J1815; J1940; J2270; J7030; P9016; Q9967

== ENCOUNTER 2019-10-19 13:15 | Observation (INO) | payer OTHER ==
--- OUTSIDE RECORDS SUMMARY | 2019-10-19 13:19 | XMS REPORT ---
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 Diabetes 03-04 mellitus Mellitus 00:00: 00 Hyperlipide Hyperlipide Problem Active cecil cecli 03-04 00:00: 00 Hypertensiv Hypertensiv Problem Active e disorder e Disorder 03-04 00:00: 00 Osteoarthri Osteoarthri Problem Active tis tis 03-04 00:00: 00 Chronic Chronic Problem Active kidney Kidney 2-06 disease Disease 00:00: 00 Heart Heart Problem Active murmur Murmur 2-06 00:00: 00 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 Cataract 00:00: 00 Myopia Myopia Problem Active 2017-06 00:00: 00 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 Astigmatism 1-20 00:00: 00 Presbyopia Presbyopia Problem Active 2017-06 00:00: 00 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 Retinopathy 1-20 screening Screening 00:00: offered Offered 00 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 Medications Ordered Filled Start Stop Current Ordering Indication Dosage Frequency Signature Comments Components Medication Medication Date Date Medication? Clinician (SIG) Name Name accu-chek accu-chek No accu-chek kit guide kit guide kit guide Accu-Chek Accu-Chek No Accu-Chek Guide L1-L2 Guide L1-L2 Guide Control Control L1-L2 Solution Solution Control Solution Accu-Chek Accu-Chek No Accu-Chek Guide Guide Guide strips strips strips acetaminoph acetaminoph No acetamin op en 300 en 300 hen 300 mg-codeine mg-codeine mg-codeine 30 mg 30 mg 30 mg tablet tablet tablet allopurinol allopurinol No allopuri no 100 mg 100 mg l 100 mg tablet tablet tablet amlodipine amlodipine No amlodipine 2.5 mg 2.5 mg 2.5 mg tablet tablet tablet Aspir-81 Aspir-81 No Aspir-81 One tab One tab One tab daily. daily. daily. atorvastati atorvastati No atorvast at n 10 mg n 10 mg in 10 mg tablet Take tablet Take tablet 1 tablet(s) 1 tablet(s) Take 1 every day every day tablet(s) by oral by oral every day route. route. by oral route. clindamycin clindamycin No clindamy ci HCl 300 mg HCl 300 mg n HCl 300 capsule capsule mg capsule clopidogrel clopidogrel No clopidog re 75 mg 75 mg l 75 mg tablet One tablet One tablet One tab once tab once tab once daily. daily. daily. comfort ez comfort ez No comfort ez mis mis mis [id number] doxycycline doxycycline No doxycycl in hyclate 100 hyclate 100 e hyclat e mg tablet mg tablet 100 mg tablet doxycycline doxycycline No doxycycl in monohydrate monohydrate e 100 mg 100 mg monohydrat capsule capsule e 100 mg capsule fluconazole fluconazole No fluconaz ol 50 mg 50 mg e 50 mg tablet tablet tablet furosemide furosemide No furosemide 20 mg 20 mg 20 mg tablet tablet tablet gabapentin gabapentin No gabapentin 300 mg 300 mg 300 mg capsule One capsule One capsule tab twice tab twice One tab daily. daily. twice daily. Imbruvica Imbruvica No Imbruvica 140 mg 140 mg 140 mg capsule capsule capsule Imbruvica Imbruvica No Imbruvica 420 mg 420 mg 420 mg tablet tablet tablet Januvia 100 Januvia 100 No Januvia mg tablet mg tablet 100 mg TAKE ONE TAKE ONE tablet (1) (1) TAKE ONE TABLET(S) TABLET(S) (1) BY MOUTH BY MOUTH TABLET(S) ONCE A DAY. ONCE A DAY. BY MOUTH ONCE A DAY. levofloxaci levofloxaci No levoflox ac n 500 mg n 500 mg in 500 mg tablet tablet tablet lisinopril lisinopril No lisinopril 20 mg 20 mg 20 mg tablet Take tablet Take tablet 1 tablet 1 tablet Take 1 every day every day tablet by oral by oral every day route for route for by oral 90 days. 90 days. route for 90 days. mupirocin 2 mupirocin 2 No mupiroci n % topical % topical 2 % ointment ointment topical ointment nitroglycer nitroglycer No nitrogly ce in 0.4 mg in 0.4 mg rin 0.4 mg sublingual sublingual sublingual tablet tablet tablet NovoFine NovoFine No NovoFine Plus 32 Plus 32 Plus 32 gauge x gauge x gauge x 1/6" needle 1/6" needle 1/6" needle ondansetron ondansetron No ondanset ro 4 mg 4 mg n 4 mg disintegrat disintegrat disinteg ra ing tablet ing tablet ting tablet simple diag simple diag No simple mis mis diag mis lancing lancing lancing sulfamethox sulfamethox No sulfamet ho azole 800 azole 800 xazole 800 mg-trimetho mg-trimetho mg-trime th prim 160 mg prim 160 mg oprim 16 0 tablet tablet mg tablet tamsulosin tamsulosin No tamsulosin 0.4 mg 0.4 mg 0.4 mg capsule One capsule One capsule tab daily tab daily One tab agter meal. agter meal. daily agter meal. Tresiba Tresiba No Tresiba FlexTouch FlexTouch FlexTouch U-100 U-100 U-100 insulin 100 insulin 100 insulin unit/mL (3 unit/mL (3 100 mL) mL) unit/mL (3 subcutaneou subcutaneou mL) s pen s pen subcutaneo INJECT 30 INJECT 30 us pen UNITS SUB-Q UNITS SUB-Q INJECT 3 0 EVERY DAY EVERY DAY UNITS IN THE IN THE SUB-Q EVENING EVENING EVERY DAY IN THE EVENING Tresiba Tresiba No Tresiba U-100 U-100 U-100 Insulin 100 Insulin 100 Insulin unit/mL unit/mL 100 subcutaneou subcutaneou unit/mL s solution s solution subcutaneo INJECT 50 INJECT 50 us UNITS SUB-Q UNITS SUB-Q solution EVERY DAY EVERY DAY INJECT 50 IN THE IN THE UNITS EVENING EVENING SUB-Q EVERY DAY IN THE EVENING ultra thin ultra thin No ultra thin mis 31g mis 31g mis 31g valacyclovi valacyclovi No valacycl ov r 1 gram r 1 gram ir 1 gram tablet tablet tablet valacyclovi valacyclovi No valacycl ov r 500 mg r 500 mg ir 500 mg tablet tablet tablet Adult Low Adult Low No Adult Low Dose Dose Dose Aspirin 81 Aspirin 81 Aspirin 81 mg po qd mg po qd mg po qd amlodipine amlodipine No amlodipine 2.5 mg 2.5 mg 2.5 mg tablet tablet tablet atorvastati atorvastati No atorvast at n 10 mg n 10 mg in 10 mg tablet 1 tablet 1 tablet 1 tab po qd tab po qd tab po qd clopidogrel clopidogrel No clopidog re 75 mg 75 mg l 75 mg tablet tablet tablet fluconazole fluconazole No fluconaz ol 50 mg 50 mg e 50 mg tablet tablet tablet furosemide furosemide No furosemide 20 mg 20 mg 20 mg tablet 1 tablet 1 tablet 1 tab po qd tab po qd tab po qd gabapentin gabapentin No gabapentin 300 mg 300 mg 300 mg capsule capsule capsule Take 1 Take 1 Take 1 Capsule BID Capsule BID Capsule BID Imbruvica Imbruvica No Imbruvica 140 mg 140 mg 140 mg capsule 1 capsule 1 capsule 1 tab po qd tab po qd tab po qd lisinopril lisinopril No lisinopril 20 mg 20 mg 20 mg tablet tablet tablet mupirocin 2 mupirocin 2 No mupiroci n % topical % topical 2 % ointment ointment topical ointment nitroglycer nitroglycer No nitrogly ce in 0.4 mg in 0.4 mg rin 0.4 mg sublingual sublingual sublingual tablet tablet tablet NovoFine NovoFine No NovoFine Plus 32 Plus 32 Plus 32 gauge x gauge x gauge x /6" needle 06/22" needle 06/22" needle ondansetron ondansetron No ondanset ro 4 mg 4 mg n 4 mg disintegrat disintegrat disinteg ra ing tablet ing tablet ting tablet tamsulosin tamsulosin No tamsulosin 0.4 mg 0.4 mg 0.4 mg capsule one capsule one capsule tab daily tab daily one tab daily Tresiba Tresiba No Tresiba FlexTouch FlexTouch FlexTouch U-100 U-100 U-100 insulin 100 insulin 100 insulin unit/mL (3 unit/mL (3 100 mL) mL) unit/mL (3 subcutaneou subcutaneou mL) s pen 35 s pen 35 subcutaneo units daily units daily us pen 3 5 units daily valacyclovi valacyclovi No valacycl ov r 500 mg r 500 mg ir 500 mg tablet tablet tablet Immunizations Ordered Immunization Name Filled Immunization Name Date Sta Comments influenza, high dose influenza, high dose 2019-02-15 Completed seasonal seasonal 00:00:00 pneumococcal conjugate PCV pneumococcal conjugate 2018-06-25 Comp leted 13 PCV 13 15:39:02 influenza, high dose influenza, high dose 2018-03-17 Completed seasonal seasonal 00:00:00 influenza, trivalent, influenza, trivalent, 2018-03-03 Completed adjuvanted adjuvanted 16:11:29 influenza, injectable, influenza, injectable, 2017-02-23 Complete d quadrivalent quadrivalent 00:00:00 pneumococcal conjugate PCV pneumococcal conjugate 2015-06-29 Comp leted 13 PCV 13 00:00:00 pneumococcal pneumococcal 2014-04-14 Completed polysaccharide PPV23 polysaccharide PPV23 00:00:00 Tdap Tdap 2013-12-17 Completed 00:00:00 Vital Signs Vital Name Observation Time Observation Value Comments BP Diastolic 2019-08-04 00:00:00 60 mm[Hg] Height 2019-08-04 00:00:00 67 [in_i] BP Systolic 2019-08-04 00:00:00 138 mm[Hg] Body Weight 2019-08-04 00:00:00 163.6 [lb_av] BP Diastolic 2019-07-15 00:00:00 56 mm[Hg] Height 2019-07-15 00:00:00 68 [in_i] BP Systolic 2019-07-15 00:00:00 133 mm[Hg] Body Weight 2019-07-15 00:00:00 2496 [oz_av] BP Diastolic 2019-05-04 00:00:00 52 mm[Hg] Height 2019-05-04 00:00:00 68 [in_i] BP Systolic 2019-05-04 00:00:00 148 mm[Hg] Body Weight 2019-05-04 00:00:00 2768 [oz_av] BP Diastolic 2019-03-04 00:00:00 53 mm[Hg] Height 2019-03-04 00:00:00 68 [in_i] BP Systolic 2019-03-04 00:00:00 144 mm[Hg] Body Weight 2019-03-04 00:00:00 2768 [oz_av] BP Diastolic 2018-09-22 00:00:00 66 mm[Hg] Height 2018-09-22 00:00:00 68 [in_i] BP Systolic 2018-09-22 00:00:00 140 mm[Hg] Body Weight 2018-09-22 00:00:00 2825 [oz_av] BP Diastolic 2018-06-25 00:00:00 61 mm[Hg] Height 2018-06-25 00:00:00 68 [in_i] BP Systolic 2018-06-25 00:00:00 145 mm[Hg] Body Weight 2018-06-25 00:00:00 2944 [oz_av] Procedures and Interventions Procedure Date / Time Performed Performing Clinici an Orthopedic Surgery 2015-10-24 00:00:00 Colonoscopy 2015-10-21 00:00:00 Ekg for Initial Prevent Exam 2015-09-28 00:00:00 Appendectomy Carotid Stent Placement Angioplasty Carotid Endarterectomy Hernia Repair Arthroplasty of Knee Plan of Care Planned Activity Planned Date Comments Encounters Start End Encounter Admission Attending Care Care Encounter Date/Time Date/Time Type Type Clinicians Facility Department ID 2019-08-04 2019-08-04 Cyndy Borges [facility] [place] - [id number] 00:00:00 00:00:00 ISHMAEL Massey: [address], [place] [address], Ph. 2019-07-15 2019-07-15 Robin MMG [place] - [id number] 00:00:00 00:00:00 Madan Hi MD: [address], [place] [address], Ph. 2019-07-06 2019-07-06 Outpatient [facility] MED [id number] 08:33:00 08:33:00 2019-05-04 2019-05-04 Robin MOSS [place] - [id number] 00:00:00 00:00:00 Madan Hi MD: [address], [place] [phone], Ph. 2019-03-04 2019-03-04 Robin MOSS [place] - [id number] 00:00:00 00:00:00 Madan Hi MD: [address], [place] [address], Ph. 2018-09-22 2018-09-22 Robin MOSS [place] - [id number] 00:00:00 00:00:00 Madan Hi MD: [address], [address], [place] [address], Ph. 2018-06-25 2018-06-25 Robin MOSS [place] - [id number] 00:00:00 00:00:00 Madan Hi MD: [address], [place] [phone], Ph. 2017-08-19 2017-08-19 Outpatient Juancho DIAZ [facility] MED [id number] 15:42:00 15:42:00 CLINT Results Test Description Test Time Test Comments Text Results Atomic Results Result Comments Comprehensive metabolic 2000 panel - Serum or Plasma 2019-07-13 12:00:00 Test Item Value Reference Range Comments Glucose [Mass/volume] in Serum or Plasma (test code = 2345-7) 12 3 mg/dL 82-115 Urea nitrogen [Mass/volume] in Serum or Plasma (test code = 22 m g/dL 8-23 3094-0) osmolality calculated,serum (test code = osmolality 267 mOsm/kg 280-300 calculated,serum) creatinine (test code = creatinine) 1.4 mg/dL 0.70-1.20 glomerular filtration rate (test code = glomerular filtration 49 .27 rate) Urea nitrogen/Creatinine [Mass Ratio] in Serum or Plasma 15.7 12-20 (test code = 3097-3) sodium level (test code = sodium level) 131 mmol/L 135-145 potassium level (test code = potassium level) 4.9 mmol/L 3. 5-5.2 chloride level (test code = chloride level) 96 mmol/L 98-1 08 CO2 (test code = CO2) 24 mmol/L 21-32 anion gap (test code = anion gap) 15.9 mEq/L 12-20 calcium level (test code = calcium level) 9.1 mg/dL 8.8-10 .2 total protein (test code = total protein) 6.2 g/dL 6.6-8. 7 albumin (test code = albumin) 3.7 g/dL 3.5-5.2 globulin (test code = globulin) 2.5 gm/dL A/G ratio (test code = A/G ratio) 1.5 >1.0 bilirubin,total (test code = bilirubin,total) 0.4 mg/dL 0. 0-1.2 AST/SGOT (test code = AST/SGOT) 9 U/L 15-40 Alanine aminotransferase [Enzymatic activity/volume] in Serum 10 U/L 0-41 or Plasma (test code = 1742-6) Alkaline phosphatase [Enzymatic activity/volume] in Serum or 80 U/L 40-130 Plasma (test code = 6768-6) Urate [Mass/volume] in [id number] 12:00:00 Test Item Value Reference Range Comments uric acid (test code = uric acid) 4.3 mg/dL 3.4-7.0 D-Lactate [Moles/volume] in Serum or [id number] 12:00:00 Test Item Value Reference Range Comments LDH (test code = LDH) 68 U/L 135-225 CBC W Auto Differential panel - [id number] 12:00:00 Test Item Value Reference Range Comments white blood count (test code = white blood count) 3.9 K/uL 4.0-12.3 red blood count (test code = red blood count) 3.32 M/uL 3. 80-5.80 hemoglobin (test code = hemoglobin) 9.6 g/dL 11.7-17.2 hematocrit (test code = hematocrit) 30.4 % 35.0-51.0 Erythrocyte mean corpuscular volume [Entitic 91.6 fL 83- 100 volume] (test code = 82400-2) mean corpuscular hemoglobin (test code = mean 28.9 pg 26 .8-33.4 corpuscular hemoglobin) mean corpuscular HGB conc (test code = mean 31.6 g/dL 30-3 5 corpuscular HGB conc) red cell distribution width (test code = red cell 16.1 % 12.0-14.0 distribution width) platelet count (test code = platelet count) 138 K/uL 175- 450 mean platelet volume (test code = mean platelet 11.3 fL 9.4-12.6 volume) NRBC% (test code = NRBC%) 0 /100 WBC 0-0.2 NRBC# (test code = NRBC#) 0 K/uL differential panel, [id number] 12:00:00 Test Item Value Reference Range Comments Neutrophils [#/volume] in Blood by 2 37.0-80.0 Automated count (test code = 751-8) lymphocyte (test code = lymphocyte) 94 10-50 Monocytes [#/volume] in Blood by Manual 1 0-12 count (test code = 743-5) eosinophil (test code = eosinophil) 2 0-7 Basophils/100 leukocytes in Unspecified 1 0-3 specimen by Manual count (test code = 05354-3) Platelets [#/volume] in Blood by Automated appear decreased adeq uate count (test code = 777-3) Lipid [id number] 21:28:00 Test Item Value Reference Range Comments Cholesterol (test code = 160 mg/dL 0-200 CHOL) Triglycerides (test code = 157 mg/dL 9-200 TRIG) HDL (test code = HDL) 30 mg/dL 40-60 Chol/HDL (test code = 5.3 Ratio 0.0-5.0 CHOLPHDL) LDL, Calculated (test code 99 0-130 (NOTE )RISK OF HEART = LDLC) DISEASEPublished by [facility] Associatio nAnalyte Optimal Boderline Increased RiskCHOL <200 20 0-239 >240TRIG <150 150-199 >200HDL Male: >60 <40HDL Female: &g t;60 <50LDL <100 130-159 >1 60LDL NEAR O PTIMAL IS 100-129 VLDL (test code = VLDL) 31 mg/dL 5-40 LDL/HDL (test code = 3 LDLPHDL) Lipid [id number] 21:39:00 Test Item Value Reference Range Comments Cholesterol (test code = 102 mg/dL 0-200 CHOL) Triglycerides (test code = 220 mg/dL 9-200 TRIG) HDL (test code = HDL) 20 mg/dL 40-60 Chol/HDL (test code = 5.1 Ratio 0.0-5.0 CHOLPHDL) LDL, Calculated (test code 38 0-130 (NOTE )RISK OF HEART = LDLC) DISEASEPublished by [facility] nAnalyte Optimal Boderline Increased RiskCHOL <200 20 0-239 >240TRIG <150 150-199 >200HDL Male: >60 <40HDL Female: &g t;60 <50LDL <100 130-159 >1 60LDL NEAR O PTIMAL IS 100-129 VLDL (test code = VLDL) 44 mg/dL 5-40 LDL/HDL (test code = 2 LDLPHDL) Comprehensive Metabolic [id number] 21:39:00 Test Item Value Reference Range Comments Sodium (test code = NA) 132 mmol/L 135-145 Potassium (test code = K) 4.7 mmol/L 3.5-5.1 Chloride (test code = CL) 97 mmol/L 98-105 Carbon Dioxide (test code 24 mmol/L 22-29 = CO2) Glucose (test code = GLU) 249 mg/dL 70-115 Blood Urea Nitrogen (test 18 mg/dL 8-23 code = BUN) Creatinine (test code = 1.5 mg/dL 0.7-1.2 CREAT) Calcium (test code = CA) 9.0 mg/dL 8.3-10.5 Prot Total (test code = 6.2 g/dL 6.4-8.3 TP) Albumin (test code = ALB) 4.2 g/dL 3.5-5.2 A/G Ratio (test code = 2.1 Ratio AGRATIO) Globulin (test code = 2.0 2.9-3.1 GLOB) Bili Total (test code = 0.4 mg/dL 0.1-0.9 TBIL) Alk Phos (test code = 81 U/L 40-129 APHOS) AST (test code = AST) 19 U/L 1-40 ALT (test code = ALT) 15 U/L 1-41 BUN/Creatinine Ratio 12.0 (test code = BCRATIO) Anion Gap (test code = 11 mmol/L 7-16 AGAP) Estimated GFR (test code 49 mL/min/1.73m2 eGFR ( estimated Glomerular = GFR) Filtration Rate) is an estimated value, calculated from the patient 's serum creatinine using the MDRD equation.It is N OT the patient's actual GFR. The eGFR provides a more clinicallyuseful measure of kidney disease t gonzalez serum creatinine alone .This calculation take s sex and race into accoun t, if the informationis pr ovided. If the race is not provided, and the patient isAfrican-Americ an, multiply by 1.21 2. If sex is not provided, and thepatient is fe male, multiply by 0.74 2. Results for patients <18 years ofage have not b een validated by the MDRD study and should be interpretedwith caution.eGFR Res ult Interpretation:e GFR > or = 60 is in the Nor mal RangeeGFR < 60 m ay mean kidney diseaseeG FR < 15 may mean kidney failureRanges recommended by chioma santos National Kid[employer] Foundation,http: //nkdep.nih .gov Glycosylated [id number] 21:32:00 Test Item Value Reference Range Comments HBA1c (test code = HBA1C) 7.8 % 4.8-5.9 CBC with [id number] 20:41:00 Test Item Value Reference Range Comments WBC (test code = WBC) 15.1 K/cumm 4.4-10.5 RBC (test code = RBC) 5.02 M/cumm 4.10-5.70 Hemoglobin (test code = HGB) 14.4 gm/dL 13.4-17.4 Hematocrit (test code = HCT) 46.6 % 38.7-52.0 MCV (test code = MCV) 92.7 fL 80-100 MCH (test code = MCH) 28.7 pg 27.0-32.5 MCHC (test code = MCHC) 30.9 g/dL 32.0-37.5 RDW (test code = RDW) 14.3 % 11.5-14.5 Platelet Count (test code = PLTCT) 235 K/cumm 140-440 MPV (test code = MPV) 9.0 fL Diff Method (test code = DIFFM) Auto Neutrophil (test code = NEUT) 38.3 % 36-70 Lymphocyte (test code = LYMPH) 50.0 % 12-44 Monocyte (test code = MONO) 9.3 % 0-11 Eosinophil (test code = EOS) 1.7 % 0-7 Basophil (test code = BASO) 0.8 % 0-2 Neutro Abs (test code = ANEUT) 5.8 K/cumm 1.6-7.4 Lymph Abs (test code = ALYMPH) 7.5 K/cumm 0.5-4.6 [place] Abs (test code = AMONO) 1.4 K/cumm 0.0-1.2 Eos Abs (test code = AEOS) 0.25 K/cumm 0.00-0.74 Baso Abs (test code = ABASO) 0.1 K/cumm 0.00-0.21
[2019-10-19 14:27] LABS: Absolute Lymphocytes (CBC) 2.2 K/uL (0.7-4.9); Basophils % 1.2 % (0-1.3); Hematocrit 20.8 % (39.6-49.0); Lymphocytes % 53.7 % (15.3-44.8); MPV 8.7 fL (7.6-11.3); RBC Red Blood Cell Count 2.47 M/uL (4.33-5.43)
[2019-10-19 14:34] LABS: Potassium 4.2 mmol/L (3.5-5.1)
--- NOTE | 2019-10-19 15:25 | RAD REPORT ---
EXAM DESCRIPTION: RAD - Chest Single View - 10/19/2019 3:10 pm CLINICAL HISTORY: leukemia, weakness COMPARISON: July 13 TECHNIQUE: AP portable chest image was obtained 10/19/2019 3:10 pm . FINDINGS: Lungs are clear. Heart and vasculature are normal. No measurable pleural effusion and no p neumothorax. No acute bony abnormality seen. No acute aortic findings suspected. IMPRESSION: No acute cardiopulmonary process.
[2019-10-19 17:30] LABS: ALT/SGPT 11 U/L (12-78); AST/SGOT 7 U/L (15-37); Albumin 3.4 g/dL (3.4-5.0); Alkaline Phosphatase 65 U/L (45-117); Bilirubin Direct < 0.1 mg/dL (0-0.2); Bilirubin Total 0.2 mg/dL (0.2-1.0); Ferritin 11.6 ng/mL (26-388); Protein, Total 6.2 g/dL (6.4-8.2); Transferrin 311 mg/dL (200-360)
[2019-10-19 19:11] LABS: Protime INR 1.1
--- NOTE | 2019-10-19 19:22 | ER ---
Nurse's Notes [facility] Name: Bhavesh Mary Jr Age: 74 yrs Sex: Male : 1945 Arrival Date: 10/19/2019 Time: 13:18 Bed 14 Private MD: Diagnosis: Anemia, unspecified;Gastrointestinal hemorrhage, unspecified Presentation: 10/18 13:30 Chief complaint: Patient states: States he needs another blood transfusion. + pale and ll1 weak. Coronavirus screen: Proceed with normal triage. Patient denies a cough. Patient denies shortness of breath or difficulty breathing. Patient denies measured and/or subjective temperature greater than 100.4F prior to today's visit. Patient denies travel on a cruise ship or to a country the [facility] currently lists as an affected area. Patient denies contact with known and/or suspected case of COVID-19. Ebola Screen: Patient denies travel to an Ebola-affected area in the 21 days before illness onset. Initial Sepsis Screen: Does the patient meet any 2 criteria? No. Patient's initial sepsis screen is negative. Does the patient have a suspected source of infection? No. Patient's initial sepsis screen is negative. Risk Assessment: Do you want to hurt yourself or someone else? Patient reports no desire to harm self or others. Onset of symptoms is unknown. 13:30 Method Of Arrival: Ambulatory ll1 13:30 Acuity: ALTON 3 ll1 Historical: - Allergies: 13:32 No Known Allergies; ll1 - Home Meds: 15:26 aspirin 81 mg Oral TbEC [Active]; jl7 - PMHx: 13:32 Diabetes - IDDM; Hypertension; chronic lymphocytic leukemia; ll1 - Immunization history:: Adult Immunizations unknown. - Social history:: Patient/guardian denies using alcohol, street drugs, tobacco products, Smoking status: Patient denies any tobacco usage or history of. Screenin:09 Abuse screen: Denies threats or abuse. Denies injuries from another. Nutritional jl7 screening: No deficits noted. Tuberculosis screening: No symptoms or risk factors identified. Fall Risk IV access (20 points). Total Fam Fall Scale indicates No Risk (0-24 pts). Assessment: 13:55 General: Appears in no apparent distress. uncomfortable, Behavior is calm, cooperative, jl7 appropriate for age. Pain: Denies pain. Neuro: Level of Consciousness is awake, alert, obeys commands, Oriented to person, place, time, situation. Cardiovascular: Denies chest pain, shortness of breath, Patient's skin is warm and dry. Respiratory: Airway is patent Respiratory effort is even, unlabored, Respiratory pattern is regular, symmetrical, Denies shortness of breath. Derm: Skin is dry, Skin is pale, Skin temperature is warm. Musculoskeletal: Reports "I feel weak and tired.". 16:00 Reassessment: Patient appears in no apparent distress at this time. No changes from [facility] previously documented assessment. Patient and/or family updated on plan of care and expected duration. Pain level reassessed. Patient is alert, oriented x 3, equal unlabored respirations, skin warm/dry/pink. 17:11 Reassessment: Patient appears in no apparent distress at this time. No changes from 7 previously documented assessment. Patient and/or family updated on plan of care and expected duration. Pain level reassessed. Patient is alert, oriented x 3, equal unlabored respirations, skin warm/dry/pink. 18:50 Reassessment: Pt requesting something to eat, ERP reports he cannot eat until the [facility] hospitalist comes to see him, pt verbalizes understanding. 19:04 Reassessment: Patient appears in no apparent distress at this time. Patient and/or family updated on plan of care and expected duration. Pain level reassessed. Patient is alert, oriented x 3, equal unlabored respirations, skin warm/dry/pink. FF up call spoke with [facility] regarding 2 units PRBC, states done for crossmatching, will send shortly. 20:10 Reassessment: Patient appears in no apparent distress at this time. No changes from previously documented assessment. Patient and/or family updated on plan of care and expected duration. Pain level reassessed. Patient is alert, oriented x 3, equal unlabored respirations, skin warm/dry/pink. Pt instructed on NPO, BT initiated. Vital Signs: 13:30 BP 159 / 49; Pulse 89; Resp 18; Temp 98.6; Pulse Ox 100% ; Pain 0/10; ll1 14:09 BP 149 / 52; Pulse 78; Resp 15 S; Pulse Ox 100% on R/A; Pain 0/10; jl7 15:19 BP 142 / 52; Pulse 74; Resp 15 S; Temp 98(O); Pulse Ox 100% on R/A; jl7 17:10 BP 140 / 50; Pulse 70; Resp 16; Pulse Ox 99% ; jl7 18:50 BP 149 / 44; Pulse 73; Resp 16; Pulse Ox 100% ; jl7 20:00 BP 165 / 60; Pulse 68; Resp 16; Temp 98.0; Pulse Ox 100% on R/A; ED Course: 13:18 Patient arrived in ED. mr 13:31 Triage completed. ll1 13:32 Arm band placed on Patient notified of wait time. ll1 13:41 Gregorio Rashid, SHARLENE is Primary Nurse. jl7 13:52 Marla Johns FNP-C is PHCP. snw 13:52 Ajit Mtz MD is Attending Physician. snw 14:09 Patient has correct armband on for positive identification. Placed in gown. Bed in low jl7 position. Call light in reach. Side rails up X2. desk monitor on. Pulse ox on. NIBP on. Warm blanket given. 14:09 Initial lab(s) drawn, by ut, sent to lab. Inserted saline lock: 20 gauge in right jl7 forearm, using aseptic technique. Blood collected. 15:11 Chest Single View XRAY In Process Unspecified. EDMS 15:41 Consent for blood and/or blood product transfusion explained by staff, explained by [facility] physician, signed by patient. 15:46 PHCP role handed off by Marla Johns FNP-C pm1 15:46 Tomas Vega NP is PHCP. pm1 16:19 Bb Add On Sent. jl7 18:57 Ferritin Sent. jl7 19:21 Garrison Pulido MD is Hospitalizing Provider. pm1 20:30 No provider procedures requiring assistance completed. Patient admitted, IV remains in place. Administered Medications: No medications were administered Medication: 20:10 Blood products: PRBCs X 1 unit given. Outcome: 19:22 Decision to Hospitalize by Provider. pm1 20:30 Admitted to ER Hold. Please see [facility] for further documentation. 20:30 Condition: stable 20:30 Instructed on the need for admit. 10/19 07:44 Patient left the ED. em1 Signatures: Dispatcher [employer] EDMS Marla Johns, SOFTWARE DATABASE ARCHITECT-C SOFTWARE DATABASE ARCHITECT-Csnw Tong, Cyndy mr Jai, Miguel Angel em1 Tomas Vega, SHACTOR SHACTOR pm1 Gregorio Rashid, RN RN jl7 Perry Llamas Lynsay, RN RN ll1
--- NOTE | 2019-10-19 19:23 | EDPHYS ---
Physician Documentation [facility] Name: Bhavesh Mary Jr Age: 74 yrs Sex: Male : 1945 Arrival Date: 10/19/2019 Time: 13:18 Bed 14 Private MD: ED Physician Ajit Mtz HPI: 10/18 15:56 This 74 yrs old Male presents to ER via Ambulatory with complaints of Anemia. snw 15:56 Onset: The symptoms/episode began/occurred and became persistent. Associated signs and snw symptoms: The patient has no apparent associated signs or symptoms. Modifying factors: The patient symptoms are alleviated by nothing. The patient has experienced similar episodes in the past, multiple times, chronically. Sees Dr. Hi in [facility] and Dr. Howard at the cancer center. Routine blood work revealed very low H/H. Sent to ED for blood transfusion. Historical: - Allergies: 13:32 No Known Allergies; ll1 - Home Meds: 15:26 aspirin 81 mg Oral TbEC [Active]; jl7 - PMHx: 13:32 Diabetes - IDDM; Hypertension; chronic lymphocytic leukemia; ll1 - Immunization history:: Adult Immunizations unknown. - Social history:: Patient/guardian denies using alcohol, street drugs, tobacco products, Smoking status: Patient denies any tobacco usage or history of. ROS: 15:55 Constitutional: Negative for fever, chills, and weight loss, Eyes: Negative for injury, snw pain, redness, and discharge, ENT: Negative for injury, pain, and discharge, Neck: Negative for injury, pain, and swelling, Cardiovascular: Negative for chest pain, palpitations, and edema, Respiratory: Negative for shortness of breath, cough, wheezing, and pleuritic chest pain, Abdomen/GI: Negative for abdominal pain, nausea, vomiting, diarrhea, and constipation, Back: Negative for injury and pain, : Negative for injury, bleeding, discharge, and swelling, MS/Extremity: Negative for injury and deformity, Skin: Negative for injury, rash, and discoloration, Neuro: Negative for headache, weakness, numbness, tingling, and seizure, Psych: Negative for depression, anxiety, suicide ideation, homicidal ideation, and hallucinations. Exam: 15:55 Constitutional: This is a well developed, well nourished patient who is awake, alert, snw and in no acute distress. Head/Face: Normocephalic, atraumatic. Eyes: Pupils equal round and reactive to light, extra-ocular motions intact. Lids and lashes normal. Conjunctiva and sclera are non-icteric and not injected. Cornea within normal limits. Periorbital areas with no swelling, redness, or edema. ENT: Nares patent. No nasal discharge, no septal abnormalities noted. Tympanic membranes are normal and external auditory canals are clear. Oropharynx with no redness, swelling, or masses, exudates, or evidence of obstruction, uvula midline. Mucous membranes moist. Neck: Trachea midline, no thyromegaly or masses palpated, and no cervical lymphadenopathy. Supple, full range of motion without nuchal rigidity, or vertebral point tenderness. No Meningismus. Chest/axilla: Normal chest wall appearance and motion. Nontender with no deformity. No lesions are appreciated. Cardiovascular: Regular rate and rhythm with a normal S1 and S2. No gallops, murmurs, or rubs. Normal PMI, no JVD. No pulse deficits. Respiratory: Lungs have equal breath sounds bilaterally, clear to auscultation and percussion. No rales, rhonchi or wheezes noted. No increased work of breathing, no retractions or nasal flaring. Abdomen/GI: Soft, non-tender, with normal bowel sounds. No distension or tympany. No guarding or rebound. No evidence of tenderness throughout. Back: No spinal tenderness. No costovertebral tenderness. Full range of motion. Skin: Warm, dry with normal turgor. Normal color with no rashes, no lesions, and no evidence of cellulitis. MS/ Extremity: Pulses equal, no cyanosis. Neurovascular intact. Full, normal range of motion. Neuro: Awake and alert, GCS 15, oriented to person, place, time, and situation. Cranial nerves II-XII grossly intact. Motor strength 5/5 in all extremities. Sensory grossly intact. Cerebellar exam normal. Normal gait. Psych: Awake, alert, with orientation to person, place and time. Behavior, mood, and affect are within normal limits. 18:10 Abdomen/GI: Rectal exam: rectal tone normal, Stool: brown, Trace positive, pm1 hemorrhoid(s), are not appreciated, tenderness, is not appreciated, Rick page technician. Vital Signs: 13:30 BP 159 / 49; Pulse 89; Resp 18; Temp 98.6; Pulse Ox 100% ; Pain 0/10; ll1 14:09 BP 149 / 52; Pulse 78; Resp 15 S; Pulse Ox 100% on R/A; Pain 0/10; jl7 15:19 BP 142 / 52; Pulse 74; Resp 15 S; Temp 98(O); Pulse Ox 100% on R/A; jl7 17:10 BP 140 / 50; Pulse 70; Resp 16; Pulse Ox 99% ; jl7 18:50 BP 149 / 44; Pulse 73; Resp 16; Pulse Ox 100% ; jl7 20:00 BP 165 / 60; Pulse 68; Resp 16; Temp 98.0; Pulse Ox 100% on R/A; wh MDM: 14:10 Patient medically screened. snw 16:00 Data reviewed: vital signs, nurses notes. Data interpreted: Pulse oximetry: on room air snw is 100 %. Interpretation: normal. Counseling: I had a detailed discussion with the patient and/or guardian regarding: the historical points, exam findings, and any diagnostic results supporting the discharge/admit diagnosis, the presence of at least one elevated blood pressure reading (>120/80) during this emergency department visit, lab results, radiology results. Transition of care: After a detail discussion of the patient's case, care is transferred to Tomas Vega NP. 17:00 Physician consultation: Oncology Jareth was contacted at 17:00, would like further pm1 tests performed, No evidence of hemolysis based on prior labs last week. Patient received blood transfusion 1-2 weeks ago from [facility] for Hgb level of 6.4. Does not believe that it is his Ibrutinib. Would like iron panel and further evaluation for possible GI bleeding. 19:18 Physician consultation: Oncology Jareth was called at 18:20, was contacted at 19:16, pm1 regarding consult, patient's condition, and will see patient tomorrow, would like admission per Dr. Garrison Pulido MD. 19:48 Physician consultation: Garrison Pulido MD was contacted at 19:49, regarding admission, pm1 and will see patient. 10/18 14:03 Order name: Type And Screen [facility] 10/18 14:03 Order name: CBC with Diff; Complete Time: 14:38 jl7 10/18 14:03 Order name: Chem 7; Complete Time: 14:38 jl7 10/18 14:42 Order name: Bb Add On snw 10/18 15:02 Order name: Packed RBC Leukored EDMS 10/18 17:03 Order name: TRANSFERRIN SAT/IRON BINDING; Complete Time: 17:39 pm1 10/18 17:03 Order name: LFT's; Complete Time: 17:39 pm1 10/18 17:03 Order name: Iron Level; Complete Time: 17:39 pm1 10/18 17:03 Order name: Ferritin pm1 10/18 18:10 Order name: PT-INR; Complete Time: 19:22 pm1 10/18 21:01 Order name: CBC with Automated Diff EDMS 10/18 14:42 Order name: Chest Single View XRAY; Complete Time: 15:31 snw 10/18 21:00 Order name: CONS Pharmacy Consult EDMS 10/18 21:01 Order name: Regular EDMS 10/18 21:01 Order name: CBC with Automated Diff EDMS 10/18 21:01 Order name: Comprehensive Metabolic Panel EDMS 10/18 21:01 Order name: Comprehensive Metabolic Panel EDMS 10/18 21:01 Order name: Protime (+INR) EDMS 10/18 21:01 Order name: Protime (+INR) EDMS 10/18 21:01 Order name: PTT, Activated Partial Thromb EDMS 10/18 21:01 Order name: PTT, Activated Partial Thromb EDMS 10/18 21:02 Order name: Vitamin B12 Level EDMS 10/18 21:03 Order name: Vitamin B12 Level EDMS 10/19 02:17 Order name: Glucose, Ancillary Testing EDMS 10/19 06:26 Order name: Iron EDMS 10/19 06:26 Order name: Ferritin EDMS 10/19 06:26 Order name: Folic Acid, (Folate) EDMS 10/18 14:42 Order name: Oxygen: 2L; Complete Time: 16:18 snw 10/18 21:02 Order name: CONS Physician Consult EDMS Administered Medications: No medications were administered Disposition: 10/19/19 19:22 Hospitalization ordered by Garrison Pulido for Inpatient Admission. Preliminary diagnosis are Anemia, unspecified, Gastrointestinal hemorrhage, unspecified. - Bed requested for Telemetry/MedSurg (Inpatient). - Status is Inpatient Admission. em1 - Condition is Stable. - Problem is new. - Symptoms have improved. Addendum: 10/21/2019 19:26 Co-signature as Attending Physician, Ajit Mtz MD. r n Signatures: Dispatcher [employer] [facility] Marla Johns, STEAM BONE PRESS TENDER-C STEAM BONE PRESS TENDER-Csnw Ajit Mtz MD MD rn Martinez, Eric em1 Daisy Hong RN RN cg Tomas Vega, ISHMAEL GRAIN BROKER pm1 Gregorio Rashid RN RN jl7 Bernardino Galarza RN RN ll1 Corrections: (The following items were deleted from the chart) 10/18 15:02 14:42 PACKED RBC LEUKORED -1+[id number].LAB.BRZ ordered. [facility] 15:02 14:44 ABO/RH typing ordered. [facility] 15:02 14:44 Antibody Screen ordered. [facility] 19:59 19:22 Hospitalization Ordered by Garrison Pulido MD for Inpatient Admission. Preliminary cg diagnosis is Anemia, unspecified; Gastrointestinal hemorrhage, unspecified. Bed requested for Telemetry/MedSurg (Inpatient). Status is Inpatient Admission. Condition is Stable. Problem is new. Symptoms have improved. pm1 20:00 19:59 10/19/2019 19:22 Hospitalization Ordered by Garrison Pulido MD for Inpatient cg Admission. Preliminary diagnosis is Anemia, unspecified; Gastrointestinal hemorrhage, unspecified. Bed requested for [facility] ER HOLD. Status is Inpatient Admission. Condition is Stable. Problem is new. Symptoms have improved. 10/19 06:30 10/18 20:00 10/19/2019 19:22 Hospitalization Ordered by Garrison Pulido MD for Inpatient cg Admission. Preliminary diagnosis is Anemia, unspecified; Gastrointestinal hemorrhage, unspecified. Bed requested for [facility] ER HOLD. Status is Inpatient Admission. Condition is Stable. Problem is new. Symptoms have improved. 10/19 06:30 06:30 10/19/2019 19:22 Hospitalization Ordered by Garrison Pulido MD for Inpatient cg Admission. Preliminary diagnosis is Anemia, unspecified; Gastrointestinal hemorrhage, unspecified. Bed requested for Telemetry/MedSurg (Inpatient). Status is Inpatient Admission. Condition is Stable. Problem is new. Symptoms have improved. 06:34 06:30 10/19/2019 19:22 Hospitalization Ordered by Garrison Puldio MD for Inpatient cg Admission. Preliminary diagnosis is Anemia, unspecified; Gastrointestinal hemorrhage, unspecified. Bed requested for Telemetry/MedSurg (Inpatient). Status is Inpatient Admission. Condition is Stable. Problem is new. Symptoms have improved. cg 07:44 06:34 10/19/2019 19:22 Hospitalization Ordered by Garrison Pulido MD for Inpatient em1 Admission. Preliminary diagnosis is Anemia, unspecified; Gastrointestinal hemorrhage, unspecified. Bed requested for Telemetry/MedSurg (Inpatient). Status is Inpatient Admission. Condition is Stable. Problem is new. Symptoms have improved. cg
[2019-10-19] MEDS ORDERED: NA CHLORIDE 0.9% 500 ML ONE ×2 (20:01→22:56)
[2019-10-19] MEDS ORDERED: ACETAMINOPHEN 500 MG TAB PO PRN (20:57)
[2019-10-19] MEDS ORDERED: ONDANSETRON 4 MG/2 ML VIAL IV PRN (20:57)
[2019-10-19] MEDS ORDERED: MORPHINE 2 MG/ML SYR IV PRN (20:57)
[2019-10-19] MEDS: NA CHLORIDE 0.9% 1,000 ML IV SCH (21:00)
[2019-10-19] MEDS ORDERED: SODIUM CHLORIDE 0.9% 10ML INJ IV PRN (21:02)
[2019-10-19 21:23] VITALS: BMI 25.2
[2019-10-19] MEDS: PANTOPRAZOLE 40 MG INJ IVP SCH (22:00)
[2019-10-19] MEDS ORDERED: PANTOPRAZOLE 40 MG INJ ONE (22:56)
[2019-10-19] MEDS ORDERED: NA CHLORIDE 0.9% 1,000 ML ONE (22:56)
[2019-10-20 04:50] LABS: Absolute Lymphocytes (CBC) 2.9 K/uL (0.7-4.9); Basophils % 1.2 % (0-1.3); Hematocrit 25.4 % (39.6-49.0); Lymphocytes % 62.9 % (15.3-44.8); MPV 9.2 fL (7.6-11.3); RBC Red Blood Cell Count 2.94 M/uL (4.33-5.43)
[2019-10-20 05:46] LABS: Protime INR 1.16
[2019-10-20 06:25] LABS: Ferritin 11.5 ng/mL (26-388); Folic Acid, (Folate) 16.5 ng/mL (3.1-17.5); Potassium 3.9 mmol/L (3.5-5.1); Protein, Total 5.8 g/dL (6.4-8.2)
--- NOTE | 2019-10-20 06:40 | P.HP ---
Certification for Inpatient Patient admitted to: Inpatient With expected LOS: >2 Midnights Patient will require the following post-hospital care: None Practitioner: I am a practitioner with admitting privileges, knowledge of patient current condition, hospital course, and medical plan of care. Services: Services provided to patient in accordance with Admission requirements found in Title 42 Section 412.3 of the Code of Federal Regulations Patient History Date of Service: 10/19/19 Reason for admission: Anemia; h/o of CLL History of Present Illness: Patient is a 74-year-old gentleman who came to the hospital with severe anemia. Patient has a history of CLL and patient is on current treatment but has had multiple blood transfusions over the last year. Patient has been feeling weak and shortness of breath. Patient will be admitted to the hospital for blood transfusion. Patient also has a history of hypertension, type 2 diabetes, coronary artery disease, and chronic kidney disease. Patient will need blood transfusion and will discuss with Hematology regarding plan of care going forward. Patient will also get GI consultation for evaluation of lower GI bleed. Allergies No Known Allergies Allergy (Verified 10/19/19 21:29) Home Medications: Atorvastatin Calcium 1 tab PO DAILY 12/12/18 Gabapentin 1 tab PO BID 12/12/18 Tamsulosin [Flomax*] 1 tab PO DAILY 12/12/18 Amlodipine [Norvasc*] 2 tab PO DAILY 06/11/19 Aspirin [Adult Aspirin Regimen] 81 mg PO DAILY 06/11/19 Clopidogrel Bisulfate [Plavix*] 75 mg PO DAILY 06/11/19 Nitroglycerin 0.4 mg SL PRN PRN 06/11/19 Amlodipine [Norvasc*] 5 mg PO DAILY tab 06/23/19 Fluconazole [Diflucan] 100 mg PO DAILY 14 Days tablet 06/23/19 Hydralazine [Apresoline*] 10 mg IV Q6HP PRN vial 06/23/19 Metoprolol Tartrate [Lopressor*] 25 mg PO BID 6AM 6PM tab 06/23/19 Valacyclovir HCl [Valtrex] 1,000 mg PO DAILY #14 tablet 06/23/19 traMADol HCL [Ultram*] 50 mg PO TID PRN tab 06/23/19 - Past Medical/Surgical History Has patient received pneumonia vaccine in the past: Yes Diabetic: Yes -: Diabetes mellitus type 2, insulin dependent -: Hypertension -: CAD with prior stents -: Hyperlipidemia -: CLL/SLL -: Chronic renal disease, stage III -: Heart catheterization with 4 stents -: Appendectomy -: Right knee replacement Psychosocial/ Personal History: Patient is . He has no children - Family History Father Medical History: Cancer Mother Medical History: Cancer - Social History Smoking Status: Former smoker Alcohol use: No CD- Drugs: No Place of Residence: Home Review of Systems 10-point ROS is otherwise unremarkable Physical Examination - Vital Signs Temperature: 97.7 F Blood Pressure: 149/47 Pulse: 63 Respirations: 14 Pulse Ox (%): 99 - Physical Exam General: Alert, In no apparent distress, Oriented x3 HEENT: Atraumatic, PERRLA, Mucous membr. moist/pink, EOMI, Sclerae nonicteric Neck: Supple, 2+ carotid pulse no bruit, No LAD, Without JVD or thyroid abnormality Respiratory: Clear to auscultation bilaterally, Normal air movement Cardiovascular: Regular rate/rhythm, Normal S1 S2, No murmurs Gastrointestinal: Normal bowel sounds, Soft and benign, Non-distended, No tenderness Musculoskeletal: No clubbing, No swelling, No tenderness Integumentary: No rashes Neurological: Normal gait, Normal speech, Normal strength at 5/5 x4 extr, Normal tone, Sensation intact, Cranial nerves 3-12 intact, Normal affect Lymphatics: No axilla or inguinal lymphadenopathy - Studies Laboratory Data (last 24 hrs) 10/19/19 18:45: PT 12.9 H, INR 1.10 10/19/19 14:08: Total Bilirubin 0.2, AST 7 L, ALT 11 L, Alkaline Phosphatase 65 10/19/19 14:08: Sodium 136, Potassium 4.2, BUN 26 H, Creatinine 1.53 H, Glucose 151 H 10/19/19 14:08: WBC 4.1 L, Hgb 6.7 L*, Hct 20.8 L*, Plt Count 164 Assessment & Plan - Problems (Diagnosis) (1) Lower GI bleed Current Visit: Yes Status: Acute (2) Anemia in chronic illness Current Visit: Yes Status: Acute (3) CLL (chronic lymphocytic leukemia) Current Visit: No Status: Chronic (4) CKD stage 3 due to type 2 diabetes mellitus Current Visit: No Status: Chronic (5) Diabetes Current Visit: No Status: Chronic Qualifiers: Diabetes mellitus type: type 2 (6) History of coronary artery disease Current Visit: No Status: Chronic (7) Hypertension Current Visit: No Status: Chronic Qualifiers: Hypertension type: essential hypertension Qualified Code(s): I10 - Essential (primary) hypertension (8) CKD (chronic kidney disease) Current Visit: Yes Status: Acute Qualifiers: Chronic kidney disease stage: stage 3 (moderate) Qualified Code(s): N18.3 - Chronic kidney disease, stage 3 (moderate) - Plan Plan: 1. Continue with IV hydration and PPI 2. Hematology consultation 3. Continue with pain control 4. Will advance diet if okay with GI 5. GI consultation 6. Serial H&H, and we will monitor LFTs and lipase along with electrolytes. 7. Patient with iron deficiency and B12 deficiency 8. GI and DVT prophylaxis Discharge Plan: Home Plan to discharge in: Greater than 2 days - Advance Directives Does patient have a Living Will: No Does patient have a Durable POA for Healthcare: No - Code Status/Comfort Care Code Status Assessed: Yes Code Status: Full Code Critical Care: No Time Spent Managing PTS Care (In Minutes): 45
--- NOTE | 2019-10-20 07:54 | P.PN ---
Subjective Date of Service: 10/20/19 Patient is clinically improved. Will go ahead and start diet. Will discuss with GI and Hematology and it workup can be done as an outpatient and we may be able to discharge him home. Otherwise he may need continued inpatient workup for the anemia. Patient lives in [place] so we need to discuss with cons ultants so patient can notify family. Review of Systems 10-point ROS is otherwise unremarkable Physical Examination - Vital Signs Temperature: 97.7 F Blood Pressure: 149/47 Pulse: 63 Respirations: 14 Pulse Ox (%): 99 - Physical Exam General: Alert, In no apparent distress, Oriented x3 Respiratory: Clear to auscultation bilaterally, Normal air movement Cardiovascular: Regular rate/rhythm, Normal S1 S2, No murmurs Gastrointestinal: Normal bowel sounds, Soft and benign, Non-distended, No ten derness Musculoskeletal: No clubbing, No swelling Neurological: Sensation intact, Cranial nerves 3-12 intact - Studies Laboratory Data (last 24 hrs) 10/19/19 18:45: PT 12.9 H, INR 1.10 10/19/19 14:08: Total Bilirubin 0.2, AST 7 L, ALT 11 L, Alkaline Phosphatase 65 10/19/19 14:08: Sodium 136, Potassium 4.2, BUN 26 H, Creatinine 1.53 H, Glucose 151 H 10/19/19 14:08: WBC 4.1 L, Hgb 6.7 L*, Hct 20.8 L*, Plt Count 164 Medications List Reviewed: Yes Assessment & Plan - Problems (Diagnosis) (1) Lower GI bleed Current Visit: Yes Status: Acute (2) Anemia in chronic illness Current Visit: Yes Status: Acute (3) CLL (chronic lymphocytic leukemia) Current Visit: No Status: Chronic (4) CKD stage 3 due to type 2 diabetes mellitus Current Visit: No Status: Chronic (5) Diabetes Current Visit: No Status: Chronic Qualifiers: Diabetes mellitus type: type 2 (6) History of coronary artery disease Current Visit: No Status: Chronic (7) Hypertension Current Visit: No Status: Chronic Qualifiers: Hypertension type: essential hypertension Qualified Code(s): I10 - Essential (primary) hypertension (8) CKD (chronic kidney disease) Current Visit: Yes Status: Acute Qualifiers: Chronic kidney disease stage: stage 3 (moderate) Qualified Code(s): N18.3 - Chronic kidney disease, stage 3 (moderate) - Plan Plan: Continue with current plan of care as mentioned below 1. Continue with IV hydration and PPI 2. Hematology consultation 3. Continue with pain control 4. Will advance diet if okay with GI 5. GI consultation 6. Continue monitoring H&H, and continue with monitoring electrolytes 7. Patient with iron deficiency and B12 deficiency 8. GI and DVT prophylaxis Discharge Plan: Home Plan to discharge in: 48 Hours - Advance Directives Does patient have a Living Will: No Does patient have a Durable POA for Healthcare: No - Code Status/Comfort Care Code Status: Full Code Critical Care: No Time Spent Managing PTS Care (In Minutes): 30
[2019-10-20 08:32] LABS: Blood Morphology Comment NOT SEEN (NOT SEEN); Platelet Estimate ADEQ
[2019-10-20] MEDS ORDERED: CYANOCOBALAMIN 1,000 MCG TAB SL SCH (09:00)
[2019-10-20] MEDS: NA CHLORIDE 0.9% 1,000 ML IV SCH (09:03)
[2019-10-20] MEDS: PANTOPRAZOLE 40 MG INJ IVP SCH (09:03)
[2019-10-20 09:32] LABS: Hematocrit 29.6 % (39.6-49.0)
[2019-10-20 10:52] VITALS: O2SAT 98
--- NOTE | 2019-10-20 11:18 | P.DS ---
Admission Date: 10/19/19 Discharge Date: 10/20/19 Primary Care Provider: Dr. Howard Disposition: ROUTINE DISCHARGE Discharge Condition: GOOD Reason for Admission: Anemia; h/o of CLL Consultations: Oncology-Dr. Howard Procedures: Transfusion of 2 units of packed red blood cells. Medical problem list: Acute on chronic anemia with history of CLL Hypertension Diabetes mellitus type 2 Chronic renal disease stage III CAD Brief History of Present Illness: 74-year-old male with history of diabetes, hypertension, CLL. Patient had lab drawn by oncology. Patient found to be anemic. He was told to go to the ER for further evaluation. Patient denies any melena, rectal bleeding. Hospital Course: Patient presented with abnormal lab indicating acute on chronic anemia. Patient with underlying CLL. Hemoglobin 6.7. Patient was transfused 2 units with improvement. Repeat hemoglobin after transfusion was 8.3. This was monitored. Further repeat shows hemoglobin at 9.5. Case discussed at length with oncology. Patient denied any melena, rectal bleeding, or vomiting of blood. Patient will be discharged home. Oncology recommends that the patient follow up with his GI specialist to further evaluate for possible underlying GI related issue. This was addressed in detail with the patient. Patient understands. Patient will likely require EGD and colonoscopy as an outpatient. Patient may have underlying GERD. At discharge he will continue with Protonix 40 mg daily. Recommend to recheck lab-CBC in 1 week to monitor his progress. Recommend follow up with hematology/oncology within 1 week. Patient with underlying diabetes, hypertension, CAD, hyperlipidemia, and BPH. Patient will continue with his current medications including aspirin, Plavix, Norvasc, metoprolol, and Lipitor. Vital Signs/Physical Exam: Temp Pulse Resp BP Pulse Ox 97.5 F 71 18 150/52 H 99 10/20/19 08:00 10/20/19 08:00 10/20/19 08:00 10/20/19 08:00 10/20/19 08:00 General: Alert, In no apparent distress, Oriented x3, Cooperative HEENT: Atraumatic Neck: Supple Respiratory: Clear to auscultation bilaterally, Normal air movement Cardiovascular: Normal pulses, Regular rate/rhythm Gastrointestinal: Normal bowel sounds, Soft and benign, Non-distended, No tenderness, No masses, No rebound, No guarding Musculoskeletal: No erythema, No tenderness, No warmth Integumentary: No tenderness/swelling, No erythema, No warmth, No cyanosis Neurological: Normal speech, Normal strength at 5/5 x4 extr, Normal tone, Normal affect Laboratory Data at Discharge: WBC 4.5 K/uL (4.3-10.9) 10/20/19 04:25 Hgb 9.5 g/dL (13.6-17.9) L 10/20/19 09:07 Hct 29.6 % (39.6-49.0) L D 10/20/19 09:07 Plt Count 164 K/uL (152-406) 10/20/19 04:25 PT 13.6 SECONDS (9.5-12.5) H 10/20/19 05:15 INR 1.16 10/20/19 05:15 APTT 31.0 SECONDS (24.3-36.9) 10/20/19 05:15 Sodium 140 mmol/L (136-145) 10/20/19 05:15 Potassium 3.9 mmol/L (3.5-5.1) 10/20/19 05:15 BUN 19 mg/dL (7-18) H 10/20/19 05:15 Creatinine 1.19 mg/dL (0.55-1.3) 10/20/19 05:15 Glucose 80 mg/dL (74-106) 10/20/19 05:15 Total Bilirubin 1.0 mg/dL (0.2-1.0) 10/20/19 05:15 AST 10 U/L (15-37) L 10/20/19 05:15 ALT 10 U/L (12-78) L 10/20/19 05:15 Alkaline Phosphatase 49 U/L (45-117) 10/20/19 05:15 Home Medications: Atorvastatin Calcium 1 tab PO DAILY 12/12/18 Gabapentin 1 tab PO BID 12/12/18 Tamsulosin [Flomax*] 1 tab PO DAILY 12/12/18 Amlodipine [Norvasc*] 2 tab PO DAILY 06/11/19 Aspirin [Adult Aspirin Regimen] 81 mg PO DAILY 06/11/19 Clopidogrel Bisulfate [Plavix*] 75 mg PO DAILY 06/11/19 Nitroglycerin 0.4 mg SL PRN PRN 06/11/19 Amlodipine [Norvasc*] 5 mg PO DAILY tab 06/23/19 Fluconazole [Diflucan] 100 mg PO DAILY 14 Days tablet 06/23/19 Metoprolol Tartrate [Lopressor*] 25 mg PO BID 6AM 6PM tab 06/23/19 Valacyclovir HCl [Valtrex] 1,000 mg PO DAILY #14 tablet 06/23/19 traMADol HCL [Ultram*] 50 mg PO TID PRN tab 06/23/19 Pantoprazole [Protonix Tab] 40 mg PO DAILY #30 tab 10/20/19 New Medications: Pantoprazole [Protonix Tab] 40 mg PO DAILY #30 tab Patient Discharge Instructions: 1. Recommend follow up with PCP in 1 week to follow up this hospitalization. 2. Patient presented with abnormal lab indicating acute on chronic anemia. Patient with underlying CLL. Hemoglobin 6.7. Patient was transfused 2 units with improvement. Repeat hemoglobin after transfusion was 8.3. This was monitored. Further repeat shows hemoglobin at 9.5. Case discussed at length with oncology. Patient denied any melena, rectal bleeding, or vomiting of blood. Patient will be discharged home. Oncology recommends that the patient follow up with his GI specialist to further evaluate for possible underlying GI related issue. This was addressed in detail with the patient. Patient understands. Patient will likely require EGD and colonoscopy as an outpatient. Patient may have underlying GERD. At discharge he will continue with Protonix 40 mg daily. Recommend to recheck lab-CBC in 1 week to monitor his progress. Recommend follow up with hematology/oncology within 1 week. 3. Patient with underlying diabetes, hypertension, CAD, hyperlipidemia, and BPH. Patient will continue with his current medications including aspirin, Plavix, Norvasc, metoprolol, and Lipitor. Diet: ADA Activity: Ad kathy Time spent managing pt's care (in minutes): 55
[2019-10-20 18:03] VITALS: TEMP 98.2
[2019-10-20 19:15] VITALS: BP 160/53
== END 2019-10-20 18:01 | disposition home or self-care (01) ==
LOC: ER 13:15 → ERHOLD 21:02 → INTOOBSV 21:02 → 2ND 10-20 07:21
PROVIDERS: ADMIT Hospitalist; ATTEND Hospitalist
DX: C91.10 Chronic lymphocytic leukemia of B-cell type not having achieved remission (principal); D63.0 Anemia in neoplastic disease; K92.2 Gastrointestinal hemorrhage, unspecified; E11.22 Type 2 diabetes mellitus with diabetic chronic kidney disease; I12.9 Hypertensive chronic kidney disease with stage 1 through stage 4 chronic kidney disease, or unspecified chronic kidney disease; N18.3 Chronic kidney disease, stage 3 (moderate); E78.5 Hyperlipidemia, unspecified; I25.10 Atherosclerotic heart disease of native coronary artery without angina pectoris; D50.9 Iron deficiency anemia, unspecified; E53.8 Deficiency of other specified B group vitamins; Z79.82 Long term (current) use of aspirin; Z79.02 Long term (current) use of antithrombotics/antiplatelets; Z79.899 Other long term (current) drug therapy; Z95.5 Presence of coronary angioplasty implant and graft; Z87.891 Personal history of nicotine dependence; Z80.9 Family history of malignant neoplasm, unspecified
CPT/HCPCS: 85025 ×2; 80048; 36415; 86900; 86850; 85610 ×2; 85044; 86901; 82947 ×4; 80076; 85730; 85018; 85014; 82728 ×2; 82746; 82607; 83540 ×2; 80053; 84466; 71045; 36430; 99285; C9113 ×2; G0378 ×2; P9016 ×2; J7040 ×2; J7030 ×2